=== PATIENT | female | born 1945 | race Caucasian/White ===

== ENCOUNTER 2016-12-08 20:12 | Inpatient (IN) | payer OTHER ==
[~2016-12-08] VITALS: Ht 154.9 cm; Wt 68.2 kg
[~2016-12-08 20:12] MED LIST: ALBUAER19 INH; BIOTCAP PO; CALCTAB7 PO; CLR10 PO; CZR50 PO; FERR1TAB13 PO; FLUT220A INH; GFNSR600 PO; MAGN400T6 PO; PRED20TA2 PO; PRLSR20 PO; TRIA37.5 PO
[2016-12-08] MEDS ORDERED: ALBUT/IPRATROP 3MG/0.5MG NEB 3 ML VIAL INH STA (20:39)
[2016-12-08] MEDS ORDERED: SODIUM CHLORIDE 0.9% 1000ML 1,000 ML IV STA (20:39)
[2016-12-08 20:59] LABS: BASO % 0.1 %; BASO ABS # 0.01 K/uL (0-0.2); COMPLETE YES; EOS % 1.1 %; HEMATOCRIT 47.2 % (37-47); IG% 0.3 %; LYMPH ABS # 1.07 K/uL (1.2-3.4); MEAN CORPUSCULAR HGB CONC 34.7 g/dl (32-36); MEAN PLATELET VOLUME 9.9 fL (7.4-10.4); MONO % 6.1 %; NEUT % 85.4 %; PLATELET COUNT 249 K/uL (130-400); RED BLOOD COUNT 5.13 M/uL (4.2-5.4); WHITE BLOOD COUNT 15.33 K/uL (4.8-10.8)
--- NOTE | 2016-12-08 21:07 | DIAGNOSTIC IMAGING REPORT ---
CHEST ONE VIEW PORTABLE CLINICAL HISTORY: Evaluate Fever/Sepsis fever COMPARISON STUDY: 10/11/2016 FINDINGS: Mild interstitial infiltrate left base superimposed upon mild chronic interstitial change. No evidence for cardiac enlargement. Diaphragms are smooth. Very slight blunting left lateral costophrenic angle. Minimal right basilar atelectatic change. IMPRESSION: Small interstitial infiltrate left base superimposed upon mild chronic baseline interstitial change. Electronically signed by: Darian Crowe M.D. 12/08/2016 9:06 PM Dictated Date/Time: 12/08/2016 9:05 PM
[2016-12-08 21:13] LABS: INR 1.1 (0.9-1.1); PROTHROMBIN TIME (PATIENT) 11.5 SECONDS (9.0-12.0)
[2016-12-08 21:15] LABS: ALT/SGPT 56 U/L (12-78); BLOOD UREA NITROGEN 8 mg/dl (7-18); BUN/CREATININE RATIO 8.8 (10-20); CALCIUM 9.7 mg/dl (8.5-10.1); CARBON DIOXIDE 25 mmol/L (21-32); CHLORIDE 97 mmol/L (98-107); CREATININE 0.93 mg/dl (0.60-1.20); GLUCOSE 123 mg/dl (70-99); SODIUM 135 mmol/L (136-145)
[2016-12-08 21:18] LABS: URINE APPEARANCE CLEAR (CLEAR); URINE BILIRUBIN NEG (NEG); URINE COLOR YELLOW; URINE EPITHELIAL CELL AUTO 0-5 /lpf (0-5); URINE NITRITE NEG (NEG); URINE PH 7.5 (4.5-7.5); URINE SPECIFIC GRAVITY 1.005 (1.000-1.030); UROBILINOGEN NEG (NEG); ZZUR CULT IF INDIC CLEAN CATCH NO
[2016-12-08 21:20] LABS: ALKALINE PHOSPHATASE 56 U/L (45-117); AST/SGOT 30 U/L (15-37)
[2016-12-08 21:22] LABS: MANUAL MICROSCOPIC REQUIRED? NO; REVIEW REQ? NO
[2016-12-08] MEDS ORDERED: CEFTRIAXONE SOD INJ 1 GM ADDVIAL IV STA (21:24)
[2016-12-08] MEDS ORDERED: POTASSIUM CHLORIDE 10 MEQ TABCR PO STA (21:24)
[2016-12-08] MEDS ORDERED: CALC-5 PO (21:27)
[2016-12-08] MEDS ORDERED: GLC/500 PO (21:29)
[2016-12-08] MEDS ORDERED: NITR-5 PO (21:29)
[2016-12-08] MEDS ORDERED: OPTIRAY 320 IV PRN (21:30)
[2016-12-08] MEDS ORDERED: AZITHROMYCIN IV 500 MG in DEXTROSE 5% 250ML 250 ML IV ONE (21:30)
--- NOTE | 2016-12-08 21:48 | DIAGNOSTIC IMAGING REPORT ---
CHEST CTA for PULMONARY ARTERIES CT DOSE: 299.06 mGy.cm HISTORY: Dyspnea chest pain TECHNIQUE: Multiaxial CT images of the chest were performed following the intravenous administration of contrast to evaluate the pulmonary arteries. Maximal intensity projection images were also obtained. COMPARISON STUDY: 10/11/2016 FINDINGS: Mild atherosclerotic change thoracic aorta and pulmonary arterial vasculature enhances appropriately. There are no major filling defects. There are small bilateral pleural effusions. Pulmonary vasculature is moderately prominent. Nodular change of both hemithoraces is slightly increased. This includes a slight increase in number as well as size. Compression deformities of the thoracic spine are similar. IMPRESSION: 1. No evidence for pulmonary embolus. 2. Findings of mild and/or developing congestive heart failure. 3. Small bilateral pleural effusions. 4. Pulmonary nodularity slightly progressive compared to the prior study. Metastatic disease is considered Electronically signed by: Darian Crowe M.D. 12/08/2016 9:47 PM Dictated Date/Time: 12/08/2016 9:42 PM
[2016-12-08] MEDS ORDERED: HYDROCODONE/HOMATROPINE SYRUP 5MG/1.5MG 5ML UDP PO STA (23:02)
--- NOTE | 2016-12-08 23:30 | EMERGENCY ROOM VISIT NOTE ---
History Report prepared by Mikala: Yuni Boles Under the Supervision of: Dr. Bin Thompson D.O. First contact with patient: 20:27 Chief Complaint: RESPIRATORY PROBLEMS Stated Complaint: TROUBLE BREATHING History of Present Illness The patient is a 71 year old female who presents to the Emergency Room with complaints of worsening shortness of breath beginning yesterday. She states that she has been using her nebulizer and rescue inhaler at home which has given her slight relief to her breathing. Talking and movement causes her shortness of breath to worsen. Today she experienced a racing heart, cough, weakness, fatigue and a fever. She has taken Tylenol today to control the fever. For the past 2 weeks that patient has been treated for a UTI by two different antibiotics. This is her third UTI since September. The patient was also recently diagnosed with acid reflux and was doing well controlling the symptoms until she went off her steroids. Source of History: patient Onset: yesterday Position: other (global) Quality: other (shortness of breath) Timing: worsening Modifying Factors (Worsening): movement, other (talking) Modifying Factors (Relieving): tylenol, other (rescue inhaler, nebulizer) Associated Symptoms: + cough, + fatigue, + fevers, + weakness Review of Systems See HPI for pertinent positives & negatives. A total of 10 systems reviewed and were otherwise negative. Past Medical & Surgical Medical Problems: (1) Abdominal pain (2) Benign neoplasm of colon (3) DVT, lower extremity (4) Essential hypertension (5) GENERAL OSTEOARTHROSIS (6) Hyperinsulinism (7) Idiopathic osteoporosis (8) Lumbar stenosis with neurogenic claudication Surgical Problems: (1) Hx of cholecystectomy Family History Cancer Diabetes mellitus Gallbladder disease Heart disease Hypertension Social History Smoking Status: Never Smoker Smokeless Tobacco Use: No Alcohol Use: occasionally Marital Status: Housing Status: lives with family Occupation Status: retired Current/Historical Medications Scheduled Albuterol Inhaler (Ventolin Inhaler), 2 PUFFS INH PRN Biotin (Hard Nails), 2.5 MG PO DALILY Calcium-Magnesium W/ Vitamin D (Calcium 500), 1 TAB PO BID Ferrous Sulfate (Kp Ferrous Sulfate), 1 TAB PO DAILY Fluticasone Propionate Hfa (Flovent Hfa 220MCG Inhaler), 2 PUFF INH BID Loratadine (Claritin), 10 MG PO DAILY Losartan Potassium (Losartan Potassium), 50 MG PO DAILY Magnesium Oxide (Mag-Ox), 400 MG PO DAILY Metformin Hcl (Glucophage), 500 MG PO BID Nitrofurantoin Monohyd Macrocr (Macrobid), 100 MG PO BID Omeprazole (Prilosec), 20 MG PO BID Triamterene/Hctz (Dyazide 37.5MG/25MG), 1 TAB PO DAILY Allergies Coded Allergies: Ciprofloxacin (Verified Allergy, Unknown, rash, 12/08/16) pt Lisinopril (Verified Adverse Reaction, Unknown, COUGH, 12/08/16) Statins (Verified Adverse Reaction, Unknown, joint and muscle pains, ) Physical Exam Vital Signs Date Time Temp Pulse Resp B/P Pulse Ox O2 Delivery O2 Flow Rate FiO2 12/08/16 21:55 120 28 118/89 95 Nasal Cannula 2.0 12/08/16 21:03 123 12/08/16 20:22 36.9 80 18 156/85 94 Room Air Physical Exam CONSTITUTIONAL/VITAL SIGNS: Reviewed / noted above. GENERAL: Non-toxic in appearance. INTEGUMENTARY: Warm, dry, and [place]. HEAD: Normocephalic. EYES: without scleral icterus or trauma. ENT/OROPHARYNX: clear and moist. LYMPHADENOPATHY/NECK: Is supple without lymphadenopathy or meningismus. RESPIRATORY: Lungs clear and equal. CARDIOVASCULAR: Regular rate and rhythm. GI/ABDOMEN: Soft and nontender. No organomegaly or pulsatile mass. No rebound or guarding. Normal bowel sounds. EXTREMITIES: Warm and well perfused. BACK: No CVA tenderness. NEUROLOGICAL: Intact without focal deficits. PSYCHIATRIC: normal affect. MUSCULOSKELETAL: Normally developed with good muscle tone. Medical Decision & Procedures ER Provider Diagnostic Interpretation: X ray results and stated below per my interpretation and radiologist interpretation. Other radiology results and stated below per my review and radiologist interpretation: CHEST ONE VIEW PORTABLE CLINICAL HISTORY: Evaluate Fever/Sepsis fever COMPARISON STUDY: 10/11/2016 FINDINGS: Mild interstitial infiltrate left base superimposed upon mild chronic interstitial change. No evidence for cardiac enlargement. Diaphragms are smooth. Very slight blunting left lateral costophrenic angle. Minimal right basilar atelectatic change. IMPRESSION: Small interstitial infiltrate left base superimposed upon mild chronic baseline interstitial change. Electronically signed by: Darian Crowe M.D. 12/08/2016 9:06 PM Dictated Date/Time: 12/08/2016 9:05 PM CHEST CTA for PULMONARY ARTERIES CT DOSE: 299.06 mGy.cm HISTORY: Dyspnea chest pain TECHNIQUE: Multiaxial CT images of the chest were performed following the intravenous administration of contrast to evaluate the pulmonary arteries. Maximal intensity projection images were also obtained. COMPARISON STUDY: 10/11/2016 FINDINGS: Mild atherosclerotic change thoracic aorta and pulmonary arterial vasculature enhances appropriately. There are no major filling defects. There are small bilateral pleural effusions. Pulmonary vasculature is moderately prominent. Nodular change of both hemithoraces is slightly increased. This includes a slight increase in number as well as size. Compression deformities of the thoracic spine are similar. IMPRESSION: 1. No evidence for pulmonary embolus. 2. Findings of mild and/or developing congestive heart failure. 3. Small bilateral pleural effusions. 4. Pulmonary nodularity slightly progressive compared to the prior study. Metastatic disease is considered Electronically signed by: Darian Crowe M.D. 12/08/2016 9:47 PM Dictated Date/Time: 12/08/2016 9:42 PM Laboratory Results 12/08/16 20:37 Red Blood Count 5.13, Mean Corpuscular Volume 92.0, Mean Corpuscular Hemoglobin 32.0, Mean Corpuscular Hemoglobin Concent 34.7, Mean Platelet Volume 9.9, Neutrophils (%) (Auto) 85.4, Lymphocytes (%) (Auto) 7.0, Monocytes (%) (Auto) 6.1, Eosinophils (%) (Auto) 1.1, Basophils (%) (Auto) 0.1, Neutrophils # (Auto) 13.10, Lymphocytes # (Auto) 1.07, Monocytes # (Auto) 0.93, Eosinophils # (Auto) 0.17, Basophils # (Auto) 0.01 12/08/16 20:37 Test 12/08/16 20:37 12/08/16 20:55 12/08/16 21:05 12/08/16 22:58 White Blood Count 15.33 K/uL (4.8-10.8) Red Blood Count 5.13 M/uL (4.2-5.4) Hemoglobin 16.4 g/dL (12.0-16.0) Hematocrit 47.2 % (37-47) Mean Corpuscular Volume 92.0 fL (80-100) Mean Corpuscular Hemoglobin 32.0 pg (25-34) Mean Corpuscular Hemoglobin Concent 34.7 g/dl (32-36) Platelet Count 249 K/uL (130-400) Mean Platelet Volume 9.9 fL (7.4-10.4) Neutrophils (%) (Auto) 85.4 % Lymphocytes (%) (Auto) 7.0 % Monocytes (%) (Auto) 6.1 % Eosinophils (%) (Auto) 1.1 % Basophils (%) (Auto) 0.1 % Neutrophils # (Auto) 13.10 K/uL (1.4-6.5) Lymphocytes # (Auto) 1.07 K/uL (1.2-3.4) Monocytes # (Auto) 0.93 K/uL (0.11-0.59) Eosinophils # (Auto) 0.17 K/uL (0-0.5) Basophils # (Auto) 0.01 K/uL (0-0.2) RDW Standard Deviation 44.9 fL (36.4-46.3) RDW Coefficient of Variation 13.3 % (11.5-14.5) Immature Granulocyte % (Auto) 0.3 % Immature Granulocyte # (Auto) 0.05 K/uL (0.00-0.02) Prothrombin Time 11.5 SECONDS (9.0-12.0) Prothromb Time International Ratio 1.1 (0.9-1.1) Activated Partial Thromboplast Time 25.9 SECONDS (21.0-31.0) Partial Thromboplastin Ratio 1.0 Anion Gap 13.0 mmol/L (3-11) Est Creatinine Clear Calc Drug Dose 48.8 ml/min Estimated GFR () 71.2 Estimated GFR (Non- 61.4 BUN/Creatinine Ratio 8.8 (10-20) Calcium Level 9.7 mg/dl (8.5-10.1) Total Bilirubin 0.6 mg/dl (0.2-1) Direct Bilirubin 0.2 mg/dl (0-0.2) Aspartate Amino Transf (AST/SGOT) 30 U/L (15-37) Alanine Aminotransferase (ALT/SGPT) 56 U/L (12-78) Alkaline Phosphatase 56 U/L (45-117) Total Creatine Kinase 69 U/L (26-192) Creatine Kinase MB < 0.5 ng/ml (0.5-3.6) Creatine Kinase MB Ratio (0-3.0) Troponin I < 0.015 ng/ml (0-0.045) Total Protein 8.5 gm/dl (6.4-8.2) Albumin 3.9 gm/dl (3.4-5.0) Urine Color YELLOW Urine Appearance CLEAR (CLEAR) Urine pH 7.5 (4.5-7.5) Urine Specific [place] 1.005 (1.000-1.030) Urine Protein NEG (NEG) Urine Glucose (UA) NEG (NEG) Urine Ketones NEG (NEG) Urine Occult Blood NEG (NEG) Urine Nitrite NEG (NEG) Urine Bilirubin NEG (NEG) Urine Urobilinogen NEG (NEG) Urine Leukocyte Esterase NEG (NEG) Urine WBC (Auto) 1-5 /hpf (0-5) Urine RBC (Auto) 0-4 /hpf (0-4) Urine Hyaline Casts (Auto) 0 /lpf (0-5) Urine Epithelial Cells (Auto) 0-5 /lpf (0-5) Urine Bacteria (Auto) NEG (NEG) Influenza Type A Antigen Neg for Influ A (NEG) Influenza Type B Antigen Neg for Influ B (NEG) Test 12/08/16 23:03 Laboratory results as stated above per my review. Medications Administered Medications (Trade) Dose Ordered Sig/Guillermo Route Start Time Stop Time Status Last Admin Dose Admin Sodium Chloride (Nss 1000ml) 1,000 ml @ 999 mls/hr Q1H1M STAT IV 12/08/16 20:39 12/08/16 21:39 DC 12/08/16 20:39 999 MLS/HR Albuterol/ Ipratropium (Duoneb) 3 ml NOW STAT INH 12/08/16 20:39 12/08/16 20:44 DC 12/08/16 20:39 3 ML Potassium Chloride (Klor-Con M10) 40 meq NOW STAT PO 12/08/16 21:24 12/08/16 21:28 DC 12/08/16 21:48 40 MEQ Ceftriaxone Sodium 1 gm 1 gm NOW STAT IV 12/08/16 21:24 12/08/16 21:28 DC 12/08/16 21:48 1 GM Azithromycin/ Dextrose (Zithromax IV/D5 250ml) 255 ml @ 125 mls/hr ONE ONCE IV 12/08/16 21:30 12/08/16 23:32 12/08/16 22:16 125 MLS/HR Hydrocodone Bit/ Homatropine Methylb (Hycodan Syrup) 5 ml NOW STAT PO 12/08/16 23:02 12/08/16 23:03 DC 12/08/16 23:07 5 ML ECG Indication: SOB/dyspnea Rate (beats per minute): 118 Rhythm: sinus tachycardia Findings: Q waves (Inferior), no acute ischemic change, no ectopy Change: no significant change (from 10/11/16) ED Course 2035: Previous medical records were reviewed. The patient was evaluated in room B6. A complete history and physical examination was performed. 2038: Douneb 3 ml INH, Sodium Chloride 1,000 ml @ 999 mls/hr IV. 2123: Rocephin Inj 1 gm IV, Klor-Con M10 40 meq PO. 2129: Azithromycin 500mg/ Dextrose 255 ml @ 125 mls/hr IV. 2249: Discussed the patient's case with Dr. Flor Lilly. The patient will be evaluated for further treatment and disposition. 2301: Hycodan Syrup 5 ml PO. Medical Decision The patient is a 71 year old female who presents to the ED with complaints of shortness of breath. According to family and the patient, the patient has a cough and shortness of breath as well as urinary tract infection since September. She has had increasing cough and shortness of breath over the past several weeks. She also is having shortness of breath with exertion. She has been diagnosed with reflux after being seen by ENT. She was placed on medication for this. The patient reportedly had a fever today at home. She has been taking Tylenol. She does not have a fever here. The patient's main symptom today is weakness and persistent coughing. Initial vital signs were unremarkable with a saturation of 94% on room air. She did become tachycardic during her stay. Her white blood cell count was 15.3. Potassium was 3.0. Chest x-ray revealed a left base infiltrate. This was not confirmed on chest CT scan. Urine did not show infection. Flu swab was negative. Troponin was negative. EKG showed a sinus tachycardia without cerumen change from previous EKG. CT scan of the chest reveals some pulmonary nodularity that is increased from October 11. Concern for metastatic disease. Also mild congestive heart failure. The patient was treated with Rocephin and Zithromax IV as well as by mouth potassium. She was also given a DuoNeb treatment and oral Hycodan. Because of the patient's persistent symptoms and her abnormal test results, the patient will be seen by the hospitalist service for further evaluation as an inpatient. the differential was considered includes acute myocardial infarction, acute coronary syndrome, myocarditis, pericarditis, pericardial effusions /tamponad, esophageal perforation, pulmonary embolism, pneumonia, pneumothorax, cardiomyopathy, congestive heart, anemia , COPD/asthma exacerbation. Consults Time Called: 2247 Consulting Physician: Dr. Flor Lilly Returned Call: [phone] Discussed the patient's case. The patient will be evaluated for further treatment and disposition. Impression Primary Impression: Dyspnea Additional Impressions: CHF (congestive heart failure) Pulmonary nodules Weakness Hypokalemia Pneumonia Scribe Attestation The scribe's documentation has been prepared under my direction and personally reviewed by me in its entirety. I confirm that the note above accurately reflects all work, treatment, procedures, and medical decision making performed by me. Departure Information Dispostion Being Evaluated By Hospitalist Referrals Kaz Andersen MD (PCP) Problem Qualifiers
[2016-12-09] VITALS (16 sets, daily range): BP systolic 95–125; BP diastolic 63–83; PULSE 85–122; TEMP 36.4–37.5; O2SAT 91–96; Ht 154.9 cm; Wt 68.2 kg
[2016-12-09] MEDS ORDERED: ACETAMINOPHEN 325 MG TAB PO PRN (00:30)
--- NOTE | 2016-12-09 01:38 | History and Physical ---
History & Physical Date & Time of Service: Dec 09, 2016 at 01:38 . Chief Complaint: shortness of breath . Primary Care Physician: Kaz Andersen MD . History of Present Illness Source: patient, family, clinic records, hospital records 71 [address]O female followed by Dr[address] Andersen. History of hypertension, asthma, GERD, DM type 2, and other problems noted below. Being followed by ENT for problems with GERD and associated hoarseness. Echo performed 10/30/16 for dyspnea on exertion. LVEF was 60-64%. Grade I diastolic dysfunction noted. RV systolic function was normal. Small circumferential pericardial effusion was noted. Follow-up echo was scheduled. E coli UTI diagnosed 11/28/16, treated with a 7-day course of nitrofurantoin. Presented to ED with 24 hour history of fever, chills, cough, SOB, malaise. Cough productive of white mucus. No associated chest pain. She is a nonsmoker. . Past Medical/Surgical History Chronic Medical Problems: (1) Asthma Status: Chronic (2) Munguia's esophagus Status: Chronic (3) Benign neoplasm of colon Status: Chronic (4) Diabetes mellitus, type 2 Status: Chronic (5) Dyslipidemia Status: Chronic (6) Essential hypertension Status: Chronic (7) GERD (gastroesophageal reflux disease) Status: Chronic (8) History of DVT (deep vein thrombosis) Status: Chronic (9) History of pancreatitis Permanent Comment: secondary to gallstone Status: Chronic (10) History of vertebral compression fracture Permanent Comment: T12 Status: Chronic (11) Lumbar stenosis with neurogenic claudication Status: Chronic (12) Osteoporosis Status: Chronic (13) Statin intolerance Status: Chronic Surgical Problems: (1) Status post cholecystectomy Status: Chronic . Family History Cancer Diabetes mellitus Gallbladder disease Heart disease Hypertension Social History Smoking Status: Never Smoker Smokeless Tobacco Use: No Alcohol Use: occasionally Marital Status: Housing status: lives with family Occupational Status: retired Immunizations History of Influenza Vaccine: Yes History of Tetanus Vaccine?: Yes History of Pneumococcal: Yes Pneumococcal Date: Jul 06, 2009 History of Hepatitis B Vaccine: Unknown Multi-Drug Resistant Organisms History of MDRO: No Allergies Coded Allergies: Ciprofloxacin (Verified Allergy, Unknown, rash, 12/08/16) pt Lisinopril (Verified Adverse Reaction, Unknown, COUGH, 12/08/16) Statins (Verified Adverse Reaction, Unknown, joint and muscle pains, ) Home Medications Scheduled Albuterol Inhaler (Ventolin Inhaler), 2 PUFFS INH PRN Biotin (Hard Nails), 2.5 MG PO DALILY Calcium-Magnesium W/ Vitamin D (Calcium 500), 1 TAB PO BID Ferrous Sulfate (Kp Ferrous Sulfate), 1 TAB PO DAILY Fluticasone Propionate Hfa (Flovent Hfa 220MCG Inhaler), 2 PUFF INH BID Loratadine (Claritin), 10 MG PO DAILY Losartan Potassium (Losartan Potassium), 50 MG PO DAILY Magnesium Oxide (Mag-Ox), 400 MG PO DAILY Metformin Hcl (Glucophage), 500 MG PO BID Nitrofurantoin Monohyd Macrocr (Macrobid), 100 MG PO BID Omeprazole (Prilosec), 20 MG PO BID Triamterene/Hctz (Dyazide 37.5MG/25MG), 1 TAB PO DAILY Review of Systems Constitutional: + chills, + fever, + weight loss (about 5 lbs) Eyes: No diplopia, No worsening of vision ENT: + problem reported (hoarseness), No hearing loss, No nasal symptoms, No sore throat Respiratory: + cough, + shortness of breath, No hemoptysis Cardiovascular: No chest pain, No edema Abdomen: + nausea (due to antibiotics), + problem reported (GERD), + vomiting ( due to antibiotics), No GI bleeding, No diarrhea Musculoskeletal: + joint pain Genitourinary - Female: + problem reported (recent dysuria, resolved with antibiotics) Neurologic: + problem reported (occasional headache) Endocrine: + fatigue, No excessive thirst, No excessive urination Hematologic / Lymphatic: No abnormal bleeding/bruising Integumentary: No new/changing skin lesions, No rash Physical Exam Vital Signs Date Time Temp Pulse Resp B/P Pulse Ox O2 Delivery O2 Flow Rate FiO2 12/09/16 01:35 122 111/59 95 12/09/16 01:05 124 12/08/16 23:46 120 18 110/68 93 Nasal Cannula 2.0 12/08/16 21:55 120 28 118/89 95 Nasal Cannula 2.0 12/08/16 21:03 123 12/08/16 20:22 36.9 80 18 156/85 94 Room Air General Appearance: WD/WN, + mild distress Head: normocephalic, atraumatic Eyes: normal inspection, PERRL, EOMI, sclerae normal (conjunctivae pink) ENT: normal ENT inspection, hearing grossly normal, pharynx normal Neck: supple, no adenopathy, thyroid normal, trachea midline, + JVD (slight JVD ) Respiratory/Chest: no respiratory distress, no accessory muscle use, + rales ( few rales at bases), + pertinent finding (wheezing with forced expiration) Cardiovascular: regular rate, rhythm, no edema, no gallop, no murmur, normal peripheral pulses, + tachycardia, + pertinent finding (slight JVD; venous insufficiency lower extremities) Abdomen/GI: normal bowel sounds, non tender, soft, no organomegaly, no pulsatile mass Extremities/Musculoskelatal: no calf tenderness, normal capillary refill, no pedal edema, + pertinent finding (venous insufficiency) Neurologic/Psych: field merchandiser II-XII nml as tested (PERRL, EOMI, no facial palsy), no motor/sensory deficits (grossly intact), alert, normal mood/affect, oriented x 3 Skin: normal color, warm/dry, no rash Lymphatic: no adenopathy Diagnostics Laboratory Results Results Past 24 Hours Test 12/08/16 20:37 12/08/16 20:55 12/08/16 21:05 12/08/16 23:16 Range/Units White Blood Count 15.33 4.8-10.8 K/uL Red Blood Count 5.13 4.2-5.4 M/uL Hemoglobin 16.4 12.0-16.0 g/dL Hematocrit 47.2 37-47 % Mean Corpuscular Volume 92.0 80-100 fL Mean Corpuscular Hemoglobin 32.0 25-34 pg Mean Corpuscular Hemoglobin Concent 34.7 32-36 g/dl Platelet Count 249 130-400 K/uL Mean Platelet Volume 9.9 7.4-10.4 fL Neutrophils (%) (Auto) 85.4 % Lymphocytes (%) (Auto) 7.0 % Monocytes (%) (Auto) 6.1 % Eosinophils (%) (Auto) 1.1 % Basophils (%) (Auto) 0.1 % Neutrophils # (Auto) 13.10 1.4-6.5 K/uL Lymphocytes # (Auto) 1.07 1.2-3.4 K/uL Monocytes # (Auto) 0.93 0.11-0.59 K/uL Eosinophils # (Auto) 0.17 0-0.5 K/uL Basophils # (Auto) 0.01 0-0.2 K/uL RDW Standard Deviation 44.9 36.4-46.3 fL RDW Coefficient of Variation 13.3 11.5-14.5 % Immature Granulocyte % (Auto) 0.3 % Immature Granulocyte # (Auto) 0.05 0.00-0.02 K/uL Prothrombin Time 11.5 9.0-12.0 SECONDS Prothromb Time International Ratio 1.1 0.9-1.1 Activated Partial Thromboplast Time 25.9 21.0-31.0 SECONDS Partial Thromboplastin Ratio 1.0 Sodium Level 135 136-145 mmol/L Potassium Level 3.0 3.5-5.1 mmol/L Chloride Level 97 98-107 mmol/L Carbon Dioxide Level 25 21-32 mmol/L Anion Gap 13.0 3-11 mmol/L Blood Urea Nitrogen 8 7-18 mg/dl Creatinine 0.93 0.60-1.20 mg/dl Est Creatinine Clear Calc Drug Dose 48.8 ml/min Estimated GFR () 71.2 Estimated GFR (Non- 61.4 BUN/Creatinine Ratio 8.8 10-20 Random Glucose 123 70-99 mg/dl Calcium Level 9.7 8.5-10.1 mg/dl Total Bilirubin 0.6 0.2-1 mg/dl Direct Bilirubin 0.2 0-0.2 mg/dl Aspartate Amino Transf (AST/SGOT) 30 15-37 U/L Alanine Aminotransferase (ALT/SGPT) 56 12-78 U/L Alkaline Phosphatase 56 45-117 U/L Total Creatine Kinase 69 26-192 U/L Creatine Kinase MB < 0.5 0.5-3.6 ng/ml Creatine Kinase MB Ratio 0-3.0 Troponin I < 0.015 0-0.045 ng/ml Total Protein 8.5 6.4-8.2 gm/dl Albumin 3.9 3.4-5.0 gm/dl Urine Color YELLOW Urine Appearance CLEAR CLEAR Urine pH 7.5 4.5-7.5 Urine Specific [place] 1.005 1.000-1.030 Urine Protein NEG NEG Urine Glucose (UA) NEG NEG Urine Ketones NEG NEG Urine Occult Blood NEG NEG Urine Nitrite NEG NEG Urine Bilirubin NEG NEG Urine Urobilinogen NEG NEG Urine Leukocyte Esterase NEG NEG Urine WBC (Auto) 1-5 0-5 /hpf Urine RBC (Auto) 0-4 0-4 /hpf Urine Hyaline Casts (Auto) 0 0-5 /lpf Urine Epithelial Cells (Auto) 0-5 0-5 /lpf Urine Bacteria (Auto) NEG NEG Influenza Type A Antigen Neg for Influ A NEG Influenza Type B Antigen Neg for Influ B NEG Lactic Acid Level 2.4 0.4-2.0 mmol/L Pro-B-Type Natriuretic Peptide 191 0-900 pg/ml Procalcitonin 0.13 0-0.5 ng/mL Microbiology Results 12/08/16 Blood Culture, Received Pending 12/08/16 Blood Culture, Received Pending Diagnostic Radiology CHEST ONE VIEW PORTABLE IMPRESSION: Small interstitial infiltrate left base superimposed upon mild chronic baseline interstitial change. Electronically signed by: Darian Crowe M.D. 12/08/2016 9:06 PM CHEST CTA for PULMONARY ARTERIES IMPRESSION: 1. No evidence for pulmonary embolus. 2. Findings of mild and/or developing congestive heart failure. 3. Small bilateral pleural effusions. 4. Pulmonary nodularity slightly progressive compared to the prior study. Metastatic disease is considered Electronically signed by: Darian Crowe M.D. 12/08/2016 9:47 PM . . EKG EKG performed at 20:45 reviewed and demonstrated sinus tachycardia at 118 / minute, possible age-indeterminant inferior infarct, poor R-wave progression, NSSTTWA's. Tracing compared to 10/11/16. Inferior Q-waves and poor R-wave progression were noted at that time. . Impression Assessment and Plan FEVER, COUGH, SOB History consistent with pulmonary infection Chest x-ray shows LLL infiltrate. CTA neg for pulmonary embolism. Consider community acquired pneumonia or aspiration pneumonia. Influenza A/B Ag neg; check GLASS ROBOT OPERATOR PCR. Blood cultures obtained in ED. Check sputum culture as well. Allergic to quinolones. Received azithromycin and ceftriaxone in ED. Continue azithromycin. Add piperacillin / tazobactam for broader coverage, including aspiration. Consider nitrofurantoin pulmonary toxicity. Consult Pulmonary Medicine. EXACERBATION OF ASTHMA Patient thinks that she probably has asthma. PFT's were recently done in clinic. Now has wheezing with forced expiration. Change nebs to levalbuterol / ipratropium due to tachycardia. Short course of steroids- methylprednisolone 40 mg IV BID, then switch to prednisone. ABNORMAL CT CT findings as noted above. Consult Pulmonary Medicine for their input. ABNORMAL EKG / PULMONARY EDEMA / RECENT PERICARDIAL EFFUSION EKG suggests prior inferior and anterior infarcts, but previously noted and no wall motion abnormalities noted on recent echo. CT chest after fluid resuscitation showed some pulmonary edema. Pulmonary edema probable acute left ventricular diastolic heart failure due to fluid resuscitation. Check repeat echo to reassess wall motion, LV function, and pericardial effusion. Diurese PRN. HYPERTENSION Continue losartan with hold parameters. Hold triamterene / HCTZ. Follow and titrate Rx. GERD Continue PPI. DM TYPE 2 Usually well-controlled on metformin. Check HgbA1C. Anticipated fluctuating blood sugars due to acute illness and glucocorticoids. Lantus / NovoLog per protocol. VTE PROPHYLAXIS Moderate-high risk for VTE. SQ enoxaparin. RESUSCITATION STATUS Discussed with patient. She has a living will. She would like resuscitation attempted in the event of a cardiopulmonary arrest if there is a reasonable chance of a meaningful recovery, but does not want prolonged extraordinary measures if prognosis is poor. Therefore, code status = "Level 1" (full resuscitation). DISPOSITION Admit to Telemetry Unit. Expected discharge to home. Internal Medicine follow-up with Dr. Andersen. . VTE Prophylaxis VTE Risk Assessment Done? Y/N: Yes Risk Level: Moderate Given or contraindicated: Enoxaparin (Lovenox)SQ
[2016-12-09] MEDS ORDERED: LEVALBUTEROL 0.63MG/3 ML NEB INH PRN (01:45)
[2016-12-09] MEDS ORDERED: METHYLPREDNISOLONE IV 40 MG in SYRINGE 0 ML IV STA (01:46)
[2016-12-09] MEDS ORDERED: PIPERACILL/TAZOBAC IV 4.5 GM in DEXTROSE 5% 100ML 100 ML IV SCH (02:00)
[2016-12-09] MEDS: LEVALBUTEROL 1.25MG/0.5ML NEB INH SCH ×5 (02:16→19:08)
[2016-12-09] MEDS: IPRATROPIUM BROMIDE NEB SOLN 0.02% 2.5 ML VIAL INH SCH ×5 (02:16→19:08)
[2016-12-09] MEDS ORDERED: PIPERACILL/TAZOBAC IV 3.375 GM in DEXTROSE 5% 100ML IV ONE (02:30)
[2016-12-09] MEDS ORDERED: PIPERACILL/TAZOBAC CONSULT ACTIVE PRN (02:30)
[2016-12-09 05:25] LABS: HEMATOCRIT 41.9 % (37-47); MEAN CELL VOLUME 90.7 fL (80-100); MEAN CORPUSCULAR HEMOGLOBIN 31.6 pg (25-34); MEAN CORPUSCULAR HGB CONC 34.8 g/dl (32-36); MEAN PLATELET VOLUME 9.6 fL (7.4-10.4); PLATELET COUNT 204 K/uL (130-400); RED BLOOD COUNT 4.62 M/uL (4.2-5.4); WHITE BLOOD COUNT 13.98 K/uL (4.8-10.8)
[2016-12-09 06:04] LABS: ALB/GLOB RATIO 0.8 (0.9-2); ALKALINE PHOSPHATASE 44 U/L (45-117); ALT/SGPT 43 U/L (12-78); AST/SGOT 21 U/L (15-37); BLOOD UREA NITROGEN 7 mg/dl (7-18); BUN/CREATININE RATIO 8.7 (10-20); CALCIUM 9.2 mg/dl (8.5-10.1); CARBON DIOXIDE 23 mmol/L (21-32); CHLORIDE 100 mmol/L (98-107); CREATININE 0.84 mg/dl (0.60-1.20); GLUCOSE 168 mg/dl (70-99); MAGNESIUM 1.5 mg/dl (1.8-2.4); POTASSIUM 3.6 mmol/L (3.5-5.1); SODIUM 135 mmol/L (136-145)
[2016-12-09] MEDS ORDERED: [UNRECOGNIZED DRUG - OTHER] IV STA (06:18)
[2016-12-09] MEDS ORDERED: MAGNESIUM SULFATE IV STA (06:18)
[2016-12-09] MEDS ORDERED: PREMIXED IV STA (06:18)
[2016-12-09] MEDS ORDERED: D5W IV STA (06:18)
[2016-12-09] MEDS: PIPERACILL/TAZOBAC IV 3.375 GM in DEXTROSE 5% 100ML IV SCH ×2 (06:20→14:28)
[2016-12-09] MEDS: FLUTICASONE HFA 220 MCG INHALER INH SCH ×2 (08:35→21:15)
[2016-12-09] MEDS: PANTOprazole SOD 40 MG TAB PO SCH ×2 (08:36→21:16)
[2016-12-09] MEDS: LORATADINE 10 MG TAB PO SCH (08:36)
[2016-12-09] MEDS ORDERED: MAGNESIUM OXIDE 400 MG TAB PO SCH (09:00)
[2016-12-09] MEDS ORDERED: LOSARTAN POTASSIUM 50 MG TAB PO SCH (09:00)
[2016-12-09] MEDS: ENOXAPARIN 40 MG/0.4 ML SYR SC SCH (09:00)
[2016-12-09 09:11] LABS: ESTIMATED AVERAGE GLUCOSE 123 mg/dl; HA1C FLAG Normal (Normal)
[2016-12-09] MEDS: MAGNESIUM SULFATE 1GM / D5W 1 GM in PREMIXED IN D5W 100 ML IV SCH ×2 (10:39→12:12)
--- NOTE | 2016-12-09 11:55 | ECHOCARDIOGRAM REPORT ---
*NOTICE TO RECEIVING CONSTITUTION PARTY AGENCY This information is strictly Confidential and protected under [place] law. [place] law prohibits you from making any further disclosure of this information unless further disclosure is expressly permitted by the written consent of the person to whom it pertains or is authorized by law. A general authorization for the release of medical or other information is not sufficient for this purpose. Hospital accepts no responsibility if the information is made available to any other person, INCLUDING THE PATIENT. Interpretation Summary * Name: KAYLYNN WILKINSON Study Date: 12/09/2016 09:43 AM BP: 105/70 mmHg * Patient Location: C.2T\S\S229\S\2 HR: 92 * : 1945 (M/d/yyy) Gender: Female Height: 60 in * Age: 71 yrs Ethnicity: [place] Weight: 153 lb * Ordering Physician: Rj Ray * Referring Physician: Self, Referred * Performed By: Santino Goyal RCS * * Reason For Study: Pericardial Dz * BSA: 1.7 m2 * -- Conclusions -- * The left ventricular cavity is small. * There is mild concentric left ventricular hypertrophy. * The left ventricle is hyperdynamic. * Ejection Fraction = >70 %. * Borderline right ventricular enlargement. * The right ventricular systolic function is borderline reduced. * Grade I diastolic dysfunction, (abnormal relaxation pattern). * There is a small to moderate predominantly apical and lateral pericardial effusion with organized appearence and no hemodynamic significance. Procedure Details * A complete two-dimensional transthoracic echocardiogram was performed (2D, M-mode, Doppler and color flow Doppler). * A contrast injection of Definity was performed to improve assessment of LV function. * Contrast was injected into an intravenous site in the right arm. * One vial of Definity ultrasound contrast was diluted in normal saline to a total volume of 10 ml. A total of '2' ml of solution was administered during imaging. * Lot # [id number] of Definity utilized for procedure. * Normal transthoracic echocardiogram. * Expiration date 1DEC17. * The attending nurse who injected the contrast agent was KAREN Oconnor. Left Ventricle * The left ventricular cavity is small. * There is mild concentric left ventricular hypertrophy. * Ejection Fraction = >70 %. * The left ventricle is hyperdynamic. * The left ventricular wall motion is normal. Right Ventricle * Borderline right ventricular enlargement. * The right ventricular systolic function is borderline reduced. Atria * The left atrial size is normal. * Right atrial size is normal. * No ASD detected; PFO is not assessed. Mitral Valve * The mitral valve anatomy is normal. * There is no mitral valve stenosis. * There is trace mitral regurgitation. Tricuspid Valve * The tricuspid valve anatomy is normal. * There is no tricuspid stenosis. * There is trace tricuspid regurgitation. Aortic Valve * The aortic valve is trileaflet. * No hemodynamically significant valvular aortic stenosis. * No aortic regurgitation is present. Pulmonic Valve * The pulmonic valve is not well visualized. Great Vessels * The aortic root is normal size. Pericardium/Pleural * There is a small to moderate predominantly apical and lateral pericardial effusion with organized appearence and no hemodynamic significance. Great Vessels * Normal inferior vena cava diameter and respiratory variation suggests normal central venous pressure. Left Ventricular Diastolic Function * Grade I diastolic dysfunction, (abnormal relaxation pattern). MMode 2D Measurements and Calculations IVSd 1.0 cm IVSs 1.2 cm LVIDd 3.2 cm LVIDs 1.7 cm LVPWd 10 cm LVPWs 1.2 cm IVS/LVPW 1.0 FS 46.1 % EDV(Teich) 40.3 ml ESV(Teich) 8.5 ml EF(Teich) 78.8 % EDV(cubed) 32.1 ml ESV(cubed) 5.0 ml EF(cubed) 84.4 % % IVS thick 22.6 % % LVPW thick 20.1 % LV mass(C)d 89.9 grams LV mass(C)dI 54.0 grams/m\S\2 LV mass(C)s 55.8 grams LV mass(C)sI 33.5 grams/m\S\2 CO(Teich) 3.0 l/min CI(Teich) 1.8 l/min/m\S\2 SV(Teich) 31.8 ml SI(Teich) 19.1 ml/m\S\2 CO(cubed) 2.5 l/min CI(cubed) 1.5 l/min/m\S\2 SV(cubed) 27.1 ml SI(cubed) 16.3 ml/m\S\2 Ao root diam 3.5 cm Ao root area 9.9 cm\S\2 ACS 1.7 cm LA dimension 3.4 cm LA/Ao 0.95 LVAd ap4 23.3 cm\S\2 LVLd ap4 7.0 cm EDV(MOD-sp4) 64.0 ml LVAs ap4 9.5 cm\S\2 LVLs ap4 5.3 cm ESV(MOD-sp4) 14.0 ml EF(MOD-sp4) 78.1 % LVAd ap2 20.6 cm\S\2 LVLd ap2 6.7 cm EDV(MOD-sp2) 52.0 ml LVAs ap2 9.1 cm\S\2 LVLs ap2 5.4 cm ESV(MOD-sp2) 13.0 ml EF(MOD-sp2) 75.0 % CO(MOD-sp4) 4.7 l/min CI(MOD-sp4) 2.8 l/min/m\S\2 SV(MOD-sp4) 50.0 ml SI(MOD-sp4) 30.0 ml/m\S\2 CO(MOD-sp2) 3.7 l/min CI(MOD-sp2) 2.2 l/min/m\S\2 SV(MOD-sp2) 39.0 ml SI(MOD-sp2) 23.4 ml/m\S\2 Doppler Measurements and Calculations MV E max isaiah 70.6 cm/sec MV A max isaiah 117.0 cm/sec MV E/A 0.60 MV P1/2t max isaiah 93.4 cm/sec MV P1/2t 54.6 msec MVA(P1/2t) 4.0 cm\S\2 MV dec slope 501.2 cm/sec\S\2 MV dec time 0.23 sec Ao V2 max 118.8 cm/sec Ao max PG 5.6 mmHg Ao max PG (full) 1.6 mmHg LV V1 max PG 4.0 mmHg LV V1 max 100.2 cm/sec
[2016-12-09] MEDS ORDERED: POLYETHYLENE (MIRALAX) 17 GM PACK PO PRN (12:45)
[2016-12-09] MEDS ORDERED: FUROSEMIDE INJ 20 MG in SYRINGE 0 ML IV ONE ×2 (13:00→19:00)
[2016-12-09] MEDS ORDERED: INSULIN GLARGINE SOLOSTAR 100 UNITS/ML 3 ML PEN SC ONE (13:00)
[2016-12-09] MEDS ORDERED: POTASSIUM CHLORIDE 20 MEQ TABCR PO ONE (13:00)
[2016-12-09] MEDS ORDERED: POLYETHYLENE (MIRALAX) 17 GM PACK PO ONE (13:00)
[2016-12-09 13:08] LABS: INFLUENZA A PCR Neg for Influ A (NEG); INFLUENZA B PCR Neg for Influ B (NEG)
[2016-12-09] MEDS: INSULIN ASPART 100 UNITS/ML 3 ML PEN SC SCH ×3 (13:14→21:00)
--- NOTE | 2016-12-09 16:02 | Pulmonary Consultation ---
History General Date of Service: Dec 09, 2016. Stated Complaint: Dyspnea HPI The patient is a 71 year old female who presents to [facility] with complaints of Dyspnea. The patient's primary care provider is Kaz Andersen MD. 71y/o female presented to the ER with complaints of increased SOB starting the day prior to admission. She was treated as an outpatient with a nebulizer which gave her minimal relief. Here SOD/dyspnea was made worse with any type of exertion including talking. She is being worked up over the last 3-4 months for the progressive dyspnea on exertion as well as coughing. She has had a echocardiogram as well as pulmonary function tests performed. She is also been treated for 3 episodes a urinary tract infection during the last 2-3 months as well. She was also sent to ENT Dr. Bin Moraes and was diagnosed with gastroesophageal reflux disease adding to her chronic cough. Notes: palpitations, cough, weakness, fatigue, and fever Over the previous 2 weeks the patient was treated for a UTI with two different anti-biotic courses. With three UTIs since September Denies: Classic cardiac chest pain, pleurisy, weight loss, productive cough, hemoptysis ED: VS: resp rate 18-28, SaO2: 94-95(RA-2Lnc), Pulse: 80-120 Work-Up: LABS: 1)WBC: 15K14K 2)INR: 1.1 3)Albumin: 3.2 4)A1C: 5.9 5)Influ A+B: Negative 6)Lactic Acid: 2.4 7)Troponin-I: WNL 8)BNP: 190 CHEST ONE VIEW PORTABLE//COMPARISON STUDY: 10/11/2016 1.Mild interstitial infiltrate left base superimposed upon 2.mild chronic interstitial change 3.Very slight blunting left lateral costophrenic angle 4.Minimal right basilar atelectatic change CHEST CTA for PULMONARY ARTERIEs//COMPARISON STUDY: 10/11/2016 and CTA from 1. No evidence for pulmonary embolus. 2. Findings of mild and/or developing congestive heart failure. 3. Small bilateral pleural effusions. 4. Pulmonary nodularity slightly progressive compared to the prior study 5. Bilateral nodules largest in the RML 9.5mm increased in size from 6.mm in 07/11 Mammogram (05/15/2016) WNL EKG: Sinus-tachy 120/old ST changes Cardiac Echo: (notable changes from cardiac echo=06/08/12) LV: EF=>70%, mild concentric LVH, grade 1 diastolic dysfunction RV: borderline enlargement, decreased systolic function Pericardial effusion: small-moderate apical and lateral organized appearance jim hemodynamic significance Treatment: 1)DuoNeb 2)Ceftriaxone 3)Azithromycin 500mg 4)Prednisone 40mg QD 5)Methylprednisolone 20mg x one 6)Lovenox 40sc QD 7)Flovent 220mcg BID 8)Claritin 10mg QD 9)Atrovent/Xopenex Neb 10)Hycodan 11)Zosyn Pulmicort function tests 11/27/2016 FEV1/FVC: 79 FEV1: 2.03/101% FVC: 2.56/96% FEF 25/75%: 115% Spirometry when passed 6 seconds Historian: patient, family, EMS Review of Systems Constitutional: reports: malaise, weakness Cardiovascular: reports: chest pressure, orthopnea, palpitations Respiratory: reports: PRATER, cough, wheezing Gastrointestinal: reports: no symptoms Genitourinary - Female: reports: no symptoms Musculoskeletal: reports: no symptoms Integumentary: reports: no symptoms Neurologic: reports: no symptoms Psychiatric: reports: no symptoms Endocrine: no symptoms Hematologic / Lymphatic: no symptoms Allergic / Immunologic: no symptoms Past Medical History Past Medical History: (1) Asthma (2) Munguia's esophagus (3) Benign neoplasm of colon (4) Diabetes mellitus, type 2 (5) Dyslipidemia (6) Essential hypertension (7) GERD (8) LLE-DVT (Left iliac-left common femoral-greater saphenous) Thought to be secondary to immobilization from back surgery (9) History of pancreatitis/secondary to gallstone (10) History of vertebral compression fracture T12 (11) Lumbar stenosis with neurogenic claudication (12) Osteoporosis (13) Statin intolerance (14) UTI: E-Coli Past Surgical History: (1)Cholecystectomy (2)Dilation and Curettage (3)Lumbar surgery Family History Cancer Diabetes mellitus Gallbladder disease Heart disease Hypertension Social History Hx Tobacco Use In Past Year?: No Smoking Status: Never Smoker Marital status: Housing status: lives with family Occupational Status: retired Immunizations History of Influenza Vaccine: Yes History of Tetanus Vaccine?: Yes History of Pneumococcal: Yes Pneumococcal Date: Jul 06, 2009 History of Hepatitis B Vaccine: Unknown Date Of Other Immunizations: Feb 11, 2011 History of MDRO History of MDRO: No Allergies Coded Allergies: Ciprofloxacin (Verified Allergy, Unknown, rash, 12/08/16) pt Lisinopril (Verified Adverse Reaction, Unknown, COUGH, 12/08/16) Statins (Verified Adverse Reaction, Unknown, joint and muscle pains, ) Current Medications Reported Home Medications Medications Dose Route/Sig Max Daily Dose Days Date Category Macrobid (Nitrofurantoin Macrocrystals) 100 Mg Cap 100 Mg PO BID 12/08/16 Reported Glucophage (Metformin Hcl) 500 Mg Tab 500 Mg PO BID 12/08/16 Reported Calcium 500 (Calcium-Magnesium W/ Vitamin D) 1 Tab Tab 1 Tab PO BID 12/08/16 Reported Kp Ferrous Sulfate (Ferrous Sulfate) 325 Mg Tab 1 Tab PO DAILY 30 10/11/16 Reported Mag-Ox (Magnesium Oxide) 400 Mg Tab 400 Mg PO DAILY 10/11/16 Reported Dyazide 37.5MG/25MG (Triamterene/HCTZ) Cap 1 Tab PO DAILY 08/21/14 Reported Hard Nails (Biotin) 2.5 Mg Cap 2.5 Mg PO DALILY 07/12/14 Reported Losartan Potassium 50 Mg Tab 50 Mg PO DAILY 07/12/14 Reported Ventolin Inhaler (Albuterol) Aers 2 Puffs INH PRN 07/12/14 Reported Flovent Hfa 220MCG Inhaler (Fluticasone Propionate Hfa) 220 Mcg/ Aer 2 Puff INH BID 07/12/14 Reported Claritin (Loratadine) 10 Mg Tab 10 Mg PO DAILY 07/03/09 Reported Prilosec (Omeprazole) 20 Mg Capcr 20 Mg PO BID 07/04/09 Reported Physical Physical Exam Vital Signs: Date Time Temp Pulse Resp B/P Pulse Ox O2 Delivery O2 Flow Rate FiO2 12/09/16 12:00 91 Room Air 12/09/16 11:30 36.6 92 16 104/73 91 Room Air 12/09/16 11:23 92 20 91 Nasal Cannula 1.0 12/09/16 08:00 92 Room Air 12/09/16 07:28 86 20 95 Nasal Cannula 1.0 12/09/16 07:20 36.6 85 16 108/73 95 2.0 12/09/16 04:00 Nasal Cannula 12/09/16 03:58 37.3 100 18 105/70 93 Nasal Cannula 2.0 12/09/16 02:17 122 20 95 Nasal Cannula 2.0 12/09/16 02:03 37.5 115 22 100/70 95 Nasal Cannula 2.0 12/09/16 01:35 122 111/59 95 12/09/16 01:05 124 12/08/16 23:46 120 18 110/68 93 Nasal Cannula 2.0 12/08/16 21:55 120 28 118/89 95 Nasal Cannula 2.0 12/08/16 21:03 123 12/08/16 20:22 36.9 80 18 156/85 94 Room Air General Appearance: WELL-APPEARING, NO APPARENT DISTRESS Head: NORMOCEPHALIC, ATRAUMATIC Eyes: PERRLA, NO DISCHARGE, EOMI, SCLERAE NORMAL ENT: NORMAL EAR EXAM, NORMAL NASAL EXAM, NORMAL MOUTH EXAM, NORMAL THROAT EXAM , NORMAL DENTAL EXAM Neck: NORMAL RANGE OF MOTION, NO TENDERNESS, TRACHEA MIDLINE Respiratory: other (decreased breath sounds at the posterior basis minimal crackles appreciated) Cardiovasular: REGULAR RATE/RHYTHM, NORMAL S1S2, NO M/G/R, NO MURMUR, NO GALLOP Abdomen: NON TENDER, NORMAL BOWEL SOUNDS, NO REBOUND, NO MASSES, NO GUARDING, NO ORGANOMEGALY, NORMAL RECTAL EXAM Genitourinary - Female: EXTERNAL GENITALIA NORMAL Upper Extremities: NO EDEMA Lower Extremities: abnormal exam (right lower extremity diffuse varicose veins mild increase in diameter as compared to left) Pulses: carotid (R) (2+), carotid (L) (2+), dorsalis pedis (R) (1+), dorsalis pedis (L) (1+) Neuro: ALERT, ORIENTED x 3, NORMAL MOTOR EXAM, NORMAL SENSATION, NORMAL CEREBELLAR EXAM Reflexes: biceps (R) (2+), bicpes (L) (2+) Babinski Testing: right (downgoing), left (downgoing) Psychiatric: NORMAL AFFECT, NO SUICIDAL IDEATION, CONTRACTS FOR SAFETY, anxious Diagnostics Labs Results Past 24 Hours Test 12/08/16 20:37 12/08/16 20:55 12/08/16 21:05 12/08/16 23:16 Range/Units White Blood Count 15.33 4.8-10.8 K/uL Red Blood Count 5.13 4.2-5.4 M/uL Hemoglobin 16.4 12.0-16.0 g/dL Hematocrit 47.2 37-47 % Mean Corpuscular Volume 92.0 80-100 fL Mean Corpuscular Hemoglobin 32.0 25-34 pg Mean Corpuscular Hemoglobin Concent 34.7 32-36 g/dl Platelet Count 249 130-400 K/uL Mean Platelet Volume 9.9 7.4-10.4 fL Neutrophils (%) (Auto) 85.4 % Lymphocytes (%) (Auto) 7.0 % Monocytes (%) (Auto) 6.1 % Eosinophils (%) (Auto) 1.1 % Basophils (%) (Auto) 0.1 % Neutrophils # (Auto) 13.10 1.4-6.5 K/uL Lymphocytes # (Auto) 1.07 1.2-3.4 K/uL Monocytes # (Auto) 0.93 0.11-0.59 K/uL Eosinophils # (Auto) 0.17 0-0.5 K/uL Basophils # (Auto) 0.01 0-0.2 K/uL RDW Standard Deviation 44.9 36.4-46.3 fL RDW Coefficient of Variation 13.3 11.5-14.5 % Immature Granulocyte % (Auto) 0.3 % Immature Granulocyte # (Auto) 0.05 0.00-0.02 K/uL Prothrombin Time 11.5 9.0-12.0 SECONDS Prothromb Time International Ratio 1.1 0.9-1.1 Activated Partial Thromboplast Time 25.9 21.0-31.0 SECONDS Partial Thromboplastin Ratio 1.0 Sodium Level 135 136-145 mmol/L Potassium Level 3.0 3.5-5.1 mmol/L Chloride Level 97 98-107 mmol/L Carbon Dioxide Level 25 21-32 mmol/L Anion Gap 13.0 3-11 mmol/L Blood Urea Nitrogen 8 7-18 mg/dl Creatinine 0.93 0.60-1.20 mg/dl Est Creatinine Clear Calc Drug Dose 48.8 ml/min Estimated GFR () 71.2 Estimated GFR (Non- 61.4 BUN/Creatinine Ratio 8.8 10-20 Random Glucose 123 70-99 mg/dl Calcium Level 9.7 8.5-10.1 mg/dl Total Bilirubin 0.6 0.2-1 mg/dl Direct Bilirubin 0.2 0-0.2 mg/dl Aspartate Amino Transf (AST/SGOT) 30 15-37 U/L Alanine Aminotransferase (ALT/SGPT) 56 12-78 U/L Alkaline Phosphatase 56 45-117 U/L Total Creatine Kinase 69 26-192 U/L Creatine Kinase MB < 0.5 0.5-3.6 ng/ml Creatine Kinase MB Ratio 0-3.0 Troponin I < 0.015 0-0.045 ng/ml Total Protein 8.5 6.4-8.2 gm/dl Albumin 3.9 3.4-5.0 gm/dl Urine Color YELLOW Urine Appearance CLEAR CLEAR Urine pH 7.5 4.5-7.5 Urine Specific [place] 1.005 1.000-1.030 Urine Protein NEG NEG Urine Glucose (UA) NEG NEG Urine Ketones NEG NEG Urine Occult Blood NEG NEG Urine Nitrite NEG NEG Urine Bilirubin NEG NEG Urine Urobilinogen NEG NEG Urine Leukocyte Esterase NEG NEG Urine WBC (Auto) 1-5 0-5 /hpf Urine RBC (Auto) 0-4 0-4 /hpf Urine Hyaline Casts (Auto) 0 0-5 /lpf Urine Epithelial Cells (Auto) 0-5 0-5 /lpf Urine Bacteria (Auto) NEG NEG Influenza Type A Antigen Neg for Influ A NEG Influenza Type B Antigen Neg for Influ B NEG Lactic Acid Level 2.4 0.4-2.0 mmol/L Pro-B-Type Natriuretic Peptide 191 0-900 pg/ml Procalcitonin 0.13 0-0.5 ng/mL Test 12/09/16 05:15 12/09/16 06:55 12/09/16 10:59 12/09/16 11:20 Range/Units White Blood Count 13.98 4.8-10.8 K/uL Red Blood Count 4.62 4.2-5.4 M/uL Hemoglobin 14.6 12.0-16.0 g/dL Hematocrit 41.9 37-47 % Mean Corpuscular Volume 90.7 80-100 fL Mean Corpuscular Hemoglobin 31.6 25-34 pg Mean Corpuscular Hemoglobin Concent 34.8 32-36 g/dl RDW Standard Deviation 44.6 36.4-46.3 fL RDW Coefficient of Variation 13.5 11.5-14.5 % Platelet Count 204 130-400 K/uL Mean Platelet Volume 9.6 7.4-10.4 fL Sodium Level 135 136-145 mmol/L Potassium Level 3.6 3.5-5.1 mmol/L Chloride Level 100 98-107 mmol/L Carbon Dioxide Level 23 21-32 mmol/L Anion Gap 12.0 3-11 mmol/L Blood Urea Nitrogen 7 7-18 mg/dl Creatinine 0.84 0.60-1.20 mg/dl Est Creatinine Clear Calc Drug Dose 54.0 ml/min Estimated GFR () 80.5 Estimated GFR (Non- 69.4 BUN/Creatinine Ratio 8.7 10-20 Random Glucose 168 70-99 mg/dl Estimated Average Glucose 123 mg/dl Hemoglobin A1c 5.9 4.5-5.6 % Lactic Acid Level 1.2 0.4-2.0 mmol/L Calcium Level 9.2 8.5-10.1 mg/dl Magnesium Level 1.5 1.8-2.4 mg/dl Total Bilirubin 0.6 0.2-1 mg/dl Aspartate Amino Transf (AST/SGOT) 21 15-37 U/L Alanine Aminotransferase (ALT/SGPT) 43 12-78 U/L Alkaline Phosphatase 44 45-117 U/L Troponin I < 0.015 0-0.045 ng/ml Total Protein 7.2 6.4-8.2 gm/dl Albumin 3.2 3.4-5.0 gm/dl Globulin 4.0 2.5-4.0 gm/dl Albumin/Globulin Ratio 0.8 0.9-2 Bedside Glucose 195 290 70-90 mg/dl Influenza Type A (RT-PCR) Neg for Influ A NEG Influenza Type B (RT-PCR) Neg for Influ B NEG Test 12/09/16 14:35 Range/Units Microbiology Results 12/08/16 Blood Culture, Received Pending 12/08/16 Blood Culture, Received Pending Diagnostic Radiology CHEST ONE VIEW PORTABLE//COMPARISON STUDY: 10/11/2016 1. Mild interstitial infiltrate left base superimposed upon 2. mild chronic interstitial change 3. Very slight blunting left lateral costophrenic angle 4. Minimal right basilar atelectatic change CHEST CTA for PULMONARY ARTERIEs//COMPARISON STUDY: 10/11/2016 and CTA from 1. No evidence for pulmonary embolus. 2. Findings of mild and/or developing congestive heart failure. 3. Small bilateral pleural effusions. 4. Pulmonary nodularity slightly progressive compared to the prior study 5. Bilateral nodules largest in the RML 9.5mm increased in size from 6.mm in 07/11 EKG EKG: Sinus-tachy 120/old ST changes Impression Assessment and Plan 71-year-old female admitted with chronic cough and productive dyspnea on exertion: #1 cough: Patient has had a cough for the last 3-4 months which be noted/ defined is chronic in nature. Patient has no history of asthma as child or in her early admitted all years. Her pulmonary function tests on 11/27/2016 showed no signs of asthma. 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 Also believe she is at risk for pertussis as her grandchild did have whooping cough. At this time her cough is more likely multifactorial with diastolic heart failure, GERD, laryngeal pharyngeal reflux and possible whooping cough. I will send off for pertussis titers at this time and have spoken to the patient and about modifying her diet. We should also continue her current PPI. #2 DVT: Patient has superficial veins on her right lower extremity she notes since giving to her 5 kids. It does seem to be mildly enlarged as compared to the left. At this time we'll repeat DVT studies for evaluation. #3 pulmonary nodules: Patient is been worked up for multiple years/followed for pulmonary nodules. We will require the patient's previous CT scans be moved over to our system for comparison.
[2016-12-09 16:49] LABS: MAGNESIUM 2.4 mg/dl (1.8-2.4); POTASSIUM 3.7 mmol/L (3.5-5.1)
--- NOTE | 2016-12-09 16:59 | DIAGNOSTIC IMAGING REPORT ---
ULTRASOUND VENOUS DOPPLER LWR EXT BILA CLINICAL HISTORY: Chest pain, dyspnea. Possible pulmonary embolism. History of prior DVT. COMPARISON STUDY: 06/08/2012 FINDINGS: Real-time and color flow Doppler imaging were performed. Flow was seen within the femoral, popliteal and calf veins with no acute there is minor stranding within the left common femoral or femoral veins. This is felt to be chronic. Intraluminal thrombus demonstrated. The saphenous vein is patent. IMPRESSION: 1. No evidence of acute lower extremity DVT 2. Minor chronic fibrin stranding within the left common femoral and femoral veins. Electronically signed by: Keven Duke M.D. 12/09/2016 4:58 PM Dictated Date/Time: 12/09/2016 4:56 PM
[2016-12-09] MEDS: CEFDINIR 125 MG/5 ML 60 ML BTL PO SCH (19:51)
[2016-12-09] MEDS ORDERED: METHYLPREDNISOLONE IV 20 MG in SYRINGE 0 ML IV ONE (20:00)
[2016-12-09] MEDS ORDERED: INSULIN GLARGINE SOLOSTAR 100 UNITS/ML 3 ML PEN SC SCH (21:00)
[2016-12-09] MEDS ORDERED: AZITHROMYCIN 250 MG TAB PO SCH (21:00)
[2016-12-09] MEDS: DOCUSATE SODIUM 100 MG CAP PO SCH (21:15)
[2016-12-09] MEDS: MAGNESIUM OXIDE 400 MG TAB PO SCH (21:16)
[2016-12-09] MEDS: BENZONATATE 100MG CAP PO SCH (21:16)
--- NOTE | 2016-12-09 21:16 | Progress Note ---
Medicine Progress Note Date & Time of Visit: Dec 09, 2016 at 14:44. Subjective 71y/o female presented to the ER with complaints of increased SOB starting the day prior to admission. She was treated as an outpatient with a nebulizer which gave her minimal relief. Here SOD/dyspnea was made worse with any type of exertion including talking. She is being worked up over the last 3-4 months for the progressive dyspnea on exertion as well as coughing. She has had a echocardiogram as well as pulmonary function tests performed. She is also been treated for 3 episodes a urinary tract infection during the last 2-3 months as well. She was also sent to ENT Dr. Bin Moraes and was diagnosed with gastroesophageal reflux disease adding to her chronic cough. Lasix 20mg IV today with good response--patient voided 4 missed voids per nurse Redosed again tonight Cards consult requested by the patient RV dysfunction on TTE today Pulm saw her and agrees w diuresis Objective Last 8 Hrs Date Time Temp Pulse Resp B/P Pulse Ox O2 Delivery O2 Flow Rate FiO2 12/09/16 12:00 91 Room Air 12/09/16 11:30 36.6 92 16 104/73 91 Room Air 12/09/16 11:23 92 20 91 Nasal Cannula 1.0 12/09/16 08:00 92 Room Air 12/09/16 07:28 86 20 95 Nasal Cannula 1.0 12/09/16 07:20 36.6 85 16 108/73 95 2.0 Physical Exam: GEN: WNWD, in no acute distress, alert and appropriate, notably off oxygen at this time HEENT: NC/AT, normal sclerae CARDIO: reg rate, S1/2 heard without m/g/r, no JVD, no abdominal or LE swelling LUNGS: CTA bilaterally, crackles in LLL, rales or wheezes, good diaphragmatic excursion ABD: soft, non-tender, non-distended, no rebound or guarding EXTREMITY: RP and DP palpable 2+ bilat, no LE swelling or edema, extremities are warm and well-perfused NEURO: CN 2-12 intact, sensation intact throughout MUSC: moves around with min assist, no gross focal deficits SKIN: warm and dry Laboratory Results: Last 24 Hours Test 12/08/16 20:37 12/08/16 20:55 12/08/16 21:05 12/08/16 23:16 White Blood Count 15.33 K/uL Red Blood Count 5.13 M/uL Hemoglobin 16.4 g/dL Hematocrit 47.2 % Mean Corpuscular Volume 92.0 fL Mean Corpuscular Hemoglobin 32.0 pg Mean Corpuscular Hemoglobin Concent 34.7 g/dl Platelet Count 249 K/uL Mean Platelet Volume 9.9 fL Neutrophils (%) (Auto) 85.4 % Lymphocytes (%) (Auto) 7.0 % Monocytes (%) (Auto) 6.1 % Eosinophils (%) (Auto) 1.1 % Basophils (%) (Auto) 0.1 % Neutrophils # (Auto) 13.10 K/uL Lymphocytes # (Auto) 1.07 K/uL Monocytes # (Auto) 0.93 K/uL Eosinophils # (Auto) 0.17 K/uL Basophils # (Auto) 0.01 K/uL RDW Standard Deviation 44.9 fL RDW Coefficient of Variation 13.3 % Immature Granulocyte % (Auto) 0.3 % Immature Granulocyte # (Auto) 0.05 K/uL Prothrombin Time 11.5 SECONDS Prothromb Time International Ratio 1.1 Activated Partial Thromboplast Time 25.9 SECONDS Partial Thromboplastin Ratio 1.0 Sodium Level 135 mmol/L Potassium Level 3.0 mmol/L Chloride Level 97 mmol/L Carbon Dioxide Level 25 mmol/L Anion Gap 13.0 mmol/L Blood Urea Nitrogen 8 mg/dl Creatinine 0.93 mg/dl Est Creatinine Clear Calc Drug Dose 48.8 ml/min Estimated GFR () 71.2 Estimated GFR (Non- 61.4 BUN/Creatinine Ratio 8.8 Random Glucose 123 mg/dl Calcium Level 9.7 mg/dl Total Bilirubin 0.6 mg/dl Direct Bilirubin 0.2 mg/dl Aspartate Amino Transf (AST/SGOT) 30 U/L Alanine Aminotransferase (ALT/SGPT) 56 U/L Alkaline Phosphatase 56 U/L Total Creatine Kinase 69 U/L Creatine Kinase MB < 0.5 ng/ml Creatine Kinase MB Ratio Troponin I < 0.015 ng/ml Total Protein 8.5 gm/dl Albumin 3.9 gm/dl Urine Color YELLOW Urine Appearance CLEAR Urine pH 7.5 Urine Specific [place] 1.005 Urine Protein NEG Urine Glucose (UA) NEG Urine Ketones NEG Urine Occult Blood NEG Urine Nitrite NEG Urine Bilirubin NEG Urine Urobilinogen NEG Urine Leukocyte Esterase NEG Urine WBC (Auto) 1-5 /hpf Urine RBC (Auto) 0-4 /hpf Urine Hyaline Casts (Auto) 0 /lpf Urine Epithelial Cells (Auto) 0-5 /lpf Urine Bacteria (Auto) NEG Influenza Type A Antigen Neg for Influ A Influenza Type B Antigen Neg for Influ B Lactic Acid Level 2.4 mmol/L Pro-B-Type Natriuretic Peptide 191 pg/ml Procalcitonin 0.13 ng/mL Test 12/09/16 05:15 12/09/16 06:55 12/09/16 10:59 12/09/16 11:20 White Blood Count 13.98 K/uL Red Blood Count 4.62 M/uL Hemoglobin 14.6 g/dL Hematocrit 41.9 % Mean Corpuscular Volume 90.7 fL Mean Corpuscular Hemoglobin 31.6 pg Mean Corpuscular Hemoglobin Concent 34.8 g/dl RDW Standard Deviation 44.6 fL RDW Coefficient of Variation 13.5 % Platelet Count 204 K/uL Mean Platelet Volume 9.6 fL Sodium Level 135 mmol/L Potassium Level 3.6 mmol/L Chloride Level 100 mmol/L Carbon Dioxide Level 23 mmol/L Anion Gap 12.0 mmol/L Blood Urea Nitrogen 7 mg/dl Creatinine 0.84 mg/dl Est Creatinine Clear Calc Drug Dose 54.0 ml/min Estimated GFR () 80.5 Estimated GFR (Non- 69.4 BUN/Creatinine Ratio 8.7 Random Glucose 168 mg/dl Estimated Average Glucose 123 mg/dl Hemoglobin A1c 5.9 % Lactic Acid Level 1.2 mmol/L Calcium Level 9.2 mg/dl Magnesium Level 1.5 mg/dl Total Bilirubin 0.6 mg/dl Aspartate Amino Transf (AST/SGOT) 21 U/L Alanine Aminotransferase (ALT/SGPT) 43 U/L Alkaline Phosphatase 44 U/L Troponin I < 0.015 ng/ml Total Protein 7.2 gm/dl Albumin 3.2 gm/dl Globulin 4.0 gm/dl Albumin/Globulin Ratio 0.8 Bedside Glucose 195 mg/dl 290 mg/dl Influenza Type A (RT-PCR) Neg for Influ A Influenza Type B (RT-PCR) Neg for Influ B Test 12/09/16 14:35 Date/Time Source Procedure Growth Status 12/08/16 20:45 Blood Blood Culture Pending Received 12/08/16 20:37 Blood Blood Culture Pending Received Assessment & Plan 1. Dyspnea and cough 2/2 LLL community-acquired pneumonia, acute diastolic heart failure and LPR : Patient has had a cough for the last 10 years, worse in last 3-4 months. Her pulmonary function tests on 11/27/2016 showed no signs of asthma. Infiltrate seen on xray. Per pulm cough is multifactorial 2/2 diastolic heart failure (pulm edema on CT), GERD, laryngeal reflux and possibly pertussis all worsened in the setting of infection. Pertussis titers sent off. Patient was continued on abx (IV Zosyn changed to cefdinir/azithro on 12/09-- avoiding FQ bc of allergy) for 7 days total. Cont diuresis efforts with RV dysfunction. Cards to see patient in am--requested by patient. Cont PPI. CTA negative for PE, Flu neg, blood and sputum cx pend. Consider Macrobid pulmonary toxicity, cont prednisone 40 PO for short course. Pulm following 2. Pericardial effusion-noted again on TTE today, not hemodynamically significant 3. Pulmonary nodules-pulm requesting old CTs for comparison 4. Superficial Veins-pulm requested repeat Doppler u/s of legs-study pending 5. Hypertension-cont losartan, hold triamterene/HCTZ 6. GERD-cont PPI 7. DMII-hold metformin, A1C 5.9, ISS coverage, stopped Lantus. May need to be re-added if sugar increases from the steroids VTE PROPHYLAXIS Moderate-high risk for VTE. SQ enoxaparin. RESUSCITATION STATUS Discussed with patient on admission She has a living will. She would like resuscitation attempted in the event of a cardiopulmonary arrest if there is a reasonable chance of a meaningful recovery, but does not want prolonged extraordinary measures if prognosis is poor. Therefore, code status = "Level 1" (full resuscitation). Rita Méndez DO [facility] Hospitalist Current Inpatient Medications: Current Inpatient Medications Medications (Trade) Dose Ordered Sig/Guillermo Route Start Time Stop Time Status Last Admin Dose Admin Ioversol (Optiray 320) 100 ml UD PRN IV 12/08/16 21:30 12/12/16 21:29 Enoxaparin Sodium (Lovenox Inj) 40 mg DAILY SC 12/09/16 09:00 01/08/17 08:59 12/09/16 09:00 40 MG Acetaminophen (Tylenol Tab) 650 mg Q4H PRN PO 12/09/16 00:30 01/08/17 00:29 12/09/16 01:57 650 MG Ipratropium [place] (Atrovent 0.02% 0.5MG/2.5ML Neb) 0.5 mg QIDR INH 12/09/16 08:00 01/08/17 07:59 12/09/16 11:23 0.5 MG Levalbuterol (Xopenex 1.25MG/ 0.5ML Neb) 1.25 mg QIDR INH 12/09/16 08:00 01/08/17 07:59 12/09/16 11:23 1.25 MG Levalbuterol (Xopenex 0.63 Mg/ 3 Ml Neb) 0.63 mg Q2H PRN INH 12/09/16 01:45 01/08/17 01:44 Azithromycin 500 mg 500 mg HS PO 12/09/16 21:00 12/16/16 20:59 Piperacillin Sod/ Tazobactam Sod/ Dextrose (Zosyn Iv/D5 100ml) 115 ml @ 28.75 mls/ hr Q8H IV 12/09/16 06:30 12/16/16 06:29 12/09/16 14:28 28.75 MLS/HR Piperacillin Sod/ Tazobactam Sod (Consult) 1 ea UD PRN N/A 12/09/16 02:30 01/08/17 02:29 Fluticasone Propionate (Flovent Hfa 220MCG Inhaler) 2 puffs BID INH 12/09/16 09:00 01/08/17 08:59 12/09/16 08:35 2 PUFFS Loratadine (Claritin Tab) 10 mg DAILY PO 12/09/16 09:00 01/08/17 08:59 12/09/16 08:36 10 MG Losartan Potassium (coZAAR TAB) 50 mg DAILY PO 12/09/16 09:00 12/09/16 08:35 50 MG Magnesium Oxide (Mag-Ox Tab) 400 mg DAILY PO 12/09/16 09:00 01/08/17 08:59 12/09/16 08:36 400 MG Pantoprazole Sodium 40 mg 40 mg BID PO 12/09/16 09:00 01/08/17 08:59 12/09/16 08:36 40 MG Magnesium Sulfate 1 gm/Prmx 100 ml @ 100 mls/hr Q1H IV 12/09/16 10:30 12/09/16 12:29 12/09/16 12:12 100 MLS/HR Furosemide/Syringe (Lasix Inj/ Syringe) 2 ml @ 4 mls/min NOW ONCE IV 12/09/16 13:00 12/09/16 13:01 12/09/16 13:05 4 MLS/MIN Potassium Chloride 20 meq 20 meq NOW ONCE PO 12/09/16 13:00 12/09/16 13:01 12/09/16 13:07 20 MEQ Methylprednisolone Sodium Succinate/ Syringe (Solu-Medrol IV/ Syringe) 0.32 ml @ 1.5 mls/min TODAY@1999 ONCE IV 12/09/16 20:00 12/09/16 20:01 Prednisone (PredniSONE TAB) 40 mg DAILY PO 12/10/16 09:00 01/09/17 08:59 Insulin Aspart (novoLOG ASPART) SLIDING SCALE G... ACHS SC 12/09/16 11:00 01/08/17 10:59 12/09/16 13:14 4 UNITS Insulin Glargine (Lantus Solostar Pen) 6 unit BID SC 12/09/16 21:00 01/08/17 20:59 Insulin Glargine (Lantus Solostar Pen) 6 unit 1300 ONCE SC 12/09/16 13:00 12/09/16 13:01 12/09/16 13:20 6 UNIT Magnesium Oxide (Mag-Ox Tab) 400 mg BID PO 12/09/16 21:00 01/08/17 20:59 Docusate Sodium (coLACE CAP) 100 mg BID PO 12/09/16 21:00 01/08/17 20:59 Polyethylene (Miralax Powder Packet) 17 gm DAILY PRN PO 12/09/16 12:45 01/08/17 12:44 Polyethylene (Miralax Powder Packet) 17 gm 1300 ONCE PO 12/09/16 13:00 12/09/16 13:01 12/09/16 13:09 17 GM
[2016-12-10] VITALS (12 sets, daily range): BP systolic 115–129; BP diastolic 68–87; PULSE 76–107; TEMP 36.6–36.9; O2SAT 91–99
[2016-12-10] MEDS: INSULIN ASPART 100 UNITS/ML 3 ML PEN SC SCH ×2 (07:00→11:00)
--- NOTE | 2016-12-10 07:00 | DIAGNOSTIC IMAGING REPORT ---
CHEST ONE VIEW PORTABLE CLINICAL HISTORY: cough, SOB dyspnea COMPARISON STUDY: 12/08/2016 FINDINGS: Unchanging poorly defined parenchymal infiltrate left base. This again is superimposed upon chronic interstitial as well as pulmonary vasculature prominence. IMPRESSION: Unchanging poorly defined parenchymal infiltrate left base. Unchanging pulmonary vascular congestion Electronically signed by: Darian Crowe M.D. 12/10/2016 6:59 AM Dictated Date/Time: 12/10/2016 6:58 AM
[2016-12-10] MEDS: IPRATROPIUM BROMIDE NEB SOLN 0.02% 2.5 ML VIAL INH SCH ×3 (07:30→15:12)
[2016-12-10] MEDS: LEVALBUTEROL 1.25MG/0.5ML NEB INH SCH ×3 (07:30→15:12)
[2016-12-10] MEDS: PANTOprazole SOD 40 MG TAB PO SCH (08:44)
[2016-12-10] MEDS: MAGNESIUM OXIDE 400 MG TAB PO SCH (08:44)
[2016-12-10] MEDS: DOCUSATE SODIUM 100 MG CAP PO SCH (08:45)
[2016-12-10] MEDS: BENZONATATE 100MG CAP PO SCH ×2 (08:45→15:14)
[2016-12-10] MEDS: LORATADINE 10 MG TAB PO SCH (08:46)
[2016-12-10] MEDS: FLUTICASONE HFA 220 MCG INHALER INH SCH (08:46)
[2016-12-10] MEDS: CEFDINIR 125 MG/5 ML 60 ML BTL PO SCH (08:46)
[2016-12-10] MEDS: ENOXAPARIN 40 MG/0.4 ML SYR SC SCH (08:47)
[2016-12-10 08:59] LABS: MEAN CELL VOLUME 89.5 fL (80-100); MEAN CORPUSCULAR HEMOGLOBIN 31.2 pg (25-34); MEAN CORPUSCULAR HGB CONC 34.9 g/dl (32-36); MEAN PLATELET VOLUME 9.6 fL (7.4-10.4); PLATELET COUNT 234 K/uL (130-400); RED BLOOD COUNT 4.58 M/uL (4.2-5.4); WHITE BLOOD COUNT 16.71 K/uL (4.8-10.8)
[2016-12-10] MEDS ORDERED: FUROSEMIDE 40 MG TAB PO SCH (09:00)
[2016-12-10 09:34] LABS: CREATININE 0.84 mg/dl (0.60-1.20); MAGNESIUM 2.1 mg/dl (1.8-2.4)
[2016-12-10 09:36] LABS: ALB/GLOB RATIO 0.7 (0.9-2)
--- NOTE | 2016-12-10 09:45 | Pulmonology Progress Note ---
Pulmonary Progress Note Date of Service Dec 10, 2016. Attending David Brian Subjective Patient notes much improvement of her respiratory status over the last 24 hours Objective Patient doing well today showing no signs of increased work of breathing: Vital signs: Reviewed notably stable on room air Respiratory: Continued bilateral lower lobe posterior subsegment crackles minimal expiratory wheezing Cardiac: S1-S2 regular rate rhythm no murmurs rubs or gallops Extremities: No dependent edema noted Radiology: #1 chest x-ray: Continued hilar fullness, parabronchial cuffing, cephalization bilateral #2 DVT study: No signs of acute or chronic DVT but notable chronic fibrin stranding Assessment & Plan 71-year-old female admitted with chronic cough, progressive dyspnea on exertion and history of DVT: #1 chronic cough: Patient is a high likelihood of chronic cough secondary to GERD and laryngeal pharyngeal reflux and possible asthma: GERD: Continue antireflux medication Laryngeal pharyngeal reflux: I spoken to the patient and about nutritional habits Asthma: Low likelihood of asthma as she was diagnosed in her 60s higher probability of GERD/laryngeal pharyngeal reflux. Will continue current outpatient medical regimen: Flovent, Claritin and nebulizers Also suggest we taper her steroids over the next 10 days Follow-up: Patient will require follow-up at the [place] in the 2 weeks following discharge #2 pulmonary nodules: It would be most helpful if patient's previous CAT scans removed from the [employer] mobile system into the [employer] system so they can be reviewed. Does appear via the patient and that her pulmonary nodules of been followed for multiple years. 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 At this time no medical/drug interaction is warranted. This is mostly dealt with by physical activity and at times external compression devices. Data Medications: Current Inpatient Medications Medications (Trade) Dose Ordered Sig/Guillermo Route Start Time Stop Time Status Last Admin Dose Admin Ioversol (Optiray 320) 100 ml UD PRN IV 12/08/16 21:30 12/12/16 21:29 Enoxaparin Sodium (Lovenox Inj) 40 mg DAILY SC 12/09/16 09:00 01/08/17 08:59 12/10/16 08:47 40 MG Acetaminophen (Tylenol Tab) 650 mg Q4H PRN PO 12/09/16 00:30 01/08/17 00:29 12/09/16 01:57 650 MG Ipratropium [place] (Atrovent 0.02% 0.5MG/2.5ML Neb) 0.5 mg QIDR INH 12/09/16 08:00 01/08/17 07:59 12/10/16 07:30 0.5 MG Levalbuterol (Xopenex 1.25MG/ 0.5ML Neb) 1.25 mg QIDR INH 12/09/16 08:00 01/08/17 07:59 12/10/16 07:30 1.25 MG Levalbuterol (Xopenex 0.63 Mg/ 3 Ml Neb) 0.63 mg Q2H PRN INH 12/09/16 01:45 01/08/17 01:44 Azithromycin (Zithromax Tab) 500 mg HS PO 12/09/16 21:00 12/16/16 20:59 12/09/16 21:17 500 MG Fluticasone Propionate (Flovent Hfa 220MCG Inhaler) 2 puffs BID INH 12/09/16 09:00 01/08/17 08:59 12/10/16 08:46 2 PUFFS Loratadine (Claritin Tab) 10 mg DAILY PO 12/09/16 09:00 01/08/17 08:59 12/10/16 08:46 10 MG Losartan Potassium (coZAAR TAB) 50 mg DAILY PO 12/09/16 09:00 Future Hold 12/09/16 08:35 50 MG Pantoprazole Sodium (Protonix Tab) 40 mg BID PO 12/09/16 09:00 01/08/17 08:59 12/10/16 08:44 40 MG Prednisone (PredniSONE TAB) 40 mg DAILY PO 12/10/16 09:00 01/09/17 08:59 12/10/16 08:45 40 MG Insulin Aspart (novoLOG ASPART) SLIDING SCALE G... ACHS SC 12/09/16 11:00 01/08/17 10:59 12/09/16 13:14 4 UNITS Magnesium Oxide (Mag-Ox Tab) 400 mg BID PO 12/09/16 21:00 01/08/17 20:59 12/10/16 08:44 400 MG Docusate Sodium (coLACE CAP) 100 mg BID PO 12/09/16 21:00 01/08/17 20:59 12/10/16 08:45 100 MG Polyethylene (Miralax Powder Packet) 17 gm DAILY PRN PO 12/09/16 12:45 01/08/17 12:44 Benzonatate (Tessalon Perles Cap) 100 mg TID PO 12/09/16 21:00 01/08/17 20:59 12/10/16 08:45 100 MG Cefdinir (Omnicef Susp) 300 mg Q12 PO 12/09/16 19:45 12/16/16 19:44 12/10/16 08:46 300 MG Furosemide (Lasix Tab) 40 mg BID17 PO 12/10/16 09:00 01/09/17 08:59 12/10/16 08:44 40 MG I & O: 24-Hour Column 12/10/16 08:00 Intake Total 1432 ml Output Total 1250 ml Balance 182 ml Vital Signs: Date Time Temp Pulse Resp B/P Pulse Ox O2 Delivery O2 Flow Rate FiO2 12/10/16 08:00 Room Air 12/10/16 07:30 90 16 92 Room Air 12/10/16 07:14 36.9 76 18 129/87 99 12/10/16 04:00 94 Room Air 12/10/16 02:55 36.6 90 16 117/77 94 Room Air 12/10/16 00:00 91 Room Air 12/09/16 23:22 36.6 98 17 125/83 91 Room Air 12/09/16 20:00 92 Room Air 12/09/16 19:46 36.4 101 16 98/63 92 Room Air 12/09/16 19:08 90 16 93 Room Air 12/09/16 16:15 96 Room Air 12/09/16 16:04 36.4 108 16 95/64 96 12/09/16 16:02 98 16 96 Room Air 12/09/16 12:00 91 Room Air 12/09/16 11:30 36.6 92 16 104/73 91 Room Air 12/09/16 11:23 92 20 91 Nasal Cannula 1.0 Laboratory Results: Last 24 Hours Test 12/09/16 10:59 12/09/16 11:20 12/09/16 14:35 12/09/16 16:20 Bedside Glucose 290 mg/dl Influenza Type A (RT-PCR) Neg for Influ A Influenza Type B (RT-PCR) Neg for Influ B Potassium Level 3.7 mmol/L Magnesium Level 2.4 mg/dl Test 12/09/16 16:24 12/09/16 17:55 12/09/16 20:35 12/10/16 06:45 Bedside Glucose 185 mg/dl 158 mg/dl 122 mg/dl Test 12/10/16 08:50 White Blood Count 16.71 K/uL Red Blood Count 4.58 M/uL Hemoglobin 14.3 g/dL Hematocrit 41.0 % Mean Corpuscular Volume 89.5 fL Mean Corpuscular Hemoglobin 31.2 pg Mean Corpuscular Hemoglobin Concent 34.9 g/dl RDW Standard Deviation 44.1 fL RDW Coefficient of Variation 13.5 % Platelet Count 234 K/uL Mean Platelet Volume 9.6 fL
--- NOTE | 2016-12-10 10:47 | Hospitalist Progress Note ---
Hospitalist Progress Note Date of Service Dec 10, 2016. Subjective Patient seen and examined. Reports she is feeling better each day. Cough and dyspnea on exertion persist however are improving. Continues to diuresis well. No chest pain, lightheadedness, or dizziness. Denies abdominal pain, nausea, diarrhea. No fever or chills. Objective Vital Signs Date Time Temp Pulse Resp B/P Pulse Ox O2 Delivery O2 Flow Rate FiO2 12/10/16 08:00 Room Air 12/10/16 07:30 90 16 92 Room Air 12/10/16 07:14 36.9 76 18 129/87 99 12/10/16 04:00 94 Room Air 12/10/16 02:55 36.6 90 16 117/77 94 Room Air 12/10/16 00:00 91 Room Air 12/09/16 23:22 36.6 98 17 125/83 91 Room Air 12/09/16 20:00 92 Room Air 12/09/16 19:46 36.4 101 16 98/63 92 Room Air 12/09/16 19:08 90 16 93 Room Air 12/09/16 16:15 96 Room Air 12/09/16 16:04 36.4 108 16 95/64 96 12/09/16 16:02 98 16 96 Room Air 12/09/16 12:00 91 Room Air 12/09/16 11:30 36.6 92 16 104/73 91 Room Air 12/09/16 11:23 92 20 91 Nasal Cannula 1.0 Physical Exam General Appearance: no apparent distress Eyes: normal inspection ENT: hearing grossly normal Neck: supple, no JVD Respiratory/Chest: + crackles (faint, left base) Cardiovascular: regular rate, rhythm, no edema Abdomen: normal bowel sounds, non tender, soft Neurologic/Psychiatric: no motor/sensory deficits, alert, normal mood/affect, oriented x 3 Skin: normal color, warm/dry Laboratory Results Last 24 Hours Test 12/09/16 10:59 12/09/16 11:20 12/09/16 14:35 12/09/16 16:20 Bedside Glucose 290 mg/dl Influenza Type A (RT-PCR) Neg for Influ A Influenza Type B (RT-PCR) Neg for Influ B Potassium Level 3.7 mmol/L Magnesium Level 2.4 mg/dl Test 12/09/16 16:24 12/09/16 17:55 12/09/16 20:35 12/10/16 06:45 Bedside Glucose 185 mg/dl 158 mg/dl 122 mg/dl Test 12/10/16 08:50 White Blood Count 16.71 K/uL Red Blood Count 4.58 M/uL Hemoglobin 14.3 g/dL Hematocrit 41.0 % Mean Corpuscular Volume 89.5 fL Mean Corpuscular Hemoglobin 31.2 pg Mean Corpuscular Hemoglobin Concent 34.9 g/dl RDW Standard Deviation 44.1 fL RDW Coefficient of Variation 13.5 % Platelet Count 234 K/uL Mean Platelet Volume 9.6 fL Sodium Level 135 mmol/L Potassium Level 4.0 mmol/L Chloride Level 101 mmol/L Carbon Dioxide Level 22 mmol/L Anion Gap 12.0 mmol/L Creatinine 0.84 mg/dl Est Creatinine Clear Calc Drug Dose 53.5 ml/min Estimated GFR () 80.5 Estimated GFR (Non- 69.4 BUN/Creatinine Ratio 16.0 Random Glucose 171 mg/dl Calcium Level 9.0 mg/dl Magnesium Level 2.1 mg/dl Total Bilirubin 0.3 mg/dl Aspartate Amino Transf (AST/SGOT) 15 U/L Alanine Aminotransferase (ALT/SGPT) 39 U/L Alkaline Phosphatase 43 U/L Total Protein 7.7 gm/dl Albumin 3.3 gm/dl Globulin 4.4 gm/dl Albumin/Globulin Ratio 0.7 Procalcitonin 0.10 ng/mL Assessment and Plan DYSPNEA/COUGH - LIKELY MULTIFACTORIAL DUE TO: LLL CAP, ACUTE DIASTOLIC CHF, LARYNGEAL PHARYNGEAL REFLUX - patient presenting with worsening of chronic cough and dyspnea over the past 3 -4 months - CTA negative for PE, negative influenza, blood cultures negative, sputum culture pending - had PFTs 11/27/16 that did not show any signs of asthma - CXR on admission show LLL infiltrate; initially place on azithromycin/zosyn - changed to cefdinir/azithromycin 12/09 to complete 7 day course - 12/10 - will change azithromycin to Doxycycline due to prolonged QTC - leukocytosis likely steroid induced, has remained afebrile - CT showed mild CHF - echo - EF > 70%, grade I diastolic dysfunction - received Lasix 20mg IV x 2 on 12/09, transitioned to Lasix 40mg PO BID today - cardio consult placed, appreciate input - pulmonary on board, input appreciated - continue current outpatient medical regimen: Flovent, Claritin and nebulizers - patient will require follow-up at the [facility] in the 2 weeks following discharge - continue PPI - also being treated with PO prednisone - pulmonary recommending 10 day taper - consider Macrobid pulmonary toxicity PERICARDIAL EFFUSION - noted on TTE - not hemodynamically significant PULMONARY NODULES - outpatient follow up with pulmonary SUPERFICIAL VEINS - repeat DVT study consistent with post-thrombotic syndrome - no medical/drug therapy indicated HTN - BP controlled - continue losartan, holding triamtrene/HCTZ while diuresing GERD - PPI DM TYPE II - holding metformin, utilizing SSI while hospitalized - sugars controlled DVT PROPHYLAXIS - SQ Lovenox CODE STATUS - Full Code as per discussion on admission
[2016-12-10] MEDS ORDERED: DOXYCYCLINE HYCLATE 100 MG CAP PO SCH (14:00)
--- NOTE | 2016-12-10 14:36 | CARDIOLOGY CONSULTATION ---
DATE OF CONSULTATION: 12/10/2016 REFERRING: Dr. Méndez. PRIMARY CARE PHYSICIAN: Dr. Andersen. INDICATIONS: Cough, shortness of breath and possible diastolic heart failure. HISTORY OF PRESENT ILLNESS: The patient is a complex 71-year-old female who per her own description carries a history of longstanding cough and intermittent shortness of breath of 10 years duration. Her past medical history is notable for prior DVT but no history of cardiac disease or cardiac structural abnormalities. 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 The patient noted worsening symptoms of cough and shortness of breath over the last several weeks to months though with intermittent chronic cough. Symptoms were felt to be exacerbated by acute pulmonary or sinus infection but evaluations have included ENT evaluation and pulmonary function testing as well as normal LV systolic function on echocardiogram with a small pericardial effusion. She was referred for hospitalization with worsening symptoms. During her hospital stay, she was treated with IV and oral diuretics with furosemide in addition to multiple other therapies. She did manifest diuresis. Per patient, pulmonary status has improved. Chest x-ray and CAT scan did suggest increased pulmonary vasculature. Echocardiogram done during admission demonstrates a very hyperdynamic LV function, EF greater than 70% with small LV cavity size, borderline enlarged right ventricle. She is referred now for further evaluation. She denies history of TIA or stroke. Notes no history of rheumatic fever, scarlet fever, renal or hepatic disease. Denies melena, hematochezia, dysuria or hematuria. Appetite and weight are generally stable. Notes she has orthopnea complaints due to cough when trying to lie flat. Symptoms still persist despite diuresis. Notes cough at times has been extremely vigorous and severe in nature and has resulted in lightheadedness when coughing very vigorously. She has been treated recently for pulmonary and urinary tract infections per her description. ALLERGIES: CIPRO, LISINOPRIL AND STATINS WITH STATINS RESULTING IN SEVERE MYALGIAS. MEDICATIONS: Prior to hospitalization were Ventolin inhaler, biotin 2.5 mg q. day, calcium, magnesium with vitamin D 1 tablet b.i.d., ferrous sulfate 325 mg p.o. q. day, Flovent, loratadine 10 mg p.o. q. day, losartan 50 mg p.o. q. day, Mag-Ox 400 mg p.o. q. day, metformin 500 mg b.i.d., Macrobid 100 mg b.i.d., omeprazole 20 mg b.i.d., Dyazide, triamterene/hydrochlorothiazide 37.5/25 one tablet q. day. PAST SURGICAL HISTORY: Notable for prior cholecystectomy, lumbar surgery, and past remote D\T\C. FAMILY HISTORY: Not specifically notable for cardiac disease. SOCIAL HISTORY: The patient resides outside of [place]. She is a lifelong nonsmoker, uses no significant alcoholic beverages. She is modestly active about her home. PHYSICAL EXAMINATION: VITAL SIGNS: Heart rate is 80, blood pressure is 128/82. HEENT: Normocephalic and atraumatic. Nares without discharge. Throat was clear. NECK: Supple without thyromegaly, lymphadenopathy, JVD. There is no jugular venous distention or hepatojugular reflux at 30 degrees. LUNGS: Reveal mildly diminished breath sounds but predominantly clear. Cough results in upper airway sounds only. CARDIOVASCULAR: Regular with normal S1, S2. There is no murmur, gallop or rub. ABDOMEN: Soft, nontender. There is no palpable hepatosplenomegaly. There is no hepatojugular reflux. EXTREMITIES: Without cyanosis or clubbing. There is no peripheral edema. There are mild superficial varicosities. There are intact distal pulses at 2+/4. NEUROLOGIC: The patient is answering questions appropriately. LABORATORY DATA: Reviewed. Laboratory studies on presentation revealed hypokalemia with potassium of 3.0, mild elevation of glucose, normal CK-MB and troponins and BNP of 191. Chest x-ray reveals increased interstitial markings. CT scan per report revealed no pulmonary emboli, possible small bilateral pleural effusions. Venous Doppler study revealed no deep venous thromboses with minor chronic changes. Echocardiogram reveals a small mildly hypertrophied left ventricle, EF greater than 70%, grade 1 diastolic dysfunction. Serologies are negative for flu. Today, sodium is 135, potassium is 4.0, chloride is 101, bicarb is 22, BUN is 13, creatinine 0.84, albumin level is 3.3. EKGs reveal old isolated Q-waves in lead 3, poor R-wave progression across the anterior precordial leads without evolution throughout hospitalization. Similar findings are found on EKGs dating back to 2010. IMPRESSION: A 71-year-old female who presented with worsening shortness of breath and cough with cough of multiple years duration with acute exacerbation in the last month's time. Etiology appears to be multifactorial though concerns have been raised regarding gastroesophageal reflux and laryngeal spasm as possible source. She does carry a history of past Munguia esophagus though last endoscopy in 2012 revealed no presence. Echocardiogram demonstrates small left ventricle with hyperdynamic left ventricular function. There is no evidence to suggest acute coronary syndrome or left ventricular dysfunction to account for heart failure. A component of diastolic heart failure may have been present on presentation though certainly is not present on current examination and appears unlikely to account for patient's cough. Discussed findings in detail with the patient. As noted, given very rapid heart rate during acute illness when she initially presented, she may benefit from heart rate control with low dose beta huber, not noting if asthmatic issues are predominant with this complaint. This may be exacerbating issues. We would send patient home on low dose diuretic. Prior to hospitalization, she was on triamterene and hydrochlorothiazide. We would discharge on furosemide at 20 mg 5 days per week as well as spironolactone 25 mg per day. All studies were reviewed. Pericardial effusion is of nonhemodynamic significance on echocardiogram. Left ventricular systolic function is noted hyperdynamic and no overt ischemic changes or etiologies are concerning right now. Lipid studies will need to be addressed per primary care physician as an outpatient.
[2016-12-10] MEDS ORDERED: TPRSR25 PO (16:08)
[2016-12-10] MEDS ORDERED: CZR25 PO (16:08)
[2016-12-10] MEDS ORDERED: PRD10 PO ×2 (16:08→16:26)
[2016-12-10] MEDS ORDERED: FURO20TA PO (16:08)
[2016-12-10] MEDS ORDERED: SPIR25TA PO (16:08)
[2016-12-10] MEDS ORDERED: DXY100 PO (16:08)
[2016-12-10] MEDS ORDERED: CEFD300C2 PO (16:08)
--- NOTE | 2016-12-10 16:24 | Discharge Instructions ---
Discharge Instructions Admission Reason for Admission: Shortness of Breath Discharge Discharge Diagnosis / Problem: Pneumonia, Heart Failure, Gastric Reflux Discharge Goals Goal(s): Decrease discomfort, Improve function Activity Recommendations Activity Limitations: resume your previous activity . Instructions / Follow-Up Instructions / Follow-Up Follow up with Dr. Andersen FridayDecember 13 at 11:30AM Make an appointment to see Dr. Brian in the [place] office in 2 weeks - [phone] You came into the hospital for worsening shortness of breath and cough which was felt to be due to 3 things: pneumonia, heart failure, and gastric reflux Your chest xray showed you had pneumonia - you will need antibiotics for a total of 7 days; you received antibiotics while you were in the hospital and will need to finish at home You will need to take two antibiotics at home - Doxycycline and Cefdinir ( Omnicef) - you will need to take a dose of both of these tonight 12/10 You were also started on steroids for your breathing and will need to take a tapering dose at discharge - follow instructions from the pharmacy regarding the taper - your first home dose will be tomorrow 12/11 You were also found to have mild heart failure - you were treated with diuretics (water pills) and will need to take these at discharge: Furosemide (Lasix) 20mg 5 days a week and Spironolactone (Aldactone) 25mg daily - you will start these medicines tomorrow 2 You were found to have a high heart rate and are being started on a medicine to help lower your heart rate called metoprolol (Toprol) 12.5mg daily - you will start this medicine tomorrow 2 The metoprolol also lowers blood pressure so you will need a lower dose of Losartan - this dose was reduced to 25mg daily - you will start this dosing tomorrow 2 Stop taking triamterene/hydrochlorothiazide For the gastric reflux, you were already taking omeprazole prior to coming into the hospital - continue this medicine as prescribed Call your Primary Care doctor if any of the following symptoms or problems start or get worse: * Shortness of breath or difficulty breathing * Wake up at night short of breath * Chest pain * Cough * Swelling of your hands, feet, or legs * More fatigued or tired with your normal activity * Palpitations - sudden fast heart beats WEIGHT * Weigh yourself every morning after using the bathroom. * Use the same scale. * Wear the same amount of clothing. * Write your weight down on a chart. * Call your Primary Care doctor if you gain more than 2-3 pounds in 1-2 days. MEDICATIONS * Use this discharge instruction sheet for medication instructions. * Take your medications at the time your doctor ordered. * Do not skip a dose of your medicines. * If you miss a dose of medicine, take it as soon as possible, but DO NOT DOUBLE A DOSE. * Read your medicine information when you get home. * Know all of the side effects of your medicine. If in doubt, ask your pharmacist * Call your Primary Care doctor's office if you have any side effects. * Be sure all of your doctors know what medicine and herbs you take (including cold, flu, and herbal medicine). Take the following with you to your follow-up doctor appointments: * Weight Chart * Medication List * List of questions Do not drink excessive alcohol, beer or wine. Current Hospital Diet Patient's current hospital diet: AHA Diet (Heart Healthy), Diabetes Type 2 Diet Discharge Diet Recommended Diet: AHA Diet (Heart Healthy), Low Sodium Diet (2gm Na), Diabetes Type 2 Diet Pending Studies Studies pending at discharge: no Laboratory Results Hemoglobin A1c Test 12/09/16 05:15 Range/Units Estimated Average Glucose 123 mg/dl Hemoglobin A1c 5.9 H 4.5-5.6 % Medical Emergencies . Who to Call and When: Call 911 or go to the Emergency Room if: * If at any time you feel your situation is an emergency * You have tightness or pain in your chest that does not go away with rest or Nitroglycerin * You are very short of breath even with rest . Non-Emergent Contact Non-Emergency issues call your: Primary Care Provider Call Non-Emergent contact if: you have a fever, you have any medication questions . . "Provider Documentation" section prepared by Debbie Zhang. VTE Core Measure Inpt VTE Proph given/why not?: Enoxaparin (Lovenox)SQ
[2016-12-10] MEDS ORDERED: BENZ100C7 PO (16:38)
--- NOTE | 2016-12-10 17:53 | Discharge Summary ---
Discharge Summary Admission Date: Dec 09, 2016 at 00:30 Discharge Date: Dec 10, 2016 Discharge Disposition: Home Principal Diagnosis: DYSPNEA/COUGH - LIKELY MULTIFACTORIAL DUE TO: LLL CAP, ACUTE DIASTOLIC CHF, LARYNGEAL PHARYNGEAL REFLUX Secondary Diagnoses/Problems: PERICARDIAL EFFUSION PULMONARY NODULES SUPERFICIAL VEINS HTN GERD DM TYPE II Procedures: CXR IMPRESSION: Small interstitial infiltrate left base superimposed upon mild chronic baseline interstitial change. CTA CHEST IMPRESSION: 1. No evidence for pulmonary embolus. 2. Findings of mild and/or developing congestive heart failure. 3. Small bilateral pleural effusions. 4. Pulmonary nodularity slightly progressive compared to the prior study. Metastatic disease is considered BLLE DOPPLER IMPRESSION: 1. No evidence of acute lower extremity DVT 2. Minor chronic fibrin stranding within the left common femoral and femoral veins. ECHO: The left ventricular cavity is small. There is mild concentric left ventricular hypertrophy. The left ventricle is hyperdynamic. Ejection Fraction = >70 %. Borderline right ventricular enlargement. The right ventricular systolic function is borderline reduced. Grade I diastolic dysfunction, (abnormal relaxation pattern). There is a small to moderate predominantly apical and lateral pericardial effusion with organized appearence and no hemodynamic significance. Consultations: Dr. Brian, pulmonary Dr. Chavez [place], cardiology Pending Studies/Follow-Up: pertussis titers, urine for legionella pending please check BMP at follow up appointment - patient started on diuretics Medication Reconciliation New Medications: Cefdinir (Omnicef) 300 Mg Cap 1 CAP PO BID for 6 Days, #13 CAP Furosemide (Lasix) 20 Mg Tab 20 MG PO 5XWK for 30 Days, #30 TAB Spironolactone (Aldactone) 25 Mg Tab 25 MG PO DAILY for 30 Days, #30 TAB Benzonatate (Benzonatate) 100 Mg Cap 100 MG PO TID PRN for Cough for 20 Days, #20 CAP Doxycycline Hyclate (Doxycycline Hyclate) 100 Mg Cap 100 MG PO BID for 6 Days, #13 CAP Losartan Potassium (Losartan Potassium) 25 Mg Tab 25 MG PO DAILY for 30 Days, #30 TAB first dose on 12/11 Metoprolol Succinate (Metoprolol Succinate ER) 25 Mg Tabcr 12.5 MG PO QAM for 30 Days, #15 TAB first dose on 12/11 Prednisone (Prednisone) 10 Mg Tab 40 MG PO DAILY for 11 Days, #26 TAB starting on 12/11 - 40mg x 2 days, 30mg x 3 days, 20mg x 3 days, 10mg x 3 days Continued Medications: Albuterol Inhaler (Ventolin Inhaler) Aers 2 PUFFS INH PRN, #5 INHALER Biotin (Hard Nails) 2.5 Mg Cap 2.5 MG PO DALILY Calcium-Magnesium W/ Vitamin D (Calcium 500) 1 Tab Tab 1 TAB PO BID Ferrous Sulfate (Kp Ferrous Sulfate) 325 Mg Tab 1 TAB PO DAILY for 30 Days, #30 TAB 3 Refills Fluticasone Propionate Hfa (Flovent Hfa 220MCG Inhaler) 220 Mcg/ Aer 2 PUFF INH BID, INH Loratadine (Claritin) 10 Mg Tab 10 MG PO DAILY Magnesium Oxide (Mag-Ox) 400 Mg Tab 400 MG PO DAILY, TAB Metformin Hcl (Glucophage) 500 Mg Tab 500 MG PO BID, TAB Omeprazole (Prilosec) 20 Mg Capcr 20 MG PO BID Discontinued Medications: Losartan Potassium (Losartan Potassium) 50 Mg Tab 50 MG PO DAILY Nitrofurantoin Monohyd Macrocr (Macrobid) 100 Mg Cap 100 MG PO BID, #6 CAP Triamterene/Hctz (Dyazide 37.5MG/25MG) Cap 1 TAB PO DAILY, CAP Referrals At Discharge Follow up Referrals: [employer] Referral - Within 2 Weeks with David Brian MD Admission Information HPI (per Admitting provider): 71 YO female followed by Dr. Andersen. History of hypertension, asthma, GERD, DM type 2, and other problems noted below. Being followed by ENT for problems with GERD and associated hoarseness. Echo performed 10/30/16 for dyspnea on exertion. LVEF was 60-64%. Grade I diastolic dysfunction noted. RV systolic function was normal. Small circumferential pericardial effusion was noted. Follow-up echo was scheduled. E coli UTI diagnosed 11/28/16, treated with a 7-day course of nitrofurantoin. Presented to ED with 24 hour history of fever, chills, cough, SOB, malaise. Cough productive of white mucus. No associated chest pain. She is a nonsmoker. . Physical Exam (per Admitting): General Appearance: WD/WN, + mild distress Head: normocephalic, atraumatic Eyes: normal inspection, PERRL, EOMI, sclerae normal (conjunctivae pink) ENT: normal ENT inspection, hearing grossly normal, pharynx normal Neck: supple, no adenopathy, thyroid normal, trachea midline, + JVD (slight JVD) Respiratory/Chest: no respiratory distress, no accessory muscle use, + rales (few rales at bases), + pertinent finding (wheezing with forced expiration) Cardiovascular: regular rate, rhythm, no edema, no gallop, no murmur, normal peripheral pulses, + tachycardia, + pertinent finding (slight JVD; venous insufficiency lower extremities) Abdomen/GI: normal bowel sounds, non tender, soft, no organomegaly, no pulsatile mass Extremities/Musculoskelatal: no calf tenderness, normal capillary refill, no pedal edema, + pertinent finding (venous insufficiency) Neurologic/Psych: photograph retoucher II-XII nml as tested (PERRL, EOMI, no facial palsy), no motor/sensory deficits (grossly intact), alert, normal mood/affect, oriented x 3 Skin: normal color, warm/dry, no rash Lymphatic: no adenopathy Hospital Course DYSPNEA/COUGH - LIKELY MULTIFACTORIAL DUE TO: LLL CAP, ACUTE DIASTOLIC CHF, LARYNGEAL PHARYNGEAL REFLUX - patient presenting with worsening of chronic cough and dyspnea over the past 3 -4 months - CTA negative for PE, negative influenza, blood cultures negative, sputum culture pending - had PFTs 11/27/16 that did not show any signs of asthma - CXR on admission show LLL infiltrate; initially place on azithromycin/zosyn - changed to cefdinir/azithromycin on 12/09 and on 12/10 azithromycin changed to Doxycycline due to prolonged QTC - will need to complete 7 day antibiotic course - pertussis titers and urine legionella pending - leukocytosis likely steroid induced, has remained afebrile - CT showed mild CHF - echo - EF > 70%, grade I diastolic dysfunction - received Lasix 20mg IV x 2 on 12/09, transitioned to Lasix 40mg PO BID 12/10; cardiology recommending Lasix 20mg 5 days/week and spironolactone 25mg daily at discharge - continue current outpatient medical regimen: Flovent, Claritin and nebulizers - patient will require follow-up at the [place] [facility] in the 2 weeks following discharge - continue PPI - also being treated with PO prednisone - pulmonary recommending 10 day taper - consider Macrobid pulmonary toxicity PERICARDIAL EFFUSION - noted on TTE - not hemodynamically significant PULMONARY NODULES - outpatient follow up with pulmonary SUPERFICIAL VEINS - 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 Discharge Instructions Discharge Instructions Admission Reason for Admission: Shortness of Breath Discharge Discharge Diagnosis / Problem: Pneumonia, Heart Failure, Gastric Reflux Discharge Goals Goal(s): Decrease discomfort, Improve function Activity Recommendations Activity Limitations: resume your previous activity . Instructions / Follow-Up Instructions / Follow-Up Follow up with Dr. Andersen FridayDecember 13 at 11:30AM Make an appointment to see Dr. Brian in the [place] office in 2 weeks - [phone] You came into the hospital for worsening shortness of breath and cough which was felt to be due to 3 things: pneumonia, heart failure, and gastric reflux Your chest xray showed you had pneumonia - you will need antibiotics for a total of 7 days; you received antibiotics while you were in the hospital and will need to finish at home You will need to take two antibiotics at home - Doxycycline and Cefdinir ( Omnicef) - you will need to take a dose of both of these tonight 12/10 You were also started on steroids for your breathing and will need to take a tapering dose at discharge - follow instructions from the pharmacy regarding the taper - your first home dose will be tomorrow 12/11 You were also found to have mild heart failure - you were treated with diuretics (water pills) and will need to take these at discharge: Furosemide (Lasix) 20mg 5 days a week and Spironolactone (Aldactone) 25mg daily - you will start these medicines tomorrow 2 You were found to have a high heart rate and are being started on a medicine to help lower your heart rate called metoprolol (Toprol) 12.5mg daily - you will start this medicine tomorrow 2 The metoprolol also lowers blood pressure so you will need a lower dose of Losartan - this dose was reduced to 25mg daily - you will start this dosing tomorrow 12/11 Stop taking triamterene/hydrochlorothiazide For the gastric reflux, you were already taking omeprazole prior to coming into the hospital - continue this medicine as prescribed Call your Primary Care doctor if any of the following symptoms or problems start or get worse: * Shortness of breath or difficulty breathing * Wake up at night short of breath * Chest pain * Cough * Swelling of your hands, feet, or legs * More fatigued or tired with your normal activity * Palpitations - sudden fast heart beats WEIGHT * Weigh yourself every morning after using the bathroom. * Use the same scale. * Wear the same amount of clothing. * Write your weight down on a chart. * Call your Primary Care doctor if you gain more than 2-3 pounds in 1-2 days. MEDICATIONS * Use this discharge instruction sheet for medication instructions. * Take your medications at the time your doctor ordered. * Do not skip a dose of your medicines. * If you miss a dose of medicine, take it as soon as possible, but DO NOT DOUBLE A DOSE. * Read your medicine information when you get home. * Know all of the side effects of your medicine. If in doubt, ask your pharmacist * Call your Primary Care doctor's office if you have any side effects. * Be sure all of your doctors know what medicine and herbs you take (including cold, flu, and herbal medicine). Take the following with you to your follow-up doctor appointments: * Weight Chart * Medication List * List of questions Do not drink excessive alcohol, beer or wine. Current Hospital Diet Patient's current hospital diet: AHA Diet (Heart Healthy), Diabetes Type 2 Diet Discharge Diet Recommended Diet: AHA Diet (Heart Healthy), Low Sodium Diet (2gm Na), Diabetes Type 2 Diet Pending Studies Studies pending at discharge: no Laboratory Results Hemoglobin A1c Test 12/09/16 05:15 Range/Units Estimated Average Glucose 123 mg/dl Hemoglobin A1c 5.9 H 4.5-5.6 % Medical Emergencies . Who to Call and When: Call 911 or go to the Emergency Room if: * If at any time you feel your situation is an emergency * You have tightness or pain in your chest that does not go away with rest or Nitroglycerin * You are very short of breath even with rest . Non-Emergent Contact Non-Emergency issues call your: Primary Care Provider Call Non-Emergent contact if: you have a fever, you have any medication questions . . "Provider Documentation" section prepared by Debbie Zhang. VTE Core Measure Inpt VTE Proph given/why not?: Enoxaparin (Lovenox)SQ Additional Copies To Kaz Andersen MD
[2016-12-11] MEDS ORDERED: METOPROLOL SUCC 25MG EXT REL TAB PO SCH (09:00)
[2016-12-11] MEDS ORDERED: LOSARTAN POTASSIUM 25 MG TAB PO SCH (09:00)
[2016-12-12 14:06] LABS: LEGIONELLA ANTIGEN NOT DETECTED
== END 2016-12-10 17:35 | disposition home or self-care (01) | DRG 291 ==
LOC: ENRESERVTM → ENRESERVDT → C.EDB 20:13 → C.2T 12-09 00:30
PROVIDERS: ADMIT Hospitalist; ATTEND Internal Medicine
DX: I50.31 Acute diastolic (congestive) heart failure (principal); J18.9 Pneumonia, unspecified organism; I31.3 Pericardial effusion (noninflammatory); R91.8 Other nonspecific abnormal finding of lung field; I87.009 Postthrombotic syndrome without complications of unspecified extremity; D72.829 Elevated white blood cell count, unspecified; I10 Essential (primary) hypertension; K21.9 Gastro-esophageal reflux disease without esophagitis; E11.9 Type 2 diabetes mellitus without complications; Z79.84 Long term (current) use of oral hypoglycemic drugs; Z79.899 Other long term (current) drug therapy; Z88.1 Allergy status to other antibiotic agents; Z88.8 Allergy status to other drugs, medicaments and biological substances; Z87.440 Personal history of urinary (tract) infections; Z86.718 Personal history of other venous thrombosis and embolism; Z82.49 Family history of ischemic heart disease and other diseases of the circulatory system; Z83.3 Family history of diabetes mellitus; Z83.79 Family history of other diseases of the digestive system

== ENCOUNTER 2017-03-12 15:27 | Inpatient (IN) | payer OTHER ==
[~2017-03-12] VITALS: Ht 154.9 cm; Wt 68.2 kg
[~2017-03-12 15:27] MED LIST changes: +BENZ100C7 PO; +CALC-5 PO; -CALCTAB7 PO; +CZR25 PO; -CZR50 PO; +DXY100 PO; +FURO20TA PO; -GFNSR600 PO; +GLC/500 PO; +PRD10 PO; -PRED20TA2 PO; +TPRSR25 PO; -TRIA37.5 PO
[2017-03-12] MEDS ORDERED: MoRPHine SULFATE 4 MG/ML 1 ML CARP\\VIAL IV STA ×3 (15:38→19:00)
[2017-03-12] MEDS ORDERED: ONDANSETRON INJ 2 MG/ML 2 ML VIAL IV STA (15:38)
[2017-03-12 16:06] LABS: BASO ABS # 0.12 K/uL (0-0.2); COMPLETE YES; EOS % 2.6 %; HEMATOCRIT 42.5 % (37-47); IG% 0.3 %; LYMPH % 37.8 %; LYMPH ABS # 4.46 K/uL (1.2-3.4); MEAN CELL VOLUME 93.2 fL (80-100); MEAN CORPUSCULAR HEMOGLOBIN 30.9 pg (25-34); MEAN CORPUSCULAR HGB CONC 33.2 g/dl (32-36); MEAN PLATELET VOLUME 9.7 fL (7.4-10.4); MONO % 6.5 %; NEUT % 51.8 %; PLATELET COUNT 247 K/uL (130-400); RED BLOOD COUNT 4.56 M/uL (4.2-5.4)
[2017-03-12] MEDS ORDERED: FLVHFA220 INH (16:15)
[2017-03-12] MEDS ORDERED: PRVHFAIN INH (16:15)
[2017-03-12] MEDS ORDERED: ALBINS/ NEB (16:15)
[2017-03-12] MEDS ORDERED: SPR25 PO (16:15)
[2017-03-12] MEDS ORDERED: CALC-388 PO (16:16)
[2017-03-12] MEDS ORDERED: TPRSR/25 PO (16:16)
--- NOTE | 2017-03-12 16:27 | DIAGNOSTIC IMAGING REPORT ---
ADDENDUM Addendum: The initial impression incorrectly referred to the femur. The fracture is a right humeral fracture. Electronically signed by: Lc Rodrigez M.D. 03/12/2017 4:40 PM Dictated Date/Time: 03/12/2017 4:39 PM ORIGINAL REPORT RIGHT HUMERUS MIN 2 VIEWS ROUTINE CLINICAL HISTORY: Right upper arm pain status post fall. COMPARISON: None. FINDINGS: There is an oblique moderately displaced fracture of the proximal to mid shaft of the right humerus. Fracture is displaced 1 cm. Fracture extends into the right humeral head with involvement of the greater tuberosity. IMPRESSION: Comminuted right humeral fracture which extends from the level of the femoral head to the mid shaft. Fracture is mildly displaced within the right humeral head and neck and moderately displaced within the mid shaft. Electronically signed by: Lc Rodrigez M.D. 03/12/2017 4:25 PM Dictated Date/Time: 03/12/2017 4:22 PM
[2017-03-12 16:37] LABS: ALB/GLOB RATIO 0.8 (0.9-2); BUN/CREATININE RATIO 14.9 (10-20); CALCIUM 9.5 mg/dl (8.5-10.1); CREATININE 0.94 mg/dl (0.60-1.20); POTASSIUM 4.2 mmol/L (3.5-5.1)
--- NOTE | 2017-03-12 18:35 | EMERGENCY ROOM VISIT NOTE ---
History First contact with patient: 15:34 Chief Complaint: ARM PAIN Stated Complaint: RIGHT ARM PAIN History of Present Illness The patient is a 71 year old female who presents to the Emergency Room via private vehicle with complaints of "right arm pain". The patient states that earlier today she was walking, and stepped up onto the concrete porch and was walking at a brisk pace when she fell forward striking the right arm off of a brick casing. She notes immediate pain in the right arm. She denies any loss of consciousness or syncope. She denies any dizziness, lightheadedness or allergies. She states that the right hand feels "numb", but does note that she still is able to move the hand and does have sensation. Review of Systems A complete 10-point Review of Systems was discussed with the patient, with pertinent positives and negatives listed in the History of Present Illness. All remaining Review of Systems questions can be considered negative unless otherwise specified. Past Medical/Surgical History Medical Problems: (1) Asthma (2) Munguia's esophagus (3) Benign neoplasm of colon (4) Diabetes mellitus, type 2 (5) Dyslipidemia (6) Essential hypertension (7) GERD (gastroesophageal reflux disease) (8) History of DVT (deep vein thrombosis) (9) History of pancreatitis (10) History of vertebral compression fracture (11) Lumbar stenosis with neurogenic claudication (12) Osteoporosis (13) Statin intolerance Surgical Problems: (1) Status post cholecystectomy Family History Cancer Diabetes mellitus Gallbladder disease Heart disease Hypertension Social History Smoking Status: Never Smoker Alcohol Use: occasionally Marital Status: Housing Status: lives with family Occupation Status: retired Current/Historical Medications Scheduled Biotin (Hard Nails), 2.5 MG PO DAILY Calcium Carbonate-Vitamin D (Calcium + D3 600-200 mg-Unit), 1 TAB PO QAM Ferrous Sulfate (Kp Ferrous Sulfate), 1 TAB PO DAILY Fluticasone Propionate (Flovent Hfa), 2 PUFFS INH BID Furosemide (Lasix), 20 MG PO 5XWK Loratadine (Claritin), 10 MG PO DAILY Losartan Potassium (Losartan Potassium), 25 MG PO DAILY Magnesium Oxide (Mag-Ox), 400 MG PO DAILY Metformin Hcl (Glucophage), 500 MG PO BID Metoprolol Succinate (Metoprolol Succinate ER), 25 MG PO DAILY Omeprazole (Prilosec), 20 MG PO BID Spironolactone (Spironolactone), 25 MG PO QAM Scheduled PRN Albuterol (Ventolin Hfa), 2 PUFFS INH Q4 PRN for SOB/Wheezing Albuterol Sulf (Proventil 0.083% 2.5MG/3ML), 1 VIAL NEB Q4 PRN for Wheezing Benzonatate (Benzonatate), 100 MG PO TID PRN for Cough Allergies Coded Allergies: Ciprofloxacin (Verified Allergy, Unknown, rash, 03/12/17) pt Lisinopril (Verified Adverse Reaction, Unknown, COUGH, 03/12/17) Statins (Verified Adverse Reaction, Unknown, joint and muscle pains, ) Physical Exam Vital Signs Date Time Temp Pulse Resp B/P Pulse Ox O2 Delivery O2 Flow Rate FiO2 03/12/17 20:53 69 16 115/59 90 Room Air 03/12/17 18:58 62 18 126/68 94 Room Air 03/12/17 17:37 95 Room Air 03/12/17 17:25 72 18 115/61 96 Room Air 03/12/17 15:31 36.6 69 18 121/72 95 Room Air Physical Exam VITAL SIGNS - Vital signs and nursing notes were reviewed. Afebrile, normotensive, non-tachycardic and is saturating well on room air at 95%. GENERAL -71-year-old female appearing her stated age who is in no acute distress. Communicates well with provider and answers questions appropriately. SKIN - Without rashes. No petechial rash. HEAD - NC/AT. No ch signs or raccoons eyes. EYES - PERRL with EOMI bilaterally. Sclera anicteric. Palpebral conjunctiva pink and moist with no injection noted. EARS - No deformities of external structures noted on gross examination bilaterally. No pain elicited with palpation of the tragus bilaterally. External auditory canals without discharge or otorrhea. Tympanic membranes pearly shepherd without retraction or bulging. No fluid or purulent material visualized behind the TM. Handle of malleus, umbo, cone of light, pars tensa/ flaccid all easily visualized. No hemotympanum. NOSE - Midline and without cyanosis. No epistaxis or purulent drainage noted. Septum midline without deviation or septal hematoma noted. MOUTH/OROPHARYNX - Without perioral cyanosis. Buccal mucosa pink and moist and without leukoplakia. Tongue midline with equal elevation of palate bilaterally. No tonsillar hypertrophy, erythema, or exudates noted. Fair dentition noted. NECK - Neck with FROM. Supple to palpation. No lymphadenopathy noted. No nuchal rigidity. No C-spine tenderness. LUNGS - Chest wall symmetric without accessory muscle use, intercostals retractions, or central cyanosis. Normal vesicular breath sounds CTA B/L. No wheezes, rales, or rhonchi appreciated. CARDIAC - RRR with S1/S2. No murmur, rubs, or gallops appreciated. EXTREMITIES - No clubbing or peripheral cyanosis. No pretibial edema present. There is edema of the mid humeral region of the right upper extremity. There is exquisite tenderness to palpation overlying the right humerus. There are no breaks in the integument. The patient does have decreased range of motion of the right shoulder secondary to pain. She is able to flex and extend at the level of the right elbow. She has full range of motion of the right hand. There is symmetric clinical sciences professor strength of the hands bilaterally. No identifiable neurovascular deficit in the right upper extremity. Patient does have sensation to light touch overlying all aspects of the right upper extremity. The skin color is symmetric in the upper extremities. Temperature assessed via palpation is also symmetric in the bilateral upper extremities. Capillary refill is less than 2 seconds in the right upper shoulder. No evidence of compartment syndrome or emergent neurovascular deficit upon examination. Pulses are intact in the upper extremity. NEUROLOGIC - Cranial nerves II through XII grossly intact. PSYCH - Pt is very pleasant and interacts well with examiner. Medical Decision & Procedures ER Provider Diagnostic Interpretation: ADDENDUM Addendum: The initial impression incorrectly referred to the femur. The fracture is a right humeral fracture. Electronically signed by: Lc Rodrigez M.D. 03/12/2017 4:40 PM Dictated Date/Time: 03/12/2017 4:39 PM ORIGINAL REPORT RIGHT HUMERUS MIN 2 VIEWS ROUTINE CLINICAL HISTORY: Right upper arm pain status post fall. COMPARISON: None. FINDINGS: There is an oblique moderately displaced fracture of the proximal to mid shaft of the right humerus. Fracture is displaced 1 cm. Fracture extends into the right humeral head with involvement of the greater tuberosity. IMPRESSION: Comminuted right humeral fracture which extends from the level of the femoral head to the mid shaft. Fracture is mildly displaced within the right humeral head and neck and moderately displaced within the mid shaft. Electronically signed by: Lc Rodrigez M.D. 03/12/2017 4:25 PM Dictated Date/Time: 03/12/2017 4:[address] SCAN OF THE RIGHT HUMERUS WITHOUT IV CONTRAST CLINICAL HISTORY: Humeral fracture. COMPARISON STUDY: Radiographs of the right humerus dated 03/12/2017. Chest CT dated 12/08/2016. TECHNIQUE: CT scan of the right humerus is performed from the shoulder to the elbow. Images were reviewed in the axial, sagittal, and coronal planes. IV contrast was not administered for this examination. 3-D reformats are created and assessed. CT DOSE: 929.55 mGy.cm FINDINGS: The skeletal structures are osteopenic. There is an impacted and comminuted fracture of the humeral head and neck. There our minimally distracted fragments from the greater tuberosity of the humeral head. There is also a comminuted fracture involving the [id number] humeral diaphysis. There is minimal overriding of the diaphyseal fragments by approximately 1 cm. There is mild posterolateral distraction of the largest fragments by 1 cm. The distal humeral diaphysis appears intact. The elbow joint is grossly preserved. The humeral head remains within the glenoid fossa. Mild productive change is seen at the acromioclavicular joint. No scapular fracture is identified. The visualized right ribs appear intact. Fusion hardware is partially imaged in the upper lumbar spine. There is mild hemorrhage seen around the diaphyseal fracture fragments. No large hematoma is identified. No intramuscular hematoma is visualized. There is no shoulder joint effusion. A small calcified joint body is noted. No axillary adenopathy is identified. There is a 5 mm pulmonary nodule identified in the right middle lobe. Additional smaller nodules are seen in the right upper lobe. The visualized right lung parenchyma is otherwise grossly clear. Cholecystectomy clips are noted. IMPRESSION: 1. Comminuted fractures involving the right humeral head, neck, and shaft as detailed above. 2. No additional fracture is seen. 3. There is mild hemorrhage surrounding the diaphyseal fracture fragments. No large hematoma is identified. 4. Pulmonary nodules are again noted. These were better characterized on the 12/08/[address] Dictated: 03/12/2017 6:50 PM Transcribed: 03/12/2017 7:47 PM David Electronically signed by: Clement Elizabeth M.D. 03/12/2017 7:50 PM Dictated Date/Time: 03/12/2017 6:50 PM Laboratory Results 03/12/17 15:51 Red Blood Count 4.56, Mean Corpuscular Volume 93.2, Mean Corpuscular Hemoglobin 30.9, Mean Corpuscular Hemoglobin Concent 33.2, Mean Platelet Volume 9.7, Neutrophils (%) (Auto) 51.8, Lymphocytes (%) (Auto) 37.8, Monocytes (%) (Auto) 6.5, Eosinophils (%) (Auto) 2.6, Basophils (%) (Auto) 1.0, Neutrophils # (Auto) 6.11, Lymphocytes # (Auto) 4.46, Monocytes # (Auto) 0.77, Eosinophils # (Auto) 0.31, Basophils # (Auto) 0.12 03/12/17 15:51 Test 03/12/17 15:51 White Blood Count 11.80 K/uL (4.8-10.8) Red Blood Count 4.56 M/uL (4.2-5.4) Hemoglobin 14.1 g/dL (12.0-16.0) Hematocrit 42.5 % (37-47) Mean Corpuscular Volume 93.2 fL (80-100) Mean Corpuscular Hemoglobin 30.9 pg (25-34) Mean Corpuscular Hemoglobin Concent 33.2 g/dl (32-36) Platelet Count 247 K/uL (130-400) Mean Platelet Volume 9.7 fL (7.4-10.4) Neutrophils (%) (Auto) 51.8 % Lymphocytes (%) (Auto) 37.8 % Monocytes (%) (Auto) 6.5 % Eosinophils (%) (Auto) 2.6 % Basophils (%) (Auto) 1.0 % Neutrophils # (Auto) 6.11 K/uL (1.4-6.5) Lymphocytes # (Auto) 4.46 K/uL (1.2-3.4) Monocytes # (Auto) 0.77 K/uL (0.11-0.59) Eosinophils # (Auto) 0.31 K/uL (0-0.5) Basophils # (Auto) 0.12 K/uL (0-0.2) RDW Standard Deviation 46.0 fL (36.4-46.3) RDW Coefficient of Variation 13.5 % (11.5-14.5) Immature Granulocyte % (Auto) 0.3 % Immature Granulocyte # (Auto) 0.03 K/uL (0.00-0.02) Prothrombin Time 11.1 SECONDS (9.0-12.0) Prothromb Time International Ratio 1.0 (0.9-1.1) Activated Partial Thromboplast Time 24.5 SECONDS (21.0-31.0) Partial Thromboplastin Ratio 0.9 Anion Gap 6.0 mmol/L (3-11) Est Creatinine Clear Calc Drug Dose 47.7 ml/min Estimated GFR () 70.2 Estimated GFR (Non- 60.6 BUN/Creatinine Ratio 14.9 (10-20) Calcium Level 9.5 mg/dl (8.5-10.1) Total Bilirubin 0.4 mg/dl (0.2-1) Aspartate Amino Transf (AST/SGOT) 29 U/L (15-37) Alanine Aminotransferase (ALT/SGPT) 41 U/L (12-78) Alkaline Phosphatase 51 U/L (45-117) Total Protein 8.1 gm/dl (6.4-8.2) Albumin 3.7 gm/dl (3.4-5.0) Globulin 4.4 gm/dl (2.5-4.0) Albumin/Globulin Ratio 0.8 (0.9-2) Chemistry Specimen Hemolysis Medications Administered Medications (Trade) Dose Ordered Sig/Guillermo Route Start Time Stop Time Status Last Admin Dose Admin Morphine Sulfate (MoRPHine SULFATE INJ) 4 mg NOW STAT IV 03/12/17 15:38 03/12/17 15:40 DC 03/12/17 15:55 4 MG Ondansetron HCl (Zofran Inj) 4 mg NOW STAT IV 03/12/17 15:38 03/12/17 15:40 DC 03/12/17 15:55 4 MG Morphine Sulfate (MoRPHine SULFATE INJ) 4 mg NOW STAT IV 03/12/17 17:35 03/12/17 17:36 DC 03/12/17 17:54 4 MG Morphine Sulfate (MoRPHine SULFATE INJ) 2 mg NOW STAT IV 03/12/17 19:00 03/12/17 19:02 DC 03/12/17 19:34 2 MG Medical Decision Patient was seen and evaluated as above. After obtaining a thorough history and physical examination IV access was initiated and the above workup was performed. Patient presents status post mechanical fall with suspected fracture of the right proximal humerus. Radiograph supports this, with results as above. Patient was medicated with 4 mg of morphine and 4 mg of Zofran for pain. Although she subjectively notes numbness in the right hand, from a physical exam standpoint she does have full range of motion of the right hand with symmetric clinical sciences professor strength. She is able to appreciate light touch across the entire hand. At this point I do not suspect any compartment syndrome or evidence of true neurovascular emergency. The patient continued to experience pain, and was given 4 mg of morphine and was placed upon the continuous pulse ox monitor. I did discuss the case with my attending, and subsequently spoke with the orthopedist, Jerome Oquendo at 4:49 PM. He indicated that he'll be speaking with Dr. Owen, the on-call orthopedic surgeon and subsequent spoke with Dr. Murillo at 5:45 PM. We discussed the patient's subjective complaint of numbness, and clarified that from a physical examination standpoint these are not a true numbness of the hand. He recommended the patient be placed in a posterior long-arm, with stirrup similar to a coaptation splint. There is to be splinting with stirrup from the medial to lateral humerus. He also recommended obtaining a CT scan to better aide in identifying the fracture. The hand is to be in a neutral position. This was ordered, and an additional 2 more milligrams of morphine prior to manipulation. This was splinted with good fit after slight manipulation. A arm sling was applied. Patient's pain was improving. The patient was in the emergency department for quite some time, and indicated that she did not feel safe going home secondary to her pain level and her fracture. I then spoke with Dr. Murillo again, expressing my concern that the patient may need to be admitted for pain management and further evaluation and management. He agreed to admit the patient, and then spoke with the charge nurse to provide verbal orders. The patient will then be admitted for potential surgical fixation in the near future. Please refer to further documentation regarding her stay. There is note of pulmonary nodule on the CT scan, I did review her previous scans, and her most previous visit of which she was seen here for. During that time she had a CT of the chest, revealed pulmonary nodules and during her stay she was evaluated by Dr. Brian, a commodity analyst. It does appear that they' re aware of the nodules as well as have followed them chronologically. The patient was reassessed multiple times throughout her stay, and her neurovascular status of the right upper extremity remained intact, particularly post splinting. Patient's CBC does reveal what blood cell count 11.8 no anemia. Electrolytes within normal limits. Liver enzymes within normal limits. In the evaluation treatment this patient following differential diagnoses were entertained: Humeral fracture, forearm fracture, elbow fracture, contusion, among others. Impression Primary Impression: Right humeral fracture Additional Impression: Pulmonary nodules Departure Information Dispostion Admitted as an inpatient Condition POOR Referrals Kaz Andresen MD (PCP) Patient Instructions [facility] Problem Qualifiers
--- NOTE | 2017-03-12 19:48 | DIAGNOSTIC IMAGING REPORT ---
CT SCAN OF THE RIGHT HUMERUS WITHOUT IV CONTRAST CLINICAL HISTORY: Humeral fracture. COMPARISON STUDY: Radiographs of the right humerus dated 03/12/2017. Chest CT dated 12/08/2016. TECHNIQUE: CT scan of the right humerus is performed from the shoulder to the elbow. Images were reviewed in the axial, sagittal, and coronal planes. IV contrast was not administered for this examination. 3-D reformats are created and assessed. CT DOSE: 929.55 mGy.cm FINDINGS: The skeletal structures are osteopenic. There is an impacted and comminuted fracture of the humeral head and neck. There our minimally distracted fragments from the greater tuberosity of the humeral head. There is also a comminuted fracture involving the [id number] humeral diaphysis. There is minimal overriding of the diaphyseal fragments by approximately 1 cm. There is mild posterolateral distraction of the largest fragments by 1 cm. The distal humeral diaphysis appears intact. The elbow joint is grossly preserved. The humeral head remains within the glenoid fossa. Mild productive change is seen at the acromioclavicular joint. No scapular fracture is identified. The visualized right ribs appear intact. Fusion hardware is partially imaged in the upper lumbar spine. There is mild hemorrhage seen around the diaphyseal fracture fragments. No large hematoma is identified. No intramuscular hematoma is visualized. There is no shoulder joint effusion. A small calcified joint body is noted. No axillary adenopathy is identified. There is a 5 mm pulmonary nodule identified in the right middle lobe. Additional smaller nodules are seen in the right upper lobe. The visualized right lung parenchyma is otherwise grossly clear. Cholecystectomy clips are noted. IMPRESSION: 1. Comminuted fractures involving the right humeral head, neck, and shaft as detailed above. 2. No additional fracture is seen. 3. There is mild hemorrhage surrounding the diaphyseal fracture fragments. No large hematoma is identified. 4. Pulmonary nodules are again noted. These were better characterized on the 12/08/[address] Dictated: 03/12/2017 6:50 PM Transcribed: 03/12/2017 7:47 PM David Electronically signed by: Clement Elizabeth M.D. 03/12/2017 7:50 PM Dictated Date/Time: 03/12/2017 6:50 PM
[2017-03-12 21:38] VITALS: O2SAT 90; Ht 154.9 cm; Wt 68.2 kg
[2017-03-12 21:45] LABS: PARTIAL THROMBOPLASTIN RATIO 0.9; PROTHROMBIN TIME (PATIENT) 11.1 SECONDS (9.0-12.0)
[2017-03-12] MEDS ORDERED: NURSING VERBAL MED ORDER ONE (21:45)
[2017-03-12 22:18] VITALS: O2SAT 94
--- NOTE | 2017-03-12 22:22 | DIAGNOSTIC IMAGING REPORT ---
SINGLE VIEW CHEST CLINICAL HISTORY: Preoperative examination. FINDINGS: An AP, portable, upright chest radiograph is compared to study dated 12/10/2016. Correlation is made with chest CT dated 12/08/2016. The examination is degraded by portable technique, apical lordotic positioning, and patient rotation. The cardiomediastinal silhouette is unremarkable. There are low lung volumes and bibasilar atelectasis. No airspace consolidation or large pleural effusion is identified. No pneumothorax is seen. The skeletal structures are osteopenic. A right humeral fracture is partially imaged. Cholecystectomy clips are seen in the right upper quadrant. IMPRESSION: Low lung volumes with no acute cardiopulmonary abnormality. Electronically signed by: Clement Elizabeth M.D. 03/12/2017 10:21 PM Dictated Date/Time: 03/12/2017 10:19 PM
[2017-03-12] MEDS ORDERED: ALBUTEROL 0.083% NEBU SOLN 3 ML VIAL INH PRN (22:45)
[2017-03-12] MEDS ORDERED: ONDANSETRON INJ 2 MG/ML 2 ML VIAL IV PRN (22:45)
[2017-03-12] MEDS ORDERED: MoRPHine SULFATE 4 MG/ML 1 ML CARP\\VIAL IV PRN (22:45)
[2017-03-12] MEDS ORDERED: ACETAMINOPHEN 325 MG TAB PO PRN (22:45)
[2017-03-12] MEDS ORDERED: ALBUTEROL HFA 8 GM INHALER INH PRN (22:45)
[2017-03-12 22:59] LABS: URINE APPEARANCE CLEAR (CLEAR); URINE BILIRUBIN NEG (NEG); URINE COLOR YELLOW; URINE EPITHELIAL CELL AUTO >30 /lpf (0-5); URINE NITRITE NEG (NEG); URINE SPECIFIC GRAVITY 1.017 (1.000-1.030); UROBILINOGEN NEG (NEG); ZZUR CULT IF INDIC CLEAN CATCH NO
[2017-03-12 23:04] LABS: MANUAL MICROSCOPIC REQUIRED? NO; REVIEW REQ? NO
[2017-03-12 23:07] VITALS: BP 117/73; PULSE 92; TEMP 36.7; O2SAT 88
[2017-03-12 23:16] VITALS: O2SAT 93
[2017-03-12] MEDS: OXYCODONE HCL IR 5 MG TAB (IMMEDIATE RELEASE) PO PRN (23:25)
[2017-03-12] MEDS ORDERED: ALBUT/IPRATROP 3MG/0.5MG NEB 3 ML VIAL INH PRN (23:30)
[2017-03-12] MEDS ORDERED: GLUCAGON FOR INJ 1 MG VIAL SQ PRN (23:30)
[2017-03-12] MEDS ORDERED: GLUCOSE 10 TABS/TUBE PO PRN (23:30)
[2017-03-12] MEDS ORDERED: GLUCOSE 40% GEL 15 GM TUBE PO PRN (23:30)
[2017-03-12] MEDS ORDERED: DEXTROSE 50% 50 ML SYR IV PRN (23:30)
--- NOTE | 2017-03-13 00:33 | EMERGENCY ROOM VISIT NOTE ---
ED Visit Note First contact with patient: 15:34 I have personally evaluated this patient examined her and reviewed the pertinent labs and data. I have discussed the case with Jaspal Hernandez, the physician web assistant and agree with the plan. Please refer to the PA note This patient comes in after suffering a mechanical fall when she tripped and injured her proximal right arm. She has severe pain with any movement. X-rays show a spiral comminuted fracture of the midshaft humerus extending all the way up to the shoulder. She has good distal pulses and capillary refill. She complains of feeling tingly circumferentially in the hand. She has intact sensation to light touch. She is able move her fingers and has no motor deficits. At this point, I do not think she has compartment syndrome. She did receive multiple dosages of IV pain medication and I do think she needs to be admitted for pain management and monitoring of her hand from a neurovascular standpoint. She will also need to be evaluated by orthopedics and likely have surgery.
[2017-03-13] MEDS ORDERED: NURSING DECISION MEDICATION ORDER SCH (01:30)
--- NOTE | 2017-03-13 01:48 | INTERNAL MEDICINE CONSULTATION ---
DATE OF CONSULTATION: 03/13/2017 PCP : Dr. Andersen Hx obtained from px and records. Patient seen at the request of Dr. Murillo for preop evaluation and medical management. Patient currently admitted under Orthopedic service for right humeral fracture secondary to fall. Patient tripped in her home today, landed on her R side. Px noted excruciating right upper extremity pain and deformity. No chest pain, no shortness of breath, no syncope. Medical history significant for chronic diastolic heart failure, EF of 70%, hypertension, hyperlipidemia, GERD, DM2, on oral meds, history of postop DVT sp anticoagulation (2013). History of osteoporosis. Recent confinement November 2016 for multifactorial shortness of breath secondary to pneumonia, decompensated diastolic heart failure, laryngopharyngeal reflux. Marked improvement of symptoms following discharge. Stable disease ff [place] [facility] [place]. MED Hx as above SURGERY: She has had back surgery, dilatation and curettage, cholecystectomy HOME MEDICATIONS: Include Flovent, Claritin, Glucophage, mag oxide, metoprolol, Prilosec, Proventil, Ventolin, calcium plus D, ferrous sulfate, furosemide 20 mg 5 days a week, spironolactone 25 mg daily. ALLERGIES: RENEE INHIBITORS, CIPRO. FAMILY HISTORY: Hypertension, stroke, heart disease, diabetes, hyperthyroidism, esophageal cancer. PERSONAL AND SOCIAL HISTORY: Nonsmoker, no chronic intake of alcoholic beverages, homemaker. REVIEW OF SYSTEMS: As per HPI, all other ROS negative. FUNCTIONALITY : able to do housework, shopping w/o unusual cp, sob sx PHYSICAL EXAMINATION: VITAL SIGNS: Blood pressure was noted to be 110/70, pulse rate 90, RR 16, temperature 36.7, sats 93 on room air. GENERAL: Noted to be slightly anxious, no respiratory distress. SKIN: Normal color. HEENT: [place] palpebral conjunctivae, dry mucosa. NECK: Short neck. LUNGS: Decreased breath sounds. HEART: Regular rate and rhythm. ABDOMEN: Soft. EXTREMITIES: Sling on the right extremity. NEUROLOGIC: No gross focality. LABS: Hemoglobin was noted to be 14.1, hematocrit 42, white cells 11.8, platelets 247. Sodium 140, potassium 4.2, chloride 105, CO2 28, BUN 40, creatinine 0.9, glucose 100. Chest x-ray, atelectasis. Upper extremity CT, comminuted fracture, right humeral head, neck and shaft. EKG normal sinus rhythm, some T-wave flattening in inferior and lateral leads. HgA1c 5.9 (12/2016) ASSESSMENT: 1. Traumatic R humeral fracture underlying osteoporosis. 2. Hypertension, stable. 3. Chronic diastolic heart failure euvolemic. 4. GERD, stable on regimen. 5. DM2, on oral medications. well controlled as of recent outpx HgA1c 6. History of postop deep venous thrombosis sp anticoagulation (2013). RECOMMENDATIONS: No medical contraindication to contemplated procedure. Resume home diuretics (Lasix, spironolactone) once px eating postop. Monitor renal function with the resumption of diuretics. ISS BG goal 140-180 DVT prophylaxis. SCDs as per Ortho orders on admission Consider pharmacologic anticoagulation with Lovenox 40 mg SQ daily once bleeding risk is deemed to be minimal and negligible. Thank you very much for the consultation. Dr. Méndez will follow patient's progress. [facility]
[2017-03-13] MEDS ORDERED: CEFAZOLIN 2000 MG/60 ML D5W IV SCH (06:00)
[2017-03-13] MEDS ORDERED: INSULIN ASPART 100 UNITS/ML 3 ML PEN SC SCH ×2 (06:00→08:00)
[2017-03-13 07:12] VITALS: BP 105/74; PULSE 68; TEMP 36.9; O2SAT 94
[2017-03-13] MEDS: FLUTICASONE HFA 220 MCG INHALER INH SCH ×2 (07:30→20:50)
[2017-03-13] MEDS: METOPROLOL SUCC 25MG EXT REL TAB PO SCH (07:41)
[2017-03-13] MEDS ORDERED: LORATADINE 10 MG TAB PO SCH (09:00)
[2017-03-13] MEDS ORDERED: SPIRONOLACTONE 25 MG TAB PO SCH (09:00)
[2017-03-13] MEDS: LORATADINE 10 MG TAB PO SCH (09:00)
[2017-03-13] MEDS ORDERED: PANTOprazole SOD 40 MG TAB PO SCH (09:00)
[2017-03-13] MEDS ORDERED: METOPROLOL SUCC 25MG EXT REL TAB PO SCH (09:00)
[2017-03-13] MEDS: DOCUSATE SODIUM 100 MG CAP PO SCH ×2 (09:30→20:50)
[2017-03-13] MEDS: FERROUS SULFATE 325 MG TAB PO SCH (09:31)
[2017-03-13] MEDS: MAGNESIUM OXIDE 400 MG TAB PO SCH (09:31)
[2017-03-13] MEDS: PANTOprazole SOD 40 MG TAB PO SCH ×2 (09:31→20:50)
[2017-03-13] MEDS: LOSARTAN POTASSIUM 25 MG TAB PO SCH (09:32)
--- NOTE | 2017-03-13 09:48 | HISTORY & PHYSICAL EXAMINATION ---
DATE OF ADMISSION: 03/13/2017 HISTORY OF PRESENT ILLNESS: This 71-year-old female admitted to the Emergency Department after she sustained a trip and fall at home. She tripped on a low step and struck a brick door frame at home. She had no loss of consciousness. No shortness of breath or chest pain, no other constitutional symptoms. A simple mechanical fall. The patient is unable to use her right arm, has some tingling feelings in her fingers and presented to [facility]. She was seen in triaged and radiographed noting a closed mid shaft spiral oblique fracture of the humerus with spiraling proximally. She had a subsequent CT scan which noted [id number] displacement at the midshaft with spiraling into the proximal neck and head without displacement of the head. There was also a fracture of the greater tuberosity of the humerus with minimal displacement. 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 The Emergency Department then consulted orthopedics. The patient was then admitted to the hospital for pain control and management. The patient had no shortness of breath or chest pain, no syncope. The sensation in her hand steadily improved with increasing time from the time of the injury. Pain control was improved after she was placed in a long arm coaptation splint and with the use of pain medication. PAST MEDICAL HISTORY: Hyperlipidemia, gastroesophageal reflux, diabetes type 2, diet and medication controlled, chronic diastolic heart failure with ejection fraction of 70%, history of osteoporosis, and history of left lower extremity DVT postop. This occurred in 2013. PAST SURGICAL HISTORY: Cholecystectomy and lumbar spinal fusion in 2013. ALLERGIES: RENEE INHIBITORS AND CIPRO. MEDICATIONS: Flovent, Claritin, Glucophage, mag oxide, metoprolol, Prilosec, Proventil, Ventolin, calcium plus D, ferrous sulfate, furosemide 20 mg 5 days per week, and spironolactone 25 mg daily. SOCIAL HISTORY: The patient denies tobacco, alcohol or drug use. She is and lives with her spouse at home and she and her spouse are retired. PHYSICAL EXAMINATION: GENERAL: This is a 71-year-old female who is alert and oriented x3. Speech clear and fluent. Affect is appropriate. She is lying supine in her hospital room bed with a coaptation splint, right upper extremity. NEUROLOGIC: A\\T\\O x3. Speech is fluent. Affect is appropriate. Cranial nerves II-XII are grossly intact. HEENT: Normocephalic, atraumatic. EOMI, PERRLA. Oral mucosa is slightly dry. Trachea is midline. No JVD. HEART: Regular rate and rhythm. LUNGS: Clear to auscultation bilaterally. ABDOMEN: Soft, nontender, nondistended. No guarding or rigidity. GENITAL AND RECTAL: Deferred. BREASTS: Deferred. EXTREMITIES: Right upper extremity is in a well-padded long arm coaptation splint at approximately 90 degrees of flexion at the elbow with neutral hand position. Cap refill is brisk, less than 2 seconds. Radial pulse is 2/4. Radial, ulnar, median and axillary nerve sensory and motor functions are intact. She does have some minor "dysesthesias and tingling" at the tips of her fingers. Fingers, as I stated previously, are pink and warm with brisk cap refill. RADIOGRAPHS: CT scans reviewed and it is closed spiral oblique fracture midshaft humerus with proximal migration of the fracture line into the humeral neck and head with no displacement proximally. Moderate displacement in the central portion of the humerus with also fracture of the greater tuberosity. Also noted degenerative arthritis of the glenohumeral joint with near complete loss of the articular cartilage with loss of joint space. LABORATORY DATA: Reviewed and medical consult appreciated. IMPRESSION: 1. Mechanical fall with a right closed midshaft spiral oblique humeral fracture with proximal extension. No evidence of head splitting. Minor displacement of the greater tuberosity fracture. 2. Osteoporosis. 3. Diet controlled diabetes type 2, on oral medications; reflux; chronic diastolic heart disease; euvolemic; hypertension; hypercholesterolemia; and history of postoperative deep venous thrombosis, right lower extremity treated with anticoagulation. Anticoagulation has stopped several years prior. RECOMMENDATIONS: At this time, the patient will be treated nonoperatively as this fracture pattern is a high rate of healing with close treatment. She should be maintained in a coaptation splint, right upper extremity with a sling. Ice to the affected areas needed. Elevation 2-3 pillows as needed to help control finger and arms swelling. Continue SCDs and BOYD hose while in bed and will recommend Lovenox treatment while in the hospital and we will confer with medical service for recommendations on discharge anticoagulation if necessary. Continue home medications and resume home diuretic.
[2017-03-13] MEDS: OXYCODONE HCL IR 5 MG TAB (IMMEDIATE RELEASE) PO PRN ×4 (10:25→22:35)
[2017-03-13] MEDS: ENOXAPARIN 40 MG/0.4 ML SYR SQ SCH (10:25)
[2017-03-13] MEDS ORDERED: NURSING VERBAL MED ORDER ONE (10:30)
--- NOTE | 2017-03-13 10:53 | Clinical Documentation Query ---
HEMALATHA Morrissey : CLINICAL DOCUMENTATION QUERY Documentation includes the following: "1. Mechanical fall with a right closed midshaft spiral oblique humeral fracture with proximal extension. No evidence of head splitting. Minor displacement of the greater tuberosity fracture. 2. Osteoporosis." If, in your clinical opinion, the degree of injury (comminuted fractures involving the right humeral head, neck, and shaft) was out of proportion to the mechanism of injury (ground level fall), consider documentation as suggested below as this impacts DRG assignment. In your clinical opinion is this patient being managed for: ( X ) Osteoporotic right closed midshaft spiral oblique humeral fracture in the setting of a ground level fall. ( ) Other explanation of clinical findings (Please Explain) ( ) Unable to determine (Please Define) ( ) Need to Discuss ( ) Not Agree The medical record reflects the following clinical findings, treatment, and risk factors. Clinical Indicators: As above Treatment: Orthopedic consultation, splinting, ice, elevation Risk Factors: Osteoporosis Pathological Fracture * Some fractures may occur d/t minor trauma or without any trauma at all_ * This type of fracture is generally predisposed by underlying conditions like metastatic disease, osteoporosis, osteopenia, etc. * Only the physician can determine whether the fracture is out of proportion to the degree of trauma. Please clarify and document your clinical opinion in the progress notes and discharge summary. Terms such as "probable", "suspected", "likely", "questionable", "possible", or "still to be ruled out" are acceptable. IF IN AGREEMENT, YOU MUST DOCUMENT ABOVE DIAGNOSTIC STATEMENT IN DAILY PROGRESS NOTES AND DISCHARGE SUMMARY. This document is not part of the patient's record. Thank You, Jesse Gayle, KAREN [phone]
[2017-03-13] MEDS: INSULIN ASPART 100 UNITS/ML 3 ML PEN SC SCH ×3 (12:00→20:51)
[2017-03-13 14:51] VITALS: BP 122/80; PULSE 87; TEMP 37.1; O2SAT 92
[2017-03-13] MEDS ORDERED: POLYETHYLENE (MIRALAX) 17 GM PACK PO PRN (18:00)
[2017-03-13] MEDS ORDERED: flovent INH (18:00)
[2017-03-13] MEDS ORDERED: ZOLE5INJ INJ (18:02)
--- NOTE | 2017-03-13 18:15 | Progress Note ---
Medicine Progress Note Date & Time of Visit: March 13, 2017 at 17:54. Subjective 71 yo F with osteoporosis and diabetes suffered R humeral fracture s/p mechanical fall -pain not well-controlled, but feels the Tylenol is working now -Denies other symptoms of chest pain, shortness of breath, swelling or weight gain recently -was feeling good ("frisky") yesterday and walked too fast Objective Last 8 Hrs Date Time Temp Pulse Resp B/P Pulse Ox O2 Delivery O2 Flow Rate FiO2 03/13/17 16:00 Room Air 03/13/17 14:51 37.1 87 16 122/80 92 Room Air Physical Exam: GEN: WNWD, in no acute distress, alert and appropriate HEENT: NC/AT, normal sclerae CARDIO: reg rate, S1/2 heard without m/g/r LUNGS: CTA bilaterally, no crackles, rales or wheezes, good diaphragmatic excursion ABD: soft, non-tender, non-distended, no rebound or guarding EXTREMITY: RUE in splint, fingers are warm, mobile and sensation is intact. LUE machine adjuster leader case trim strength intact-WWP. No edema or swelling in lower extremities-WWP NEURO: CN 2-12 grossly intact SKIN: warm and dry Laboratory Results: 03/12/17 15:51 Red Blood Count 4.56, Mean Corpuscular Volume 93.2, Mean Corpuscular Hemoglobin 30.9, Mean Corpuscular Hemoglobin Concent 33.2, Mean Platelet Volume 9.7, Neutrophils (%) (Auto) 51.8, Lymphocytes (%) (Auto) 37.8, Monocytes (%) (Auto) 6.5, Eosinophils (%) (Auto) 2.6, Basophils (%) (Auto) 1.0, Neutrophils # (Auto) 6.11, Lymphocytes # (Auto) 4.46, Monocytes # (Auto) 0.77, Eosinophils # (Auto) 0.31, Basophils # (Auto) 0.12 03/12/17 15:51 Test 03/12/17 15:51 03/12/17 22:30 03/13/17 17:11 White Blood Count 11.80 K/uL (4.8-10.8) Red Blood Count 4.56 M/uL (4.2-5.4) Hemoglobin 14.1 g/dL (12.0-16.0) Hematocrit 42.5 % (37-47) Mean Corpuscular Volume 93.2 fL (80-100) Mean Corpuscular Hemoglobin 30.9 pg (25-34) Mean Corpuscular Hemoglobin Concent 33.2 g/dl (32-36) Platelet Count 247 K/uL (130-400) Mean Platelet Volume 9.7 fL (7.4-10.4) Neutrophils (%) (Auto) 51.8 % Lymphocytes (%) (Auto) 37.8 % Monocytes (%) (Auto) 6.5 % Eosinophils (%) (Auto) 2.6 % Basophils (%) (Auto) 1.0 % Neutrophils # (Auto) 6.11 K/uL (1.4-6.5) Lymphocytes # (Auto) 4.46 K/uL (1.2-3.4) Monocytes # (Auto) 0.77 K/uL (0.11-0.59) Eosinophils # (Auto) 0.31 K/uL (0-0.5) Basophils # (Auto) 0.12 K/uL (0-0.2) RDW Standard Deviation 46.0 fL (36.4-46.3) RDW Coefficient of Variation 13.5 % (11.5-14.5) Immature Granulocyte % (Auto) 0.3 % Immature Granulocyte # (Auto) 0.03 K/uL (0.00-0.02) Prothrombin Time 11.1 SECONDS (9.0-12.0) Prothromb Time International Ratio 1.0 (0.9-1.1) Activated Partial Thromboplast Time 24.5 SECONDS (21.0-31.0) Partial Thromboplastin Ratio 0.9 Anion Gap 6.0 mmol/L (3-11) Est Creatinine Clear Calc Drug Dose 47.7 ml/min Estimated GFR () 70.2 Estimated GFR (Non- 60.6 BUN/Creatinine Ratio 14.9 (10-20) Calcium Level 9.5 mg/dl (8.5-10.1) Total Bilirubin 0.4 mg/dl (0.2-1) Aspartate Amino Transf (AST/SGOT) 29 U/L (15-37) Alanine Aminotransferase (ALT/SGPT) 41 U/L (12-78) Alkaline Phosphatase 51 U/L (45-117) Total Protein 8.1 gm/dl (6.4-8.2) Albumin 3.7 gm/dl (3.4-5.0) Globulin 4.4 gm/dl (2.5-4.0) Albumin/Globulin Ratio 0.8 (0.9-2) Chemistry Specimen Hemolysis Urine Color YELLOW Urine Appearance CLEAR (CLEAR) Urine pH 7.0 (4.5-7.5) Urine Specific [place] 1.017 (1.000-1.030) Urine Protein NEG (NEG) Urine Glucose (UA) NEG (NEG) Urine Ketones NEG (NEG) Urine Occult Blood NEG (NEG) Urine Nitrite NEG (NEG) Urine Bilirubin NEG (NEG) Urine Urobilinogen NEG (NEG) Urine Leukocyte Esterase TRACE (NEG) Urine WBC (Auto) 1-5 /hpf (0-5) Urine RBC (Auto) 0-4 /hpf (0-4) Urine Hyaline Casts (Auto) 0 /lpf (0-5) Urine Epithelial Cells (Auto) >30 /lpf (0-5) Urine Bacteria (Auto) NEG (NEG) Bedside Glucose 152 mg/dl (70-90) Last 24 Hours Test 03/12/17 22:30 03/13/17 06:03 03/13/17 09:17 03/13/17 11:57 Urine Color YELLOW Urine Appearance CLEAR Urine pH 7.0 Urine Specific [place] 1.017 Urine Protein NEG Urine Glucose (UA) NEG Urine Ketones NEG Urine Occult Blood NEG Urine Nitrite NEG Urine Bilirubin NEG Urine Urobilinogen NEG Urine Leukocyte Esterase TRACE Urine WBC (Auto) 1-5 /hpf Urine RBC (Auto) 0-4 /hpf Urine Hyaline Casts (Auto) 0 /lpf Urine Epithelial Cells (Auto) >30 /lpf Urine Bacteria (Auto) NEG Bedside Glucose 151 mg/dl 114 mg/dl 131 mg/dl Test 03/13/17 17:11 Bedside Glucose 152 mg/dl Assessment & Plan 71 yoF with mechanical fall and a R humeral fracture ASSESSMENT: 1. Pain 2/2 Traumatic R humeral fracture-not an operative candidate 2. Osteoporosis on Reclast infusions yearly 3. Pulmonary nodules 4. Hypertension, stable. 5. Chronic diastolic heart failure 6. GERD, stable on regimen. 7. DM2, on metformin, well controlled. 8. History of postop deep venous thrombosis s/p anticoagulation (2014). RECOMMENDATIONS: For better pain control would schedule Tylenol and use Oxycodone IR for breakthrough as ordered Added Miralax PRN to bowel regimen Nonemergent CT scan as outpatient to monitor pulmonary nodules Reclast infusion due in two weeks--defer to Ortho to decide how long to delay Patient has questions regarding repeat assessments to ensure things are healing correctly...? PT/OT per Ortho Cont home medications and monitor PRP ISS BG goal 140-180 DVT prophylaxis-Lovenox Thank you very much for the consultation. Rita Méndez DO [facility] Hospitalist Current Inpatient Medications: Current Inpatient Medications Medications (Trade) Dose Ordered Sig/Guillermo Route Start Time Stop Time Status Last Admin Dose Admin Morphine Sulfate (MoRPHine SULFATE INJ) 3 mg Q3H PRN IV 03/12/17 22:45 03/26/17 22:44 03/13/17 07:27 3 MG Docusate Sodium (coLACE CAP) 100 mg BID PO 03/13/17 09:00 04/12/17 08:59 03/13/17 09:30 100 MG Acetaminophen (Tylenol Tab) 650 mg Q6H PRN PO 03/12/17 22:45 04/11/17 22:44 03/13/17 16:18 650 MG Oxycodone HCl (Roxicodone Immediate Rel Tab) `1-2 tabs for pain 1 tab ... Q4H PRN PO 03/12/17 22:45 03/26/17 22:44 03/13/17 14:27 10 MG Ondansetron HCl (Zofran Inj) 4 mg Q6H PRN IV 03/12/17 22:45 04/11/17 22:44 03/13/17 07:28 4 MG Metoprolol Succinate (Toprol Xl Tab) 25 mg QAM PO 03/13/17 09:00 04/12/17 08:59 03/13/17 07:41 25 MG Magnesium Oxide (Mag-Ox Tab) 400 mg DAILY PO 03/13/17 09:00 04/12/17 08:59 03/13/17 09:31 400 MG Loratadine 10 mg 10 mg DAILY PO 03/13/17 09:00 04/12/17 08:59 Cefazolin Sodium (Ancef 2000mg/60 ml D5W) 60 ml @ 100 mls/hr PREOP IV 03/13/17 06:00 03/13/17 18:00 Glucose (Glucose 40% Gel) 15-30 GRAMS 15 GRAMS... UD PRN PO 03/12/17 23:30 04/11/17 23:29 Glucose (Glucose Chew Tab) 4-8 Tablets 4 Tabl... UD PRN PO 03/12/17 23:30 04/11/17 23:29 Dextrose (Dextrose 50% 50ML Syringe) 25-50ML OF 50% DW IV FOR... UD PRN IV 03/12/17 23:30 04/11/17 23:29 Glucagon (Glucagon Inj) 1 mg UD PRN SQ 03/12/17 23:30 04/11/17 23:29 Fluticasone Propionate (Flovent Hfa 220MCG Inhaler) 2 puffs BID INH 03/13/17 09:00 04/12/17 08:59 Losartan Potassium (coZAAR TAB) 25 mg DAILY PO 03/13/17 09:00 04/12/17 08:59 03/13/17 09:32 25 MG Ferrous Sulfate (Feosol Tab) 325 mg DAILY PO 03/13/17 09:00 04/12/17 08:59 03/13/17 09:31 325 MG Pantoprazole Sodium (Protonix Tab) 40 mg BID PO 03/13/17 09:00 04/12/17 08:59 03/13/17 09:31 40 MG Albuterol/ Ipratropium (Duoneb) 3 ml Q2H PRN INH 03/12/17 23:30 04/11/17 23:29 Enoxaparin Sodium (Lovenox Inj) 40 mg QAM SQ 03/13/17 09:00 04/12/17 08:59 03/13/17 10:25 40 MG Spironolactone (Aldactone Tab) 25 mg QAM PO 03/14/17 09:00 04/13/17 08:59 Furosemide (Lasix Tab) 20 mg MoTuWeThFr@0900 PO 03/14/17 09:00 04/13/17 08:59 Insulin Aspart (novoLOG ASPART) SLIDING SCALE If C... ACHS SC 03/13/17 12:00 04/12/17 05:59
[2017-03-13] MEDS: ACETAMINOPHEN 325 MG TAB PO SCH (20:51)
[2017-03-13 23:55] VITALS: BP 109/71; TEMP 37.2; O2SAT 92
[2017-03-14] MEDS: ACETAMINOPHEN 325 MG TAB PO SCH ×3 (02:28→13:55)
[2017-03-14] MEDS: OXYCODONE HCL IR 5 MG TAB (IMMEDIATE RELEASE) PO PRN ×4 (02:29→16:24)
[2017-03-14 06:56] VITALS: BP 102/67; PULSE 78; TEMP 36.6; O2SAT 90
[2017-03-14 07:48] LABS: BUN/CREATININE RATIO 16.4 (10-20); CALCIUM 8.9 mg/dl (8.5-10.1); CREATININE 0.78 mg/dl (0.60-1.20); POTASSIUM 4.2 mmol/L (3.5-5.1)
[2017-03-14] MEDS: INSULIN ASPART 100 UNITS/ML 3 ML PEN SC SCH ×2 (08:00→12:00)
[2017-03-14] MEDS: FLUTICASONE HFA 220 MCG INHALER INH SCH (08:49)
[2017-03-14] MEDS: FERROUS SULFATE 325 MG TAB PO SCH (08:50)
[2017-03-14] MEDS: LORATADINE 10 MG TAB PO SCH (08:50)
[2017-03-14] MEDS: LOSARTAN POTASSIUM 25 MG TAB PO SCH (08:50)
[2017-03-14] MEDS: DOCUSATE SODIUM 100 MG CAP PO SCH (08:50)
[2017-03-14 08:51] VITALS: BP 117/81; PULSE 93
[2017-03-14] MEDS: METOPROLOL SUCC 25MG EXT REL TAB PO SCH (08:51)
[2017-03-14] MEDS: MAGNESIUM OXIDE 400 MG TAB PO SCH (08:51)
[2017-03-14] MEDS: PANTOprazole SOD 40 MG TAB PO SCH (08:51)
[2017-03-14] MEDS ORDERED: SPIRONOLACTONE 25 MG TAB PO SCH (09:00)
[2017-03-14] MEDS ORDERED: FUROSEMIDE 20 MG TAB PO SCH (09:00)
[2017-03-14] MEDS: ENOXAPARIN 40 MG/0.4 ML SYR SQ SCH (09:38)
[2017-03-14 15:41] VITALS: BP 137/91; PULSE 81; TEMP 36.8; O2SAT 90
--- NOTE | 2017-03-14 15:41 | Orthopedic Progress Note ---
Orthopedic Progress Note Date of Service March 14, 2017. Subjective Reports: feeling well, pain controlled w PO medications (States she waited too long before asking for the meds earlier today which increased her pain. Otherwise, she has been doing fine.) Objective N/V intact, splint C/D/I, capillary refill less than 2 sec., A&O x3 Right hand fingers mobile. Splint and sling in place. Date Time Temp Pulse Resp B/P Pulse Ox O2 Delivery O2 Flow Rate FiO2 03/14/17 08:51 93 117/81 03/14/17 07:05 Room Air 03/14/17 06:56 36.6 78 16 102/67 90 Room Air 03/13/17 23:55 37.2 18 109/71 92 Room Air 03/13/17 23:50 Room Air 03/13/17 16:00 Room Air Assessment & Plan Assessment: Right midshaft and proximal humerus fx. Plan: Plan is for closed tx. D/C today with plan to follow up in 1 week at our [facility] office for x-rays and re- evaluation. Inhouse Planning Pain Management: PO Tylenol, Oxy IR DVT Prophylaxis: Lovenox Discharge Planning Discharge Planning: home Pain Management: PO Tylenol, Oxy IR DVT Prophylaxis: Lovenox
[2017-03-14] MEDS ORDERED: RXC5 PO (15:44)
[2017-03-14] MEDS ORDERED: LVNIS40 SQ (15:44)
[2017-03-14] MEDS ORDERED: ACET-1138 PO (15:44)
--- NOTE | 2017-03-14 15:48 | Discharge Instructions ---
Discharge Instructions Date of Service March 14, 2017. Admission Reason for Admission: Right Proximal Humerus Fracture Discharge Discharge Diagnosis / Problem: right humerus fracture Discharge Goals Goal(s): Decrease discomfort, Improve function Activity Recommendations Activity Limitations: per Instructions/Follow-up section Lifting Limitations: none (No use of right arm) . Instructions / Follow-Up Instructions / Follow-Up Keep splint and sling in place at all times. Range of motion as tolerated with the right hand. Lovenox will be used daily for 14 days as prophylaxis for deep vein thrombosis. Call [facility] at [phone] for a follow up with Dr. Murillo's clinic for in 1 week for x-rays and re-evaluation. Current Hospital Diet Patient's current hospital diet: Regular Diet, Diabetes Type 2 Diet Discharge Diet Recommended Diet: Regular Diet Pending Studies Studies pending at discharge: no Medical Emergencies . Who to Call and When: Medical Emergencies: If at any time you feel your situation is an emergency, please call 911 immediately. . Non-Emergent Contact Non-Emergency issues call your: Surgeon Call Non-Emergent contact if: your pain is not controlled, your pain is worsening . "Provider Documentation" section prepared by Noe Rincon. . VTE Core Measure Inpt VTE Proph given/why not?: Enoxaparin (Lovenox)SQ
[2017-03-14 16:36] VITALS: BP 137/91; PULSE 81; TEMP 36.8; O2SAT 90
--- NOTE | 2017-03-14 17:07 | Progress Note ---
Medicine Progress Note Date & Time of Visit: March 14, 2017 at 17:04. Subjective 71 yo F with R humeral fracture -pain improved today on scheduled Tylenol and Oxy IR prn -denies nausea -feeling improved with pain managed -preparing for discharge today per Ortho Objective Last 8 Hrs Date Time Temp Pulse Resp B/P Pulse Ox O2 Delivery O2 Flow Rate FiO2 03/14/17 16:36 36.8 81 16 90 Room Air 03/14/17 15:41 36.8 81 16 137/91 90 Room Air Physical Exam: GEN: WNWD, in no acute distress, alert and appropriate HEENT: NC/AT, normal sclerae CARDIO: reg rate, S1/2 heard without m/g/r LUNGS: CTA bilaterally, no crackles, rales or wheezes, good diaphragmatic excursion ABD: soft, non-tender, non-distended, no rebound or guarding EXTREMITY: RUE in splint, fingers are warm, mobile and sensation is intact. SKIN: warm and dry Laboratory Results: 03/14/17 06:30 Test 03/14/17 06:30 03/14/17 07:59 Anion Gap 6.0 mmol/L (3-11) Est Creatinine Clear Calc Drug Dose 57.6 ml/min Estimated GFR () 88.0 Estimated GFR (Non- 76.0 BUN/Creatinine Ratio 16.4 (10-20) Calcium Level 8.9 mg/dl (8.5-10.1) Bedside Glucose 111 mg/dl (70-90) Last 24 Hours Test 03/13/17 17:11 03/13/17 20:44 03/14/17 06:30 03/14/17 07:59 Bedside Glucose 152 mg/dl 148 mg/dl 111 mg/dl Sodium Level 138 mmol/L Potassium Level 4.2 mmol/L Chloride Level 104 mmol/L Carbon Dioxide Level 28 mmol/L Anion Gap 6.0 mmol/L Blood Urea Nitrogen 13 mg/dl Creatinine 0.78 mg/dl Est Creatinine Clear Calc Drug Dose 57.6 ml/min Estimated GFR () 88.0 Estimated GFR (Non- 76.0 BUN/Creatinine Ratio 16.4 Random Glucose 110 mg/dl Calcium Level 8.9 mg/dl Assessment & Plan 71 yoF with mechanical fall and a R humeral fracture ASSESSMENT: 1. Pain 2/2 Traumatic R humeral fracture-not an operative candidate 2. Osteoporosis on Reclast infusions yearly 3. Pulmonary nodules 4. Hypertension, stable. 5. Chronic diastolic heart failure 6. GERD, stable on regimen. 7. DM2, on metformin, well controlled. 8. History of postop deep venous thrombosis s/p anticoagulation (2014). RECOMMENDATIONS: For better pain control would schedule Tylenol and use Oxycodone IR for breakthrough as ordered Added Miralax PRN to bowel regimen Nonemergent CT scan as outpatient to monitor pulmonary nodules-pt made aware and verbalized understanding Reclast infusion due in two weeks--defer to Immunohematologist to decide how long to delay DVT prophylaxis-Lovenox at home per Ortho x 14 days Thank you very much for the consultation. Rita Méndez DO [facility] Hospitalist Current Inpatient Medications: Current Inpatient Medications Medications (Trade) Dose Ordered Sig/Guillermo Route Start Time Stop Time Status Last Admin Dose Admin Morphine Sulfate (MoRPHine SULFATE INJ) 3 mg Q3H PRN IV 03/12/17 22:45 03/26/17 22:44 03/13/17 07:27 3 MG Docusate Sodium (coLACE CAP) 100 mg BID PO 03/13/17 09:00 04/12/17 08:59 03/14/17 08:50 100 MG Oxycodone HCl (Roxicodone Immediate Rel Tab) `1-2 tabs for pain 1 tab ... Q4H PRN PO 03/12/17 22:45 03/26/17 22:44 03/14/17 16:24 10 MG Ondansetron HCl (Zofran Inj) 4 mg Q6H PRN IV 03/12/17 22:45 04/11/17 22:44 03/13/17 07:28 4 MG Metoprolol Succinate (Toprol Xl Tab) 25 mg QAM PO 03/13/17 09:00 04/12/17 08:59 03/14/17 08:51 25 MG Magnesium Oxide (Mag-Ox Tab) 400 mg DAILY PO 03/13/17 09:00 04/12/17 08:59 03/14/17 08:51 400 MG Loratadine (Claritin Tab) 10 mg DAILY PO 03/13/17 09:00 04/12/17 08:59 03/14/17 08:50 10 MG Glucose (Glucose 40% Gel) 15-30 GRAMS 15 GRAMS... UD PRN PO 03/12/17 23:30 04/11/17 23:29 Glucose (Glucose Chew Tab) 4-8 Tablets 4 Tabl... UD PRN PO 03/12/17 23:30 04/11/17 23:29 Dextrose (Dextrose 50% 50ML Syringe) 25-50ML OF 50% DW IV FOR... UD PRN IV 03/12/17 23:30 04/11/17 23:29 Glucagon (Glucagon Inj) 1 mg UD PRN SQ 03/12/17 23:30 04/11/17 23:29 Fluticasone Propionate (Flovent Hfa 220MCG Inhaler) 2 puffs BID INH 03/13/17 09:00 04/12/17 08:59 03/14/17 08:49 2 PUFFS Losartan Potassium (coZAAR TAB) 25 mg DAILY PO 03/13/17 09:00 04/12/17 08:59 03/14/17 08:50 25 MG Ferrous Sulfate (Feosol Tab) 325 mg DAILY PO 03/13/17 09:00 04/12/17 08:59 03/14/17 08:50 325 MG Pantoprazole Sodium (Protonix Tab) 40 mg BID PO 03/13/17 09:00 04/12/17 08:59 03/14/17 08:51 40 MG Albuterol/ Ipratropium (Duoneb) 3 ml Q2H PRN INH 03/12/17 23:30 04/11/17 23:29 Enoxaparin Sodium (Lovenox Inj) 40 mg QAM SQ 03/13/17 09:00 04/12/17 08:59 03/14/17 09:38 40 MG Spironolactone (Aldactone Tab) 25 mg QAM PO 03/14/17 09:00 04/13/17 08:59 03/14/17 08:50 25 MG Furosemide (Lasix Tab) 20 mg MoTuWeThFr@0900 PO 03/14/17 09:00 04/13/17 08:59 03/14/17 08:50 20 MG Insulin Aspart (novoLOG ASPART) SLIDING SCALE If C... ACHS SC 03/13/17 12:00 04/12/17 05:59 Acetaminophen (Tylenol Tab) 650 mg Q6H PO 03/13/17 20:00 04/12/17 19:59 03/14/17 13:55 650 MG Polyethylene (Miralax Powder Packet) 17 gm DAILY PRN PO 03/13/17 18:00 04/12/17 17:59 03/13/17 21:01 17 GM
--- NOTE | 2017-03-26 08:20 | Discharge Summary ---
Orthopedic Discharge Summary Admission Date/Reason March 12, 2017 at 21:15 Right Proximal Humerus Fracture. Discharge Date/Disposition March 14, 2017 Home with services Diagnosis Principal Diagnosis: Right proximal humerus and midshaft humerus fracture Medication Reconciliation New Medications: Acetaminophen (Tylenol Extra Strength) 500 Mg Tab 1000 MG PO Q8 for 10 Days, 0 Refills Enoxaparin (Enoxaparin Sodium) 40 Mg/0.4 Ml Inj 40 MG SQ QAM for 14 Days Oxycodone HCl (Oxycodone HCl) 5 Mg Tab 5-10 MG PO Q4H PRN for Pain, #60 TAB Continued Medications: Albuterol (Ventolin Hfa) 60 Puffs/5400 Mcg Aers 2 PUFFS INH Q4 PRN for SOB/Wheezing Albuterol Sulf (Proventil 0.083% 2.5MG/3ML) 2.5 Mg/3 Ml Nebu 1 VIAL NEB Q4 PRN for Wheezing, #75 Benzonatate (Benzonatate) 100 Mg Cap 100 MG PO TID PRN for Cough for 20 Days, #20 CAP Biotin (Hard Nails) 2.5 Mg Cap 2.5 MG PO DAILY Calcium Carbonate-Vitamin D (Calcium + D3 600-200 mg-Unit) 1 Tab Tab 1 TAB PO QAM Ferrous Sulfate (Kp Ferrous Sulfate) 325 Mg Tab 1 TAB PO DAILY for 30 Days, #30 TAB 3 Refills Furosemide (Lasix) 20 Mg Tab 20 MG PO 5XWK for 30 Days, #30 TAB Loratadine (Claritin) 10 Mg Tab 10 MG PO DAILY Losartan Potassium (Losartan Potassium) 25 Mg Tab 25 MG PO DAILY for 30 Days, #30 TAB first dose on 12/11 Magnesium Oxide (Mag-Ox) 400 Mg Tab 400 MG PO DAILY, TAB Metformin Hcl (Glucophage) 500 Mg Tab 500 MG PO BID, TAB Metoprolol Succinate (Metoprolol Succinate ER) 25 Mg Tabcr 25 MG PO DAILY, #90 Omeprazole (Prilosec) 20 Mg Capcr 20 MG PO BID Spironolactone (Spironolactone) 25 Mg Tab 25 MG PO QAM, #90 Zoledronic Acid (Reclast) 5 Mg/100 Ml Inj 5 MG INJ YEARLY [flovent] () 220 MCG INH BID Admission Physical Exam As per Admitting History & Physical. Hospital Course The patient was admitted on 5.3.17 for pain control after a right humerus fx. She was monitored over the next 2 days to control her pain while she stayed in her splint and sling. She was then d/c'd home on 03.14.17 with instructions to follow up in 1 week. Discharge Instructions Please refer to the electronic Patient Visit Report (Discharge Instructions) for additional information.
== END 2017-03-14 17:15 | disposition home health service (06) | DRG 563 ==
LOC: ENRESERVTM → ENRESERVDT → C.EDB 15:28 → C.MSN 21:15
PROVIDERS: ADMIT Orthopaedic Surgery Sports Medicine; ATTEND Orthopaedic Surgery Sports Medicine
DX: S42.341A Displaced spiral fracture of shaft of humerus, right arm, initial encounter for closed fracture (principal); I50.32 Chronic diastolic (congestive) heart failure; S42.251A Displaced fracture of greater tuberosity of right humerus, initial encounter for closed fracture; W01.198A Fall on same level from slipping, tripping and stumbling with subsequent striking against other object, initial encounter; Y92.008 Other place in unspecified non-institutional (private) residence as the place of occurrence of the external cause; G89.11 Acute pain due to trauma; R91.8 Other nonspecific abnormal finding of lung field; M19.011 Primary osteoarthritis, right shoulder; I11.0 Hypertensive heart disease with heart failure; K21.9 Gastro-esophageal reflux disease without esophagitis; E11.9 Type 2 diabetes mellitus without complications; M81.0 Age-related osteoporosis without current pathological fracture; Z86.718 Personal history of other venous thrombosis and embolism; Z79.51 Long term (current) use of inhaled steroids; Z79.84 Long term (current) use of oral hypoglycemic drugs; Z79.899 Other long term (current) drug therapy

== ENCOUNTER → 2017-10-10 | Outpatient (CLI) | payer OTHER ==
[~2017-10-10] MED LIST changes: +ACET-1138 PO; +ALBINS/ NEB; -ALBUAER19 INH; +CALC-388 PO; -CALC-5 PO; -DXY100 PO; -FLUT220A INH; +LVNIS40 SQ; -PRD10 PO; +PRVHFAIN INH; +RXC5 PO; +SPR25 PO; +TPRSR/25 PO; -TPRSR25 PO; +ZOLE5INJ INJ; +flovent INH
--- NOTE | 2017-10-10 13:55 | MAMMOGRAPHY REPORT ---
BILATERAL DIGITAL SCREENING MAMMOGRAM WITH CAD: 10/10/2017 CLINICAL HISTORY: Routine screening. Patient has no complaints. TECHNIQUE: Current study was also evaluated with a Computer Aided Detection (CAD) system. Bilateral CC and MLO views were obtained. COMPARISON: Comparison is made to exams dated: 05/15/2016 mammogram, 05/12/2015 mammogram, 05/11/2014 mamm ogram, 05/10/2013 mammogram, 05/08/2012 mammogram, and 05/02/2010 mammogram - [facility] BREAST COMPOSITION: There are scattered areas of fibroglandular density in both breasts. FINDINGS: No suspicious masses, calcifications, or areas of architectural distortion are noted in ei ther breast. There has been no significant interval change compared to prior exams. Scattered bilater al benign-appearing calcifications are not significantly changed. IMPRESSION: ACR BI-RADS CATEGORY 2: BENIGN There is no mammographic evidence of malignancy. A 1 year screening mammogram is recommended. The pa tient will receive written notification of the results. Approximately 10% of breast cancers are not detected with mammography. A negative mammographic report should not delay biopsy if a clinically suggestive mass is present. Mattie Bojorquez M.D. ah/:10/10/2017 12:29:22 [employer]: Krissy NÚÑEZ(Daryl)(Alla)(BD), [facility] letter sent: Normal 1/2 BI-RADS Code: ACR BI-RADS Category 2: Benign
== END | disposition home or self-care (01) ==
LOC: C.MAMM 11:45
PROVIDERS: ATTEND Obstetrics & Gynecology
DX: Z12.31 Encounter for screening mammogram for malignant neoplasm of breast (principal)

== ENCOUNTER 2018-04-01 09:40 | Emergency (ER) | payer OTHER ==
[~2018-04-01] VITALS: Ht 156.2 cm; Wt 74.3 kg
[2018-04-01 09:50] VITALS: TEMP 37; Ht 156.2 cm; Wt 74.3 kg
[2018-04-01] MEDS ORDERED: CHOL4POW3 PO (10:14)
[2018-04-01] MEDS ORDERED: LOSA1TAB PO (10:21)
[2018-04-01] MEDS ORDERED: ASPI81TA28 PO (10:21)
[2018-04-01] MEDS ORDERED: FURO-85 PO (10:21)
--- NOTE | 2018-04-01 10:23 | EMERGENCY ROOM VISIT NOTE ---
History Report prepared by Mikala: Chucho Person Under the Supervision of: Dr. Tony Thomas M.D. First contact with patient: 10:02 Chief Complaint: SHORTNESS OF BREATH Stated Complaint: SOB, COUGHING Nursing Triage Summary: Patient c/o of shortness of breath and cough since Friday. Patient states "I have a hx. of CHF and am concerned." History of Present Illness The patient is a 72 year old white female with a past medical history of a known pericardial effusion, CHF, asthma, DM type 2, dyslipidemia, HTN, GERD, DVT , lumbar stenosis, osteoporosis, pancreatitis who presents to the ED with a cc of worsening shortness of breath beginning three days ago. Pt notes a history of CHF, and her symptoms feel very similar. She states she cannot lay flat. Positive dry cough, drinking more water, chest tightness. Negative eating more salt, missing medication, changing medication, urinary symptoms, swelling in legs, weight gain, chest pain, history of smoking, nausea, vomiting, abdominal pain, trouble defecating, taking blood thinners. Source of History: patient Onset: three days ago Quality: other (SOB) Timing: worsening Modifying Factors (Worsening): other (laying flat) Associated Symptoms: + cough (dry), No chest pain, No nausea, No vomiting, No abdominal pain, No urinary symptoms Note: Associated symptoms: chest tightness, drinking more water Denies: eating more salt, missing medication, changing medication, swelling in legs, weight gain, trouble defecating, taking blood thinners. Review of Systems See HPI for pertinent positives and negatives. A total of ten systems were reviewed and were otherwise negative. Past Medical & Surgical Medical Problems: (1) Asthma (2) Munguia's esophagus (3) Benign neoplasm of colon (4) Diabetes mellitus, type 2 (5) Dyslipidemia (6) Essential hypertension (7) GERD (gastroesophageal reflux disease) (8) History of DVT (deep vein thrombosis) (9) History of pancreatitis (10) History of vertebral compression fracture (11) Lumbar stenosis with neurogenic claudication (12) Osteoporosis (13) Statin intolerance Surgical Problems: (1) Status post cholecystectomy Family History Cancer Diabetes mellitus Gallbladder disease Heart disease Hypertension Social History Smoking Status: Never Smoker Alcohol Use: occasionally Marital Status: Housing Status: lives with family Occupation Status: retired Current/Historical Medications Scheduled Acetaminophen (Tylenol Extra Strength), 1,000 MG PO Q8 Aspirin (Aspirin Ec), 81 MG PO DAILY Benzonatate (Tessalon Perles), 100 MG PO TID Biotin (Hard Nails), 2.5 MG PO DAILY Cholestyramine (Cholestyramine), 2 GM PO BID Furosemide (Lasix), 20 MG PO BID Loratadine (Claritin), 10 MG PO DAILY Losartan Potassium (Cozaar), 12.5 MG PO DAILY Magnesium Oxide (Mag-Ox), 400 MG PO DAILY Metoprolol Succinate (Metoprolol Succinate ER), 50 MG PO DAILY Omeprazole (Prilosec), 20 MG PO DAILY Spironolactone (Spironolactone), 25 MG PO QAM Scheduled PRN Albuterol (Ventolin Hfa), 2 PUFFS INH Q4 PRN for SOB/Wheezing Albuterol Sulf (Proventil 0.083% 2.5MG/3ML), 1 VIAL NEB Q4 PRN for Wheezing Allergies Coded Allergies: Ciprofloxacin (Verified Allergy, Unknown, rash, 04/01/18) pt Lisinopril (Verified Adverse Reaction, Unknown, COUGH, 04/01/18) Statins (Verified Adverse Reaction, Unknown, joint and muscle pains, ) Physical Exam Vital Signs Date Time Temp Pulse Resp B/P (MAP) Pulse Ox O2 Delivery O2 Flow Rate FiO2 04/01/18 15:35 82 18 118/89 94 Room Air 04/01/18 14:25 80 18 142/93 97 Room Air 04/01/18 13:30 84 18 124/76 94 Room Air 04/01/18 11:48 80 18 102/84 97 Room Air 04/01/18 10:57 80 16 124/77 95 Room Air 04/01/18 10:56 95 Nasal Cannula 04/01/18 10:53 80 04/01/18 09:50 37.0 84 18 149/86 97 Room Air Physical Exam GENERAL: Awake, alert, well-appearing, NAD, wearing glasses HENT: Normocephalic, atraumatic. EYES: Normal conjunctiva. Sclera non-icteric. PERRL. No anisocoria. NECK: Supple. No nuchal rigidity. FROM. RESPIRATORY: CTAB, no rhonchi, wheezing, crackles CARDIAC: RRR, no MRG ABDOMEN: Soft, NTND, BS+ MSK: No chest wall TTP, no LE edema. Left leg is shorter compared to right - consistent with previous hip fracture. No calf pain. NEURO: GCS 15, CN 2-12 intact, moves all 4s on command SKIN: No rash or jaundice noted. Medical Decision & Procedures ER Provider Diagnostic Interpretation: X-ray: Per my interpretation, radiologist review. CHEST ONE VIEW PORTABLE HISTORY: 72 years-old Female EVALUATE RESPIRATORY DISTRESS.DYSPNEA acute respiratory distress COMPARISON: Chest radiograph 03/12/2017, CT chest 03/26/2017 TECHNIQUE: Portable AP view of the chest FINDINGS: Cardiac silhouette is mildly enlarged, unchanged. Atherosclerosis of the aorta. No pneumothorax, pleural effusion, focal airspace consolidation or overt pulmonary edema. Minimal left basilar atelectasis/scarring. Previously noted solid nodules of the lung bases seen on chest CT are not visualized. Degenerative changes of the shoulders and spine. Prior cholecystectomy. IMPRESSION: No acute process. The above report was generated using voice recognition software. It may contain grammatical, syntax or spelling errors. Electronically signed by: Rubens Loredo M.D. 04/01/2018 10:51 AM Dictated Date/Time: 04/01/2018 10:49 AM Laboratory Results 04/01/18 10:40 Red Blood Count 4.31, Mean Corpuscular Volume 94.9, Mean Corpuscular Hemoglobin 32.5, Mean Corpuscular Hemoglobin Concent 34.2, Mean Platelet Volume 9.6, Neutrophils (%) (Auto) 54.4, Lymphocytes (%) (Auto) 27.8, Monocytes (%) (Auto) 10.2, Eosinophils (%) (Auto) 6.0, Basophils (%) (Auto) 1.3, Neutrophils # (Auto ) 4.16, Lymphocytes # (Auto) 2.13, Monocytes # (Auto) 0.78, Eosinophils # (Auto ) 0.46, Basophils # (Auto) 0.10 04/01/18 10:40 Test 04/01/18 10:40 White Blood Count 7.65 K/uL (4.8-10.8) Red Blood Count 4.31 M/uL (4.2-5.4) Hemoglobin 14.0 g/dL (12.0-16.0) Hematocrit 40.9 % (37-47) Mean Corpuscular Volume 94.9 fL (80-100) Mean Corpuscular Hemoglobin 32.5 pg (25-34) Mean Corpuscular Hemoglobin Concent 34.2 g/dl (32-36) Platelet Count 220 K/uL (130-400) Mean Platelet Volume 9.6 fL (7.4-10.4) Neutrophils (%) (Auto) 54.4 % Lymphocytes (%) (Auto) 27.8 % Monocytes (%) (Auto) 10.2 % Eosinophils (%) (Auto) 6.0 % Basophils (%) (Auto) 1.3 % Neutrophils # (Auto) 4.16 K/uL (1.4-6.5) Lymphocytes # (Auto) 2.13 K/uL (1.2-3.4) Monocytes # (Auto) 0.78 K/uL (0.11-0.59) Eosinophils # (Auto) 0.46 K/uL (0-0.5) Basophils # (Auto) 0.10 K/uL (0-0.2) RDW Standard Deviation 45.7 fL (36.4-46.3) RDW Coefficient of Variation 13.1 % (11.5-14.5) Immature Granulocyte % (Auto) 0.3 % Immature Granulocyte # (Auto) 0.02 K/uL (0.00-0.02) Prothrombin Time 10.4 SECONDS (9.0-12.0) Prothromb Time International Ratio 1.0 (0.9-1.1) Activated Partial Thromboplast Time 24.3 SECONDS (21.0-31.0) Partial Thromboplastin Ratio 0.9 Anion Gap 7.0 mmol/L (3-11) Est Creatinine Clear Calc Drug Dose 51.9 ml/min Estimated GFR () 73.5 Estimated GFR (Non- 63.4 BUN/Creatinine Ratio 17.9 (10-20) Calcium Level 9.6 mg/dl (8.5-10.1) Phosphorus Level 2.6 mg/dl (2.5-4.9) Magnesium Level 1.8 mg/dl (1.8-2.4) Troponin I < 0.015 ng/ml (0-0.045) Pro-B-Type Natriuretic Peptide 47 pg/ml (0-900) Laboratory results reviewed by me Medications Administered Medications (Trade) Dose Ordered Sig/Guillermo Route Start Time Stop Time Status Last Admin Dose Admin Benzonatate (Tessalon Perles Cap) 100 mg NOW ONCE PO 04/01/18 12:00 04/01/18 12:01 DC 04/01/18 12:16 100 MG Menthol (Nice Zhang) 1 zhang NOW STAT ZHANG 04/01/18 11:55 04/01/18 11:57 DC 04/01/18 12:16 1 ZHANG Albuterol/ Ipratropium (Duoneb) 3 ml ONE STAT INH 04/01/18 11:55 04/01/18 11:57 DC 04/01/18 12:16 3 ML Perflutren Lipid Microsphere (Definity) 2 ml ONE ONCE IV 04/01/18 13:55 04/01/18 13:56 DC 04/01/18 13:55 2 ML ECG Per My Interpretation Indication: SOB/dyspnea Rate (beats per minute): 79 Rhythm: normal sinus Findings: Q waves (lead III and AVF), T-wave inversion (V2), left axis deviation, other (Normal intervals. ) Comparison ECG Date: 03/12/17 Change: TWI in V2 is new Q-waves are old ED Course 1015: The patient was evaluated in room B02. A complete history and physical exam was performed. 1151: I reevaluated the patient. She is still complaining of a cough. 1248: I discussed the patient's case with Dr. Espinal, Cardiology. He is going to perform and echocardiogram on the patient. 1411: I reevaluated the patient. Her echocardiogram was completed. 1458: Paged Dr. Espinal, Cardiology. 1520: I spoke with Dr. Espinal again. He states the findings appear old, and she has not new findings. He reports she is suitable for outpatient. 1524: I reevaluated the patient. Discussed results and discharge instructions: she verbalized understanding and agreement. The patient is ready for discharge. Medical Decision Nursing notes reviewed. Ancillary studies and prior records reviewed. The patient is a 72 year old white female with a past medical history of a known pericardial effusion, CHF, asthma, DM type 2, dyslipidemia, HTN, GERD, DVT , lumbar stenosis, osteoporosis, pancreatitis who presents to the ED with a cc of worsening shortness of breath beginning three days ago. Differential diagnosis: Etiologies such as infections, reactive airway disease, pneumonia, pneumothorax , COPD, CHF, cardiac ischemia, pulmonary embolism, musculoskeletal, gastrointestinal, as well as others were entertained. Patient was seen and evaluated the bedside. Patient was complaining of some exertional dyspnea, orthopnea. Patient denies any chest pain. Patient is not noted any major weight gain. The patient states that she has been sipping some water secondary to her cough. Patient has history of GERD. Patient states that she has taken all her medications and has not had any acute issues. The patient did have a prior questionable DVT versus superficial vein thrombosis. The patient does not appear very volume overloaded on exam. Patient did have blood work completed, EKG, troponin, BNP, chest x-ray. Patient 's chest x-ray is unchanged from prior. The patient's troponin is not elevated. BNP is not elevated. Chest x-ray did not show any evidence of any focal consolidation. White blood cell count is normal. I did inform the patient the findings and the patient is at bedside echo performed given her prior history of a pericardial effusion. I did discuss case with the on-call relationship advisor who recommended obtaining an echo. The echo was obtained and the relationship advisor read it. He believes that this is a very chronic finding. He did also notice that the RV was enlarged but also stated this is likely chronic in nature. Given the patient's history physical fairly unchanged EKG and negative troponin with improvement with duo nebs and other medications likely ACS. Given the improvement of her symptoms also I believe less likely PE. Patient again was feeling symptomatically improved after her DuoNeb and other medications. Patient was told to continue this at home. Patient was told to follow-up with a relationship advisor and PCP. Patient told return if she any worsening symptoms. Patient was given strict follow-up, discharge, and return precautions. All questions were answered. Patient was deemed suitable for outpatient follow-up at this time. Patient agreed with the plan of care and was safely discharged home. Medication Reconcilliation Current Medication List: was personally reviewed by me Blood Pressure Screening Patient's blood pressure: Normal blood pressure Blood pressure disposition: Did not require urgent referral Consults Time Called: 1234 Consulting Physician: Dr. Espinal, Cardiology Returned Call: [phone] I discussed the patient's case with Dr. Espinal, Cardiology. He is going to perform and echocardiogram on the patient. [id number]: Paged Dr. Espinal, Cardiology. 1520: I spoke with Dr. Espinal again. He states the findings appear old, and she has not new findings. He reports she is suitable for outpatient. Impression Primary Impression: Bronchitis Additional Impression: Dyspnea Scribe Attestation The scribe's documentation has been prepared under my direction and personally reviewed by me in its entirety. I confirm that the note above accurately reflects all work, treatment, procedures, and medical decision making performed by me. Departure Information Dispostion Home / Self-Care Prescriptions Albuterol Sulf (PROVENTIL 0.083% 2.5MG/3ML) 2.5 Mg/3 Ml Nebu 2.5 MG INH QID for 5 Days, #60 ML Prov: Tony Thomas M.D. 04/01/18 Benzonatate (TESSALON PERLES) 100 Mg Cap 100 MG PO TID for 7 Days, #21 CAP Prov: Tony Thomas M.D. 04/01/18 Referrals Kaz Andersen MD (PCP) Forms HOME CARE DOCUMENTATION FORM, IMPORTANT VISIT INFORMATION Patient Instructions ED Dyspnea Shortness of Breath, My [facility] Additional Instructions Please return to the emergency department if you have worsening or recurrent symptoms not amenable to at-home treatment. Please call for a follow-up appointment with her primary care physician. Please take your medications as prescribed. If you have other concerns and/or complaints please feel free to also call your primary care physician's office or return the ED for further evaluation, management, and treatment. You may take tylenol 1000 mg every 6 hours as needed for pain/fever unless told by your physician to not take it or have liver problems Take your medications as prescribed. Please use the inhalers 2 puffs every 4 hours the first day, then 2 puffs every 6 hours second day, 1 puff every 4 hours the third day, and then 1 puff every 6 hours the fourth day. You may then use as needed. Make sure to use your inhaler with a spacer when you use it. You have been examined and treated today on an emergency basis only. This is not a substitute for, or an effort to provide, complete comprehensive medical care. It is impossible to recognize and treat all injuries or illnesses in a single emergency department visit. It is therefore important that you follow up closely with [facility], your PCP, and/or your specialist(s). Call as soon as possible for an appointment. Thank you for your time and consideration. I look forward to speaking with you again soon. Please don't hesitate to call us if you have any questions. Problem Qualifiers
[2018-04-01 10:51] LABS: BASO % 1.3 %; EOS ABS # 0.46 K/uL (0-0.5); HEMATOCRIT 40.9 % (37-47); IG# 0.02 K/uL (0.00-0.02); LYMPH % 27.8 %; LYMPH ABS # 2.13 K/uL (1.2-3.4); MEAN CELL VOLUME 94.9 fL (80-100); MEAN CORPUSCULAR HEMOGLOBIN 32.5 pg (25-34); MEAN CORPUSCULAR HGB CONC 34.2 g/dl (32-36); MEAN PLATELET VOLUME 9.6 fL (7.4-10.4); MONO % 10.2 %; MONO ABS # 0.78 K/uL (0.11-0.59); NEUT % 54.4 %; NEUT ABS # 4.16 K/uL (1.4-6.5); PLATELET COUNT 220 K/uL (130-400); RED CELL DISTRIBUTION WIDTH CV 13.1 % (11.5-14.5); RED CELL DISTRIBUTION WIDTH SD 45.7 fL (36.4-46.3); WHITE BLOOD COUNT 7.65 K/uL (4.8-10.8)
--- NOTE | 2018-04-01 10:52 | DIAGNOSTIC IMAGING REPORT ---
CHEST ONE VIEW PORTABLE HISTORY: 72 years-old Female EVALUATE RESPIRATORY DISTRESS.DYSPNEA acute respiratory distress COMPARISON: Chest radiograph 03/12/2017, CT chest 03/26/2017 TECHNIQUE: Portable AP view of the chest FINDINGS: Cardiac silhouette is mildly enlarged, unchanged. Atherosclerosis of the aorta. No pneumothorax, pleural effusion, focal airspace consolidation or overt pulmonary edema. Minimal left basilar atelectasis/scarring. Previously noted solid nodules of the lung bases seen on chest CT are not visualized. Degenerative changes of the shoulders and spine. Prior cholecystectomy. IMPRESSION: No acute process. The above report was generated using voice recognition software. It may contain grammatical, syntax or spelling errors. Electronically signed by: Rubens Loredo M.D. 04/01/2018 10:51 AM Dictated Date/Time: 04/01/2018 10:49 AM
[2018-04-01 10:56] VITALS: O2SAT 95
[2018-04-01 11:01] LABS: PTT PATIENT 24.3 SECONDS (21.0-31.0)
[2018-04-01 11:20] LABS: BLOOD UREA NITROGEN 16 mg/dl (7-18); CALCIUM 9.6 mg/dl (8.5-10.1); CARBON DIOXIDE 24 mmol/L (21-32); GLUCOSE 106 mg/dl (70-99); PHOSPHORUS 2.6 mg/dl (2.5-4.9); POTASSIUM 3.9 mmol/L (3.5-5.1); SODIUM 138 mmol/L (136-145)
[2018-04-01] MEDS ORDERED: COUGH DROP (SUGAR FREE) LOZ 24 LOZ/1 BOX LOZ STA (11:55)
[2018-04-01] MEDS ORDERED: ALBUT/IPRATROP 3MG/0.5MG NEB 3 ML VIAL INH STA (11:55)
[2018-04-01] MEDS ORDERED: BENZONATATE 100MG CAP PO ONE (12:00)
[2018-04-01] MEDS ORDERED: PERFLUTREN LIPID MICROSPHERE (DEFINITY) IV ONE (13:55)
[2018-04-01 15:35] VITALS: BP 118/89; PULSE 82; O2SAT 94
--- NOTE | 2018-04-01 15:36 | ECHOCARDIOGRAM REPORT ---
*NOTICE TO RECEIVING LIBERTARIAN AGENCY This information is strictly Confidential and protected under [place] law. [place] law prohibits you from making any further disclosure of this information unless further disclosure is expressly permitted by the written consent of the person to whom it pertains or is authorized by law. A general authorization for the release of medical or other information is not sufficient for this purpose. Hospital accepts no responsibility if the information is made available to any other person, INCLUDING THE PATIENT. Interpretation Summary * Name: KAYLYNN WILKINSON Study Date: 04/01/2018 01:11 PM BP: 124/76 mmHg * Patient Location: C.EDB HR: 83 * : 1945 (M/d/yyyy) Gender: Female Height: 61 in * Age: 72 yrs Ethnicity: [place] Weight: 163 lb * Ordering Physician: Toño Espinal * Referring Physician: Self, Referred * Performed By: Deann Morrissey RDCS * * Reason For Study: Shortness of Breath, History of Pericardial Effusion * BSA: 1.7 m2 * The study was technically adequate. * -- Conclusions -- * There is mild concentric left ventricular hypertrophy. * The left ventricular wall motion is normal. * No regional wall motion abnormalities noted. * Left ventricular systolic function is normal. * The LV Ejection Fraction = 65-70%. * The right ventricle is mildly dilated. * The right ventricular systolic function is normal. * Doppler findings do not suggest pulmonary hypertension. * There is an echodensity in the pericardial space most prominent adjacent to the apical portion of the right ventricle consistent with pericardial fat or chronic organized pericardial effusion. * Compared to the images obtained on the prior study dated 12/09/2016, 06/08/2012, and 07/04/2009, this finding is unchanged. * There is no echocardiographic evidence of tamponade. * The inferior vena cava is small and collapses appropriately with inspiration, and findings do not suggest constrictive pericarditis. * There is no significant valvular heart disease. Procedure Details * A complete two-dimensional transthoracic echocardiogram was performed (2D, M-mode, Doppler and color flow Doppler). * The study was technically difficult. * The study was technically difficult, but visualization was adequate with the administration of Definity ultrasound contrast. * A contrast injection of Definity was performed to improve assessment of LV function. * Contrast was injected into an intravenous site in the right arm. * One vial of Definity ultrasound contrast was diluted in normal saline to a total volume of 10 ml. A total of '1' ml of solution was administered during imaging. * Lot # [id number] of Definity utilized for procedure. * Expiration date 1Apr19. * The attending nurse who injected the contrast agent was Amanda Anderson RN. Left Ventricle * The left ventricle is normal in size. * There is mild concentric left ventricular hypertrophy. * Ejection Fraction = 65-70%. * Left ventricular systolic function is normal. * The left ventricular wall motion is normal. * No regional wall motion abnormalities noted. Right Ventricle * The right ventricle is mildly dilated. * The right ventricular systolic function is normal. Atria * The left atrial size is normal. * Right atrial size is normal. * There is no evidence of atrial septal defect, but resolution does not allow assessment for a patent foramen ovale. Mitral Valve * The mitral valve is normal. * There is no mitral valve stenosis. * Significant mitral regurgitation is absent. Tricuspid Valve * The tricuspid valve is normal. * There is no tricuspid stenosis. * Significant tricuspid regurgitation is absent. * Doppler findings do not suggest pulmonary hypertension. Aortic Valve * The aortic valve is trileaflet. * Aortic valve sclerosis mild, without significant aortic valvular stenosis. * Aortic stenosis is absent. * There is no significant aortic regurgitation. Pulmonic Valve * The pulmonary valve is not well seen, but the Doppler examination is normal without significant regurgitation or stenosis. Great Vessels * The aortic root and proximal ascending aorta are normal sized. Pericardium/Pleural * There is an echodensity in the pericardial space most prominent adjacent to the apical portion of the right ventricle consistent with organized chronic pericardial effusion or perhaps pericardial fat. Compared to the images obtained on the prior study dated 12/09/2016, 06/08/2012, and 07/04/2009, this finding is unchanged. There is no echocardiographic evidence of tamponade on. The inferior vena cava is small and collapses appropriately with inspiration, and findings do not suggest constrictive pericarditis. Great Vessels * Normal inferior vena cava diameter and respiratory variation suggests normal central venous pressure. Left Ventricular Diastolic Function * Grade I diastolic dysfunction, (abnormal relaxation pattern). MMode 2D Measurements and Calculations IVSd 1.3 cm IVSs 1.4 cm LVIDd 3.7 cm LVIDs 2.5 cm LVPWd 1.1 cm LVPWs 1.5 cm IVS/LVPW 1.2 FS 31.8 % EDV(Teich) 58.8 ml ESV(Teich) 23.1 ml EF(Teich) 60.7 % EDV(cubed) 51.4 ml ESV(cubed) 16.3 ml EF(cubed) 68.3 % % IVS thick 12.2 % % LVPW thick 39.9 % LV mass(C)d 143.4 grams LV mass(C)dI 82.8 grams/m\S\2 LV mass(C)s 123.0 grams LV mass(C)sI 71.0 grams/m\S\2 SV(Teich) 35.7 ml SI(Teich) 20.6 ml/m\S\2 SV(cubed) 35.2 ml SI(cubed) 20.3 ml/m\S\2 Ao root diam 3.4 cm Ao root area 9.0 cm\S\2 ACS 1.6 cm LA dimension 2.9 cm LA/Ao 0.86 LVAd ap4 23.9 cm\S\2 LVLd ap4 7.7 cm EDV(MOD-sp4) 66.5 ml EDV(sp4-el) 63.4 ml LVAs ap4 13.0 cm\S\2 LVLs ap4 6.0 cm ESV(MOD-sp4) 25.1 ml ESV(sp4-el) 23.8 ml EF(MOD-sp4) 62.2 % EF(sp4-el) 62.5 % LVAd ap2 19.1 cm\S\2 LVLd ap2 6.9 cm EDV(MOD-sp2) 46.4 ml EDV(sp2-el) 44.8 ml LVAs ap2 8.6 cm\S\2 LVLs ap2 5.2 cm ESV(MOD-sp2) 12.5 ml ESV(sp2-el) 12.0 ml EF(MOD-sp2) 73.0 % EF(sp2-el) 73.2 % LVLd %diff -11.39 % EDV(MOD-bp) 58.1 ml LVLs %diff -15.72 % ESV(MOD-bp) 19.1 ml EF(MOD-bp) 67.2 % SV(MOD-sp4) 41.3 ml SI(MOD-sp4) 23.9 ml/m\S\2 SV(MOD-sp2) 33.9 ml SI(MOD-sp2) 19.6 ml/m\S\2 SV(MOD-bp) 39.0 ml SI(MOD-bp) 22.5 ml/m\S\2 SV(sp4-el) 39.6 ml SI(sp4-el) 22.9 ml/m\S\2 SV(sp2-el) 32.8 ml SI(sp2-el) 19.0 ml/m\S\2 Doppler Measurements and Calculations MV E max isaiah 58.5 cm/sec MV A max isaiah 88.3 cm/sec MV E/A 0.66 MV dec time 0.19 sec Ao V2 max 110.4 cm/sec Ao max PG 4.9 mmHg Ao max PG (full) 2.6 mmHg LV V1 max PG 2.2 mmHg LV V1 max 74.7 cm/sec PA V2 max 62.0 cm/sec PA max PG 1.5 mmHg
[2018-04-01] MEDS ORDERED: BENZ-54 PO (15:58)
[2018-04-01] MEDS ORDERED: ALBINS/ INH (16:03)
[2018-04-03] MEDS ORDERED: NITR-5 PO (15:36)
== END 2018-04-01 16:00 | disposition home or self-care (01) ==
LOC: C.EDB 09:43
DX: J40 Bronchitis, not specified as acute or chronic (principal); E78.5 Hyperlipidemia, unspecified; I10 Essential (primary) hypertension; K21.9 Gastro-esophageal reflux disease without esophagitis; Z79.82 Long term (current) use of aspirin; Z86.79 Personal history of other diseases of the circulatory system; Z87.09 Personal history of other diseases of the respiratory system; Z86.718 Personal history of other venous thrombosis and embolism; Z87.828 Personal history of other (healed) physical injury and trauma; Z82.49 Family history of ischemic heart disease and other diseases of the circulatory system; Z88.1 Allergy status to other antibiotic agents; Z88.8 Allergy status to other drugs, medicaments and biological substances

== ENCOUNTER 2018-04-04 15:02 | Emergency (ER) | payer OTHER ==
[~2018-04-04] VITALS: Ht 157.5 cm; Wt 73.5 kg
[~2018-04-04 15:02] MED LIST changes: +ALBINS/ INH; +ASPI81TA28 PO; +BENZ-54 PO; -BENZ100C7 PO; -CALC-388 PO; +CHOL4POW3 PO; -CZR25 PO; -FERR1TAB13 PO; +FURO-85 PO; -FURO20TA PO; -GLC/500 PO; +LOSA1TAB PO; -LVNIS40 SQ; +NITR-5 PO; -RXC5 PO; -ZOLE5INJ INJ; -flovent INH
[2018-04-04 15:06] VITALS: TEMP 36.6; Ht 157.5 cm; Wt 73.5 kg
[2018-04-04] MEDS ORDERED: METHYLPREDNISOLONE 125 MG VIAL IV STA (15:35)
[2018-04-04] MEDS ORDERED: ALBUT/IPRATROP 3MG/0.5MG NEB 3 ML VIAL INH STA (15:35)
[2018-04-04] MEDS ORDERED: OPTIRAY 320 IV PRN (16:00)
[2018-04-04 16:02] LABS: BASO % 0.1 %; BASO ABS # 0.02 K/uL (0-0.2); EOS % 2.4 %; EOS ABS # 0.37 K/uL (0-0.5); HEMATOCRIT 41.1 % (37-47); HEMOGLOBIN 14.3 g/dL (12.0-16.0); IG# 0.05 K/uL (0.00-0.02); LYMPH % 3.9 %; LYMPH ABS # 0.61 K/uL (1.2-3.4); MEAN CELL VOLUME 94.5 fL (80-100); MEAN CORPUSCULAR HEMOGLOBIN 32.9 pg (25-34); MEAN CORPUSCULAR HGB CONC 34.8 g/dl (32-36); MEAN PLATELET VOLUME 9.3 fL (7.4-10.4); MONO % 5.1 %; MONO ABS # 0.79 K/uL (0.11-0.59); NEUT % 88.2 %; NEUT ABS # 13.79 K/uL (1.4-6.5); PLATELET COUNT 199 K/uL (130-400); WHITE BLOOD COUNT 15.63 K/uL (4.8-10.8)
[2018-04-04 16:09] VITALS: O2SAT 99
[2018-04-04 16:25] LABS: ALBUMIN 3.8 gm/dl (3.4-5.0); ALKALINE PHOSPHATASE 55 U/L (45-117); ALT/SGPT 47 U/L (12-78); AST/SGOT 36 U/L (15-37); BLOOD UREA NITROGEN 11 mg/dl (7-18); CALCIUM 9.2 mg/dl (8.5-10.1); CARBON DIOXIDE 23 mmol/L (21-32); CREATININE 1.07 mg/dl (0.60-1.20); GLUCOSE 152 mg/dl (70-99); POTASSIUM 3.7 mmol/L (3.5-5.1); SODIUM 133 mmol/L (136-145); TOTAL PROTEIN 8.3 gm/dl (6.4-8.2)
[2018-04-04 16:35] LABS: PTT PATIENT 25.8 SECONDS (21.0-31.0)
--- NOTE | 2018-04-04 16:43 | DIAGNOSTIC IMAGING REPORT ---
CT ANGIOGRAPHY OF THE CHEST, PULMONARY EMBOLUS PROTOCOL CLINICAL HISTORY: Difficulty breathing. Fever. COMPARISON STUDY: Chest CT March 26, 2017 and chest radiograph April 01, 2018. TECHNIQUE: Following IV administration of 93 mL of Optiray-320, helical axial images of the chest were obtained utilizing the pulmonary embolus protocol. Maximal intensity projections and sagittal and coronal reformats were viewed on an independent 3D workstation. IV contrast was administered without complication. A dose lowering technique was utilized adhering to the principles of ALARA. CT DOSE: 425.72 mGy.cm FINDINGS: No pulmonary emboli are identified. There is no evidence of thoracic aortic dissection. The heart is mildly enlarged. There is no pericardial effusion. There is a trace left pleural effusion but there is no pneumothorax. Numerous prominent nodules are unchanged from earlier exams. There is no consolidation. Mild interlobular septal thickening is noted. There are multiple old thoracic spine compression fractures. Upper abdomen is unremarkable. No pathologically enlarged thoracic lymph nodes are present. Prominent AP window lymph nodes are unchanged. IMPRESSION: 1. No pulmonary emboli identified although segmental and subsegmental pulmonary arteries suboptimally assessed due to respiratory motion artifact. 2. Mild interlobular septal thickening which suggests mild interstitial edema. 3. Mild cardiomegaly. 4. No change in numerous pulmonary nodules which are benign given stability. Electronically signed by: Lc Rodrigez M.D. 04/04/2018 4:41 PM Dictated Date/Time: 04/04/2018 4:31 PM
[2018-04-04] MEDS ORDERED: PRED20TA PO (17:04)
--- NOTE | 2018-04-04 17:05 | EMERGENCY ROOM VISIT NOTE ---
History Report prepared by Lindaiblana: Robbie Bhardwaj Under the Supervision of: Dr. Bin Thompson D.O. First contact with patient: 15:12 Chief Complaint: FEVER Stated Complaint: FEVER 103, CHILLS, TEMP, WAS JUST HERE WED History of Present Illness The patient is a 72 year old female who presents to the Emergency Room with complaints of worsening shortness of breath beginning six days ago. She also complains of mildly productive cough, fevers, chills and pain to her arms and legs. The patient was seen in the ED three days ago for similar symptoms and had negative testing. She was diagnosed with bronchitis and discharged home. She called her PCP yesterday due to having urinary symptoms and was given a prescription for Macrobid. The patient has a history of CHF. She denies leg swelling/pain. She has been using a Nebulizer at home as instructed. Source of History: patient Onset: Six days ago Quality: other (shortness of breath) Timing: worsening Associated Symptoms: + fevers, + chills, + cough (mildly productive) Note: Positive: pain to her arms and legs. Negative: leg swelling. Review of Systems See HPI for pertinent positives & negatives. A total of 10 systems reviewed and were otherwise negative. Past Medical & Surgical Medical Problems: (1) Asthma (2) Munguia's esophagus (3) Benign neoplasm of colon (4) Diabetes mellitus, type 2 (5) Dyslipidemia (6) Essential hypertension (7) GERD (gastroesophageal reflux disease) (8) History of DVT (deep vein thrombosis) (9) History of pancreatitis (10) History of vertebral compression fracture (11) Lumbar stenosis with neurogenic claudication (12) Osteoporosis (13) Statin intolerance Surgical Problems: (1) Status post cholecystectomy Family History Cancer Diabetes mellitus Gallbladder disease Heart disease Hypertension Social History Smoking Status: Never Smoker Alcohol Use: occasionally Marital Status: Housing Status: lives with family Occupation Status: retired Current/Historical Medications Scheduled Acetaminophen (Tylenol Extra Strength), 1,000 MG PO Q8 Albuterol Sulf (Proventil 0.083% 2.5MG/3ML), 2.5 MG INH QID Aspirin (Aspirin Ec), 81 MG PO DAILY Benzonatate (Tessalon Perles), 100 MG PO TID Biotin (Hard Nails), 2.5 MG PO DAILY Cholestyramine (Cholestyramine), 2 GM PO BID Furosemide (Lasix), 20 MG PO BID Loratadine (Claritin), 10 MG PO DAILY Losartan Potassium (Cozaar), 12.5 MG PO DAILY Magnesium Oxide (Mag-Ox), 400 MG PO DAILY Metoprolol Succinate (Metoprolol Succinate ER), 50 MG PO DAILY Nitrofurantoin Monohyd Macrocr (Macrobid), 100 MG PO BID Omeprazole (Prilosec), 20 MG PO DAILY Spironolactone (Spironolactone), 25 MG PO QAM Scheduled PRN Albuterol (Ventolin Hfa), 2 PUFFS INH Q4 PRN for SOB/Wheezing Albuterol Sulf (Proventil 0.083% 2.5MG/3ML), 1 VIAL NEB Q4 PRN for Wheezing Allergies Coded Allergies: Ciprofloxacin (Verified Allergy, Unknown, rash, 04/04/18) pt Lisinopril (Verified Adverse Reaction, Unknown, COUGH, 04/04/18) Statins (Verified Adverse Reaction, Unknown, joint and muscle pains, ) Physical Exam Vital Signs Date Time Temp Pulse Resp B/P (MAP) Pulse Ox O2 Delivery O2 Flow Rate FiO2 04/04/18 16:26 106 18 124/78 94 Room Air 04/04/18 16:14 101 04/04/18 16:09 99 Nebulizer 04/04/18 15:06 36.6 113 20 121/67 95 Room Air Physical Exam CONSTITUTIONAL/VITAL SIGNS: Reviewed / noted above. GENERAL: Non-toxic in appearance. INTEGUMENTARY: Warm, dry, and [place]. HEAD: Normocephalic. EYES: without scleral icterus or trauma. ENT/OROPHARYNX: clear and moist. LYMPHADENOPATHY/NECK: Is supple without lymphadenopathy or meningismus. RESPIRATORY: Mild scattered wheezes bilaterally to auscultation. No retractions. No respiratory distress. CARDIOVASCULAR: Regular rate and rhythm. GI/ABDOMEN: Soft and nontender. No organomegaly or pulsatile mass. No rebound or guarding. Normal bowel sounds. EXTREMITIES: Warm and well perfused. BACK: No CVA tenderness. NEUROLOGICAL: Intact without focal deficits. PSYCHIATRIC: normal affect. MUSCULOSKELETAL: Normally developed with good muscle tone. Medical Decision & Procedures ER Provider Diagnostic Interpretation: Radiology results as stated below per my review and radiologist interpretation: CT ANGIOGRAPHY OF THE CHEST, PULMONARY EMBOLUS PROTOCOL FINDINGS: No pulmonary emboli are identified. There is no evidence of thoracic aortic dissection. The heart is mildly enlarged. There is no pericardial effusion. There is a trace left pleural effusion but there is no pneumothorax. Numerous prominent nodules are unchanged from earlier exams. There is no consolidation. Mild interlobular septal thickening is noted. There are multiple old thoracic spine compression fractures. Upper abdomen is unremarkable. No pathologically enlarged thoracic lymph nodes are present. Prominent AP window lymph nodes are unchanged. IMPRESSION: 1. No pulmonary emboli identified although segmental and subsegmental pulmonary arteries suboptimally assessed due to respiratory motion artifact. 2. Mild interlobular septal thickening which suggests mild interstitial edema. 3. Mild cardiomegaly. 4. No change in numerous pulmonary nodules which are benign given stability. Electronically signed by: Lc Rodrigez M.D. 04/04/2018 4:41 PM Laboratory Results 04/04/18 15:50 Red Blood Count 4.35, Mean Corpuscular Volume 94.5, Mean Corpuscular Hemoglobin 32.9, Mean Corpuscular Hemoglobin Concent 34.8, Mean Platelet Volume 9.3, Neutrophils (%) (Auto) 88.2, Lymphocytes (%) (Auto) 3.9, Monocytes (%) (Auto) 5.1, Eosinophils (%) (Auto) 2.4, Basophils (%) (Auto) 0.1, Neutrophils # (Auto) 13.79, Lymphocytes # (Auto) 0.61, Monocytes # (Auto) 0.79, Eosinophils # (Auto) 0.37, Basophils # (Auto) 0.02 04/04/18 15:50 Test 04/04/18 15:50 White Blood Count 15.63 K/uL (4.8-10.8) Red Blood Count 4.35 M/uL (4.2-5.4) Hemoglobin 14.3 g/dL (12.0-16.0) Hematocrit 41.1 % (37-47) Mean Corpuscular Volume 94.5 fL (80-100) Mean Corpuscular Hemoglobin 32.9 pg (25-34) Mean Corpuscular Hemoglobin Concent 34.8 g/dl (32-36) Platelet Count 199 K/uL (130-400) Mean Platelet Volume 9.3 fL (7.4-10.4) Neutrophils (%) (Auto) 88.2 % Lymphocytes (%) (Auto) 3.9 % Monocytes (%) (Auto) 5.1 % Eosinophils (%) (Auto) 2.4 % Basophils (%) (Auto) 0.1 % Neutrophils # (Auto) 13.79 K/uL (1.4-6.5) Lymphocytes # (Auto) 0.61 K/uL (1.2-3.4) Monocytes # (Auto) 0.79 K/uL (0.11-0.59) Eosinophils # (Auto) 0.37 K/uL (0-0.5) Basophils # (Auto) 0.02 K/uL (0-0.2) RDW Standard Deviation 45.0 fL (36.4-46.3) RDW Coefficient of Variation 13.0 % (11.5-14.5) Immature Granulocyte % (Auto) 0.3 % Immature Granulocyte # (Auto) 0.05 K/uL (0.00-0.02) Prothrombin Time 10.9 SECONDS (9.0-12.0) Prothromb Time International Ratio 1.0 (0.9-1.1) Activated Partial Thromboplast Time 25.8 SECONDS (21.0-31.0) Partial Thromboplastin Ratio 1.0 D-Dimer 960 ug/L FEU (0-500) Anion Gap 9.0 mmol/L (3-11) Est Creatinine Clear Calc Drug Dose 44.0 ml/min Estimated GFR () 59.6 Estimated GFR (Non- 51.5 BUN/Creatinine Ratio 9.8 (10-20) Calcium Level 9.2 mg/dl (8.5-10.1) Total Bilirubin 0.7 mg/dl (0.2-1) Aspartate Amino Transf (AST/SGOT) 36 U/L (15-37) Alanine Aminotransferase (ALT/SGPT) 47 U/L (12-78) Alkaline Phosphatase 55 U/L (45-117) Troponin I < 0.015 ng/ml (0-0.045) Total Protein 8.3 gm/dl (6.4-8.2) Albumin 3.8 gm/dl (3.4-5.0) Globulin 4.5 gm/dl (2.5-4.0) Albumin/Globulin Ratio 0.8 (0.9-2) Laboratory results as stated above per my review. Medications Administered Medications (Trade) Dose Ordered Sig/Guillermo Route Start Time Stop Time Status Last Admin Dose Admin Albuterol/ Ipratropium (Duoneb) 3 ml NOW STAT INH 04/04/18 15:35 04/04/18 15:37 DC 04/04/18 16:08 3 ML Methylprednisolone Sodium Succinate (Solu-Medrol IV) 125 mg NOW STAT IV 04/04/18 15:35 04/04/18 15:37 DC 04/04/18 16:08 125 MG ED Course 1524: Previous medical records were reviewed. The patient was evaluated in room C9. A complete history and physical examination was performed. 1535: Ordered Solu-Medrol 125 mg IV, DuoNeb 3 mL INH. 1650: On reevaluation, the patient is resting comfortably. I discussed the results and findings with the patient. She verbalized agreement of the treatment plan. She was discharged home. Medical Decision Differential diagnosis: Etiologies such as infections, reactive airway disease, pneumonia, pneumothorax , COPD, CHF, cardiac ischemia, pulmonary embolism, musculoskeletal, gastrointestinal, as well as others were entertained. This is a 72-year-old female who presents to the ED with a chief complaint of cough and shortness of breath. The patient was seen here a few days ago diagnosed with a bronchitis. At that time she had blood work, chest x-ray and an echocardiogram. Her ejection fraction was normal and there is no findings to suggest congestive heart failure. The patient does have a nebulizer and inhaler at home. She has been using this without significant improvement. The patient returned for further evaluation. Her exam today reveals some scattered expiratory wheezing. She does not appear to be in any significant distress. Her vital signs are stable. Her white blood cell count today was 15.6. This could be stress related. Her complete metabolic panel was unremarkable and a troponin was negative. A CT scan of the chest did not reveal PE or acute infiltrate. The patient was treated with a DuoNeb treatment as well as IV Solu- Medrol. Her symptoms did seem to improve some with this. She will be discharged on prednisone. She will continue her nebulizer and inhaler at home. She was advised to follow-up with her PCP. She does have an appointment on Friday, 6 days from now. She was advised to anticipate improvement over the next 5 days. Her symptoms are consistent with a viral type etiology. Medication Reconcilliation Current Medication List: was personally reviewed by me Blood Pressure Screening Patient's blood pressure: Normal blood pressure Blood pressure disposition: Did not require urgent referral Impression Primary Impression: Acute bronchitis Additional Impression: Wheezing Scribe Attestation The scribe's documentation has been prepared under my direction and personally reviewed by me in its entirety. I confirm that the note above accurately reflects all work, treatment, procedures, and medical decision making performed by me. Departure Information Dispostion Home / Self-Care Prescriptions Prednisone (Prednisone) 20 Mg Tab 2 TAB PO DAILY for 4 Days, #8 TAB Prov: Bin Thompson D.O. 04/04/18 Referrals Kaz Andersen MD (PCP) Patient Instructions My [facility] Additional Instructions Follow-up with your doctor for further care and evaluation in 6 days as scheduled. Return to the emergency department for worsening or new symptoms or any concerns. You have been examined and treated today on an emergency basis only. This is not a substitute for, or an effort to provide, complete comprehensive medical care. It is impossible to recognize and treat all injuries or illnesses in a single emergency department visit. It is therefore important that you follow up closely with your doctor. Call as soon as possible for an appointment. Prednisone as prescribed. Continue using her albuterol inhaler or nebulizer every 4-6 hours as needed for wheezing, cough or shortness of breath. Problem Qualifiers
[2018-04-04 17:08] VITALS: BP 126/70; PULSE 100; O2SAT 91
== END 2018-04-04 17:15 | disposition home or self-care (01) ==
LOC: C.EDB 15:03 → C.EDC 17:15
DX: J20.9 Acute bronchitis, unspecified (principal); R06.2 Wheezing; J45.909 Unspecified asthma, uncomplicated; E11.9 Type 2 diabetes mellitus without complications; E78.5 Hyperlipidemia, unspecified; K21.9 Gastro-esophageal reflux disease without esophagitis; I10 Essential (primary) hypertension; M85.80 Other specified disorders of bone density and structure, unspecified site; Z79.82 Long term (current) use of aspirin; Z88.8 Allergy status to other drugs, medicaments and biological substances

== ENCOUNTER 2025-09-28 05:29 | Observation (INO) ==
--- NOTE | 2025-09-15 09:57 | PAT Medication Instructions ---
Medication Instructions Date of Service September 15, 2025 Home Medications acetaminophen 500 mg tablet (Tylenol Extra Strength) 1,000 mg PO BID aspirin 81 mg tablet,delayed release 81 mg PO HS biotin 5,000 mcg disintegrating tablet 5,000 mcg PO QAM cholecalciferol (vitamin D3) 25 mcg (1,000 unit) capsule 25 mcg PO 3XWK denosumab 60 mg/mL subcutaneous syringe 60 mg subcut Q6MO evolocumab 140 mg/mL subcutaneous pen injector (Repatha SureClick) 140 mg subcut famotidine 20 mg tablet 20 mg PO BID furosemide 20 mg tablet 60 mg PO QAM metformin 500 mg tablet,extended release 24 hr 1,000 mg PO QPM metoprolol succinate 50 mg capsule sprinkle, ext. release 24 hr 75 mg PO QAM omeprazole 20 mg capsule,delayed release 20 mg PO QAM spironolactone 25 mg tablet 25 mg PO QAM valacyclovir 1 gram tablet 2,000 mg PO BID PRN empagliflozin 10 mg tablet (Jardiance) 10 mg PO QAM L.acidophil-L.casei-B.bifid-B.longum-FOS 2 billion cell-50 mg capsule (Probiotic Blend) 1 cap PO QAM coQ10 (ubiquinol) 100 mg capsule (Qunol Jason CoQ10) 100 mg PO QAM STOP 3 days before surgery empagliflozin 10 mg tablet (Jardiance) 10 mg PO QAM ASK your prescriber and surgeon aspirin 81 mg tablet,delayed release 81 mg PO HS denosumab 60 mg/mL subcutaneous syringe 60 mg subcut Q6MO evolocumab 140 mg/mL subcutaneous pen injector (Repatha SureClick) 140 mg subcut STOP taking 2 weeks before surgery (or as soon as possible if surgery is within 2 weeks) biotin 5,000 mcg disintegrating tablet 5,000 mcg PO QAM coQ10 (ubiquinol) 100 mg capsule (Qunol Jason CoQ10) 100 mg PO QAM DO NOT take the morning of surgery cholecalciferol (vitamin D3) 25 mcg (1,000 unit) capsule 25 mcg PO 3XWK furosemide 20 mg tablet 60 mg PO QAM spironolactone 25 mg tablet 25 mg PO QAM L.acidophil-L.casei-B.bifid-B.longum-FOS 2 billion cell-50 mg capsule (Probiotic Blend) 1 cap PO QAM Take morning of surgery With a small sip of water, OTHERWISE NOTHING TO EAT OR DRINK AFTER MIDNIGHT: acetaminophen 500 mg tablet (Tylenol Extra Strength) 1,000 mg PO BID famotidine 20 mg tablet 20 mg PO BID metoprolol succinate 50 mg capsule sprinkle, ext. release 24 hr 75 mg PO QAM omeprazole 20 mg capsule,delayed release 20 mg PO QAM valacyclovir 1 gram tablet 2,000 mg PO BID PRN(if needed) Take evening before surgery acetaminophen 500 mg tablet (Tylenol Extra Strength) 1,000 mg PO BID famotidine 20 mg tablet 20 mg PO BID metformin 500 mg tablet,extended release 24 hr 1,000 mg PO QPM valacyclovir 1 gram tablet 2,000 mg PO BID PRN(if needed) Other Notes If you have any questions please call us at [phone] or [phone] or [phone] or [phone]
--- NOTE | 2025-09-19 09:29 | Anesthesiology Consultation ---
Date of Service September 19, 2025 Assessment & Plan (1) Encounter for pre-operative examination: - Check BSG DOS - Infectious disease screening: Per assessment on 09/19/25- No known recent infectious disease contacts. Influenza A positive 08/28/25 ([place]). All symptoms resolved. DOS 09/23/25. Nothing further needed at this time. - Outpatient joint assessment: Pt currently scheduled for inpatient pathway. If surgeon requests review for outpatient joint pathway, patient is not a recommended candidate for outpatient joint program from anesthesia standpoint based on available information. - Cardiology visit 05/23/25: "Longstanding hypertension and diastolic dysfunction. Blood pressure well controlled. Volume status well compensated.. Atherosclerosis of the aorta and coronary arteries. Nonischemic stress testing last in March 2025. No new or worsening symptoms (stable exertional dyspnea attributed to deconditioning). Continue medical management.. Mild cognitive impairment felt to be secondary to mood disorder, generalized anxiety, recurrent major depressive disorder, on escitalopram.. Possible future elective right shoulder surgery. No new or worsening cardiac symptoms. No recent cardiac interventions. Functional capacity less than 4 Mets. Pharmacological stress testing in March 2025 without evidence of pharmacologically induced myocardial ischemia. EKG today without significant change. 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 No overt cardiac contraindications.." - Cardiology note 09/15/25: "Patient last evaluated by the undersigned on May 23, 2025. Preoperative recommendations addressed at that time. Happy to see a nd evaluate if needed/requested again however if no new or worsening symptoms and no change in preop EKG, recommendations would likely remain as previously written. Darian Medina PA-C" > Patient subsequently seen at [facility] 09/19/25 and denied new or worsening symptoms; stable EKG findings. - Acceptable risk for surgery pending upcoming PCP visit (S, appt 09/20). Chart Review Chart Review: Patient seen in Pre Admission Testing Teaching & Discussion Pre-Anesthesia Teaching/Discussion Notes: Instructed NPO after midnight before surgery,except medications with 15 cc of water. Medication instructions provided according to the [facility] guidelines. History Surgery Operation Date: 09/28/25 12:15 Proposed Procedures p Right Shoulder Reversed Total Shoulder Arthroplasty, Biceps Tenodesis - Jose Miguel Ptael MD Height/Weight Height: 5 ft 1.5 in Weight: 65.9 kg Allergies Allergy/AdvReac Type Severity Reaction Status Date / Time ciprofloxacin [Cipro] Allergy Mild Rash Verified 09/15/25 09:49 tramadol Allergy Mild Itchy rash Verified 09/15/25 09:49 duloxetine Allergy Unknown Verified 09/19/25 09:43 lisinopril AdvReac Mild Cough Verified 09/15/25 09:49 Rwtzmrm-VZW-FwK Reductase AdvReac Mild Joint/muscle Verified 09/15/25 09:49 Inhibitor pains [Lorwbiu-Mwi-Xqg Reductase Inhibitor] Medications Home Medications Medication Instructions Recorded Confirmed Last Taken acetaminophen 500 mg tablet 1,000 mg PO BID 12/19/22 09/14/25 Unknown (Tylenol Extra Strength) aspirin 81 mg tablet,delayed 81 mg PO HS 12/19/22 09/14/25 Unknown release biotin 5,000 mcg disintegrating 5,000 mcg PO QAM 12/19/22 09/14/25 Unknown tablet cholecalciferol (vitamin D3) 25 25 mcg PO 3XWK 12/19/22 09/14/25 Unknown mcg (1,000 unit) capsule denosumab 60 mg/mL subcutaneous 60 mg subcut Q6MO 12/19/22 09/14/25 Unknown syringe evolocumab 140 mg/mL subcutaneous 140 mg subcut Q14D 12/19/22 09/14/25 Unknown pen injector (Luis Davies) famotidine 20 mg tablet 20 mg PO BID 12/19/22 09/14/25 Unknown furosemide 20 mg tablet 60 mg PO QAM 12/19/22 09/14/25 Unknown metformin 500 mg tablet,extended 1,000 mg PO QPM 12/19/22 09/14/25 Unknown release 24 hr metoprolol succinate 50 mg capsule 75 mg PO QAM 12/19/22 09/14/25 Unknown sprinkle, ext. release 24 hr omeprazole 20 mg capsule,delayed 20 mg PO QAM 12/19/22 09/14/25 Unknown release spironolactone 25 mg tablet 25 mg PO QAM 12/19/22 09/14/25 Unknown valacyclovir 1 gram tablet 2,000 mg PO BID PRN Cold Sores 12/19/22 09/14/25 Unknown empagliflozin 10 mg tablet 10 mg PO QAM 09/10/23 09/14/25 Unknown (Jardiance) L.acidophil-L.casei-B.bifid-B.longum-FOS 1 cap PO QAM 09/14/25 09/14/25 Unknown 2 billion cell-50 mg capsule (Probiotic Blend) coQ10 (ubiquinol) 100 mg capsule 100 mg PO QAM 09/14/25 09/14/25 Unknown (Qunol Jason CoQ10) Past Medical History Medical History Congestive heart failure Per records, patient denies Diabetes mellitus, type 2 Frequent UTI GERD (gastroesophageal reflux disease) Hx Munguia's esophagus listed per records, patient denies History of DVT (deep vein thrombosis) Post-op back surgery (Age 69), LLE History of pancreatitis "secondary to gallstone" Per records History of vertebral compression fracture "T12" Per records Hypertension Exercise / Class Metabolic Activity III < 4 Walking/Shop/Light housework Past Family History Family History Other No family history of adverse response to anesthesia Past Surgical History Surgical History History of bilateral cataract extraction History of carpal tunnel surgery of right wrist History of cholecystectomy History of colonoscopy History of dilatation and curettage History of esophagogastroduodenoscopy (EGD) History of lumbar spinal fusion History of tooth extraction Past Anesthesia History No Family Hx of Anesthesia Complications and Other (Slow to wake after cataracts) History of PONV No Hx of PONV and No Hx of Motion Sickness Social History Smoking Status: Never smoker Do You Dip or Chew Tobacco: No Hx Alcohol Use: No Hx Substance Use: No substance use type: does not use Review of Systems Patient denies chest pain, shortness of breath, fever, chills, cough, wheezing. Physical Exam Vital Signs BP 102/64 P 59 TEMP 98.1 SP02 95%RA RESP 16 Physical Full cervical extension range of motion. Full TMJ range of motion. TMD 2.5 finger breaths (small chin) Mallampati Score I Dentition: intact, + crowns/caps (including upper front) Lungs: clear throughout to auscultation Cardiac: regular rate and rhythm, no murmurs noted Spine: normal Carotid arteries: negative bruit Extremities: no LE edema Lab Results Anesthesia Preop Results Results Anesthesia Widget: WBC 6.73 K/ul (4.8-10.8) 08/28/25 Hgb 13.8 g/dl (12.0-16.0) 08/28/25 Hct 42.4 % (37.0-47.0) 08/28/25 Plt 189 K/uL (130-400) 08/28/25 Na 137 mmol/L (136-145) 08/28/25 K 3.4 mmol/L (3.5-5.1) L 08/28/25 Cl 103 mmol/L (98-107) 08/28/25 CO2 23 mmol/L (21-32) 08/28/25 BUN 17 mg/dl (6-23) 08/28/25 Creat 0.98 mg/dl (0.6-1.2) 08/28/25 Glucose Level 172 mg/dl (70-99(Fasting)) H 08/28/25 PT 11.1 Seconds (9.0-12.0) 09/19/25 PTT 25 Seconds (21-31) 09/19/25 INR 1.1 (0.9-1.1) 09/19/25 HA1c 6.5 % (4.5-5.6) H 09/19/25 Urine Color Yellow 09/19/25 Urine Appearance Clear (Clear) 09/19/25 Urine pH 6.0 (4.5-7.5) 09/19/25 Urine Specific [place] 1.020 (1.000-1.030) 09/19/25 Urine Protein Negative (Negative) 09/19/25 Urine Glucose (UA) 3+ (Negative) H 09/19/25 Urine Ketones Negative (Negative) 09/19/25 Urine Blood Negative (Negative) 09/19/25 Urine Nitrite Negative (Negative) 09/19/25 Urine Bilirubin Negative (Negative) 09/19/25 Urine Urobilinogen Negative (Negative) 09/19/25 Urine Leukocyte Esterase Negative (Negative) 09/19/25 Urine WBC (Auto) 21-50 /hpf (0-5) H 08/28/25 Urine RBC (Auto) 0-2 /hpf (0-2) 08/28/25 Urine Hyaline Casts (Auto) 0-2 /lpf (0-2) 08/28/25 Urine Epithelial Cells (Auto) 0-2 /hpf (0-2) 08/28/25 Urine Bacteria (Auto) None Seen (None Seen) 08/28/25 COVID-19 PCR NEGATIVE (Negative) 08/28/25 Blood Type A Positive 09/19/25 Antibody Screen NEGATIVE 09/19/25 Testing Laboratory Results Albumin 08/28/25: 3.8 Urine culture 08/28/25: E. coli (now s/p treatment completion per patient) Electrocardiogram Date: 08/28/25 NSR at 67bpm. LAPF. Possible inferior infarct (cited on or before 07/03/2009). NS ST/TWA. Chest X-Ray Date: 08/28/25 Findings: + NAD Stress Test Date: 03/25/25 DSE negative for inducible ischemia at peak dobutamine infusion. Limited study as post stress images were not obtained due to technical difficulties. 117% MPHR. Rest Echo: LVEF 60-64%. RVSP qualitatively normal. Mild MR/TR. Grade I DD.
--- NOTE | 2025-09-27 19:40 | History & Physical Report ---
Date of Service September 27, 2025 Assessment & Plan (1) Osteoarthritis of right glenohumeral joint: Plan: Right shoulder severe end-stage glenohumeral osteoarthritis with bone loss and rotator cuff and biceps tendinopathy. Plan is right shoulder reverse total shoulder arthroplasty biceps tenodesis. (2) Biceps tendinopathy of right upper extremity: (3) Tendinopathy of right rotator cuff: History of Present Illness Chief Complaint: Chronic right shoulder pain osteoarthritis related Primary Care Provider: Kaz Andersen MD 80-year-old female chronic right shoulder pain. Pain and decreased function. Patient denies headaches, sweats, fevers, chills, double vision, blurred vision, cough, sore throat, dysphagia, chest pain, sob, wheezing, n/v/d/c, numbness, tingling, fatigue, urinary symptoms. ROS positive for URI virus 1019, anxiety/depression, extremity numbness, shortness of breath with activity, thrombosis leg 2013?, Osteoarthritis spine, acid reflux. Allergies Allergy/AdvReac Type Severity Reaction Status Date / Time ciprofloxacin [Cipro] Allergy Mild Rash Verified 09/15/25 09:49 tramadol Allergy Mild Itchy rash Verified 09/15/25 09:49 duloxetine Allergy Unknown Verified 09/19/25 09:43 lisinopril AdvReac Mild Cough Verified 09/15/25 09:49 Xwbqmaf-CBN-IiW Reductase AdvReac Mild Joint/muscle Verified 09/15/25 09:49 Inhibitor pains [Jutlakh-Vop-Jkp Reductase Inhibitor] Home Medications Medication Instructions Recorded Confirmed Type acetaminophen 500 mg tablet 1,000 mg PO BID 12/19/22 09/14/25 History (Tylenol Extra Strength) aspirin 81 mg tablet,delayed 81 mg PO HS 12/19/22 09/14/25 History release biotin 5,000 mcg disintegrating 5,000 mcg PO QAM 12/19/22 09/14/25 History tablet cholecalciferol (vitamin D3) 25 25 mcg PO 3XWK 12/19/22 09/14/25 History mcg (1,000 unit) capsule denosumab 60 mg/mL subcutaneous 60 mg subcut Q6MO 12/19/22 09/14/25 History syringe evolocumab 140 mg/mL subcutaneous 140 mg subcut Q14D 12/19/22 09/14/25 History pen injector (Repatha SureClick) famotidine 20 mg tablet 20 mg PO BID 12/19/22 09/14/25 History furosemide 20 mg tablet 60 mg PO QAM 12/19/22 09/14/25 History metformin 500 mg tablet,extended 1,000 mg PO QPM 12/19/22 09/14/25 History release 24 hr metoprolol succinate 50 mg capsule 75 mg PO QAM 12/19/22 09/14/25 History sprinkle, ext. release 24 hr omeprazole 20 mg capsule,delayed 20 mg PO QAM 12/19/22 09/14/25 History release spironolactone 25 mg tablet 25 mg PO QAM 12/19/22 09/14/25 History valacyclovir 1 gram tablet 2,000 mg PO BID PRN Cold Sores 12/19/22 09/14/25 History empagliflozin 10 mg tablet 10 mg PO QAM 09/10/23 09/14/25 History (Jardiance) L.acidophil-L.casei-B.bifid-B.longum-FOS 1 cap PO QAM 09/14/25 09/14/25 History 2 billion cell-50 mg capsule (Probiotic Blend) coQ10 (ubiquinol) 100 mg capsule 100 mg PO QAM 09/14/25 09/14/25 History (Qunol Jason CoQ10) Past Med/Surg History Problem List (Updated 09/27/25 @ 19:39 by Jose Miguel Patel MD) Tendinopathy of right rotator cuff Biceps tendinopathy of right upper extremity Osteoarthritis of right glenohumeral joint Encounter for pre-operative examination Sacroiliitis Leg length discrepancy RLE short 0.6cm Lumbar spinal stenosis due to adjacent segment disease after fusion procedure Lumbar radiculopathy HTN (hypertension) Dyslipidemia (Chronic) Diabetes mellitus, type 2 (Chronic) Asthma (Chronic) Munguia's esophagus (Chronic) GERD (gastroesophageal reflux disease) (Chronic) Statin intolerance (Chronic) Osteoporosis (Chronic) Lumbar stenosis with neurogenic claudication (Chronic) Medical History Congestive heart failure Per records, patient denies History of pancreatitis "secondary to gallstone" Per records History of vertebral compression fracture "T12" Per records Hypertension Frequent UTI Diabetes mellitus, type 2 GERD (gastroesophageal reflux disease) Hx Munguia's esophagus listed per records, patient denies History of DVT (deep vein thrombosis) Post-op back surgery (Age 69), LLE Surgical History History of dilatation and curettage History of carpal tunnel surgery of right wrist History of lumbar spinal fusion History of colonoscopy History of cholecystectomy History of esophagogastroduodenoscopy (EGD) History of tooth extraction History of bilateral cataract extraction Family History Other No family history of adverse response to anesthesia Social History Smoking Status: Never smoker Second Hand Exposure: No; Do You Dip or Chew Tobacco: No; Tobacco Cessation Education Requested by Patient: No Hx Alcohol Use: No Hx Substance Use: No Preferred Language: Uzbek Communication Ability: Effective Visual Impairment: No Limitations Hearing Ability: Normal Event Manager Required: No Beliefs That Will Affect Care: None marital status: Current Living Situation: Spouse current occupational status: retired Other Information That Helps Us Care for You: No Feels Safe at Home: Yes Safety Concerns: Feels Safe At This Time Assistive Devices: Glasses Assistive Devices Comment: reading glasses Review of Systems All systems reviewed & are unremarkable except as noted in HPI & below Physical Exam Constitutional: WD/WN, vitals as above Respiratory: normal respiratory effort; no respiratory distress Cardiovascular: Rate/Rhythm: regular rate and regular rhythm Musculoskeletal: Right shoulder with abnormal rhythm depressed position crepitation with range of motion positive Norris and Neer impingement sign painful range of motion, 120 degrees of flexion passively but 75 degrees of active flexion, abduction of 80 degrees active and passive and only 10 degrees of external and internal rotation. Decreased strength 4-/5 abduction and external rotation. Skin: no rashes, warm and dry Neurologic: normal touch/pain/proprioception Psychiatric: A+Ox3, euthymic affect Results & Data Diagnostic Findings Severe end-stage right shoulder glenohumeral osteoarthritis with flattening of the humeral head and bone loss of the glenoid rotator cuff intact with tendinopathy and has biceps tendinopathy. Best option to manage the bone loss is reverse total shoulder arthroplasty biceps tenodesis. CT blueprint custom guide and templating performed.
[2025-09-28] MEDS: LR 15ML/HR IV SCH (06:07)
[2025-09-28] MEDS: FAMOTIDINE 20 MG TAB PO SCH ×2 (06:08→12:54)
[2025-09-28] MEDS: ACETAMINOPHEN 500 MG TAB PO SCH ×2 (06:08→14:31)
[2025-09-28] MEDS: LR 60ML/HR IV SCH (06:08)
[2025-09-28] MEDS: METOCLOPRAMIDE HCL 10 MG TABLET PO SCH (06:14)
[2025-09-28] MEDS: GABAPENTIN 300 MG CAP PO SCH (06:14)
[2025-09-28] MEDS ORDERED: BUPIVACAINE 0.5 % 5 MG/1 ML PF 10ML VIAL ONE (06:28)
[2025-09-28] MEDS ORDERED: ATROPINE SULFATE 0.1 MG/ML 10ML SYR IV PRN (07:02)
[2025-09-28] MEDS ORDERED: ONDANSETRON INJ 2 MG/ML 2 ML VIAL IV PRN ×2 (07:02→12:21)
[2025-09-28] MEDS ORDERED: MIDAZOLAM HCL 1 MG/ML 2ML VIAL ONE (07:02)
[2025-09-28] MEDS ORDERED: PROPOFOL IV EMULSION 10 MG/ML 20 ML VIAL IV ONE (07:14)
[2025-09-28] MEDS ORDERED: PHENYLEPHRINE HCL 10 MG/ML VIAL ONE (07:14)
[2025-09-28] MEDS ORDERED: LIDOCAINE 2% 20 MG/ML 5 ML SYR IV ONE (07:14)
[2025-09-28] MEDS ORDERED: ONDANSETRON INJ 2 MG/ML 2 ML VIAL ONE (07:14)
[2025-09-28] MEDS ORDERED: ROCURONIUM BROMIDE 10 MG/ML 5 ML VIAL IV ONE ×2 (07:14→08:21)
[2025-09-28] MEDS ORDERED: DEXAMETHASONE SOD INJ 4 MG/ML VIAL ONE (07:14)
--- NOTE | 2025-09-28 07:23 | History & Physical Bridge Note ---
Date of Service September 28, 2025 History & Physical Bridge Note I have examined the patient, reviewed the History & Physical and in the interval since the performance of the History & Physical I have noted the following changes of clinical significance: no changes noted
[2025-09-28] MEDS: TRANEXAMIC ACID 1,000 MG **IV Pre-op IV SCH (07:24)
[2025-09-28] MEDS ORDERED: ePHEDrine sulfate 50 MG/5 ML SYR ONE (09:24)
[2025-09-28] MEDS ORDERED: SUGAMMADEX SODIUM 200 MG/2 ML VIAL IV ONE (10:31)
--- NOTE | 2025-09-28 10:43 | Operative Report ---
Post Operative Report Pre & Post Diagnosis Operation Date: 09/28/25 07:15 Pre-Op Diagnosis: Right Shoulder Degenerative Joint Disease, end-stage glenohumeral osteoarthritis with bone loss, biceps tendinopathy, degenerative glenoid labral tear, calcific tendinitis. Post-Op Diagnosis: Right Shoulder Degenerative Joint Disease , end-stage glenohumeral osteoarthritis with bone loss, biceps tendinopathy, calcific tendinitis with rotator cuff tendinopathy, degenerative glenoid labral tear. I identified the patient and participated in the time-out.: Yes Procedure Operation Date: 09/28/25 07:15 Actual Procedures p Right Reversed Total Shoulder Arthroplasty, Biceps Tenodesis(Right) - Jose Miguel Patel MD Surgeon Jose Miguel Patel MD Mounter Noe AQUINO Estimated Blood Loss 100 Findings Consistent with Post-Op Diagnosis Specimens Humeral head cut Drains 2 Hemovac Anesthesia Type General Regional Complications none Disposition Disposition: Recovery Room Indications 80-year-old female with chronic right shoulder pain and disability with regard to activities of daily living and range of motion. Radiographs demonstrate severe end-stage glenohumeral osteoarthritis with flattening of the humeral head and B2 glenoid with bone loss glenoid and MRI demonstrates intact rotator cuff with tendinopathy and calcific tendinitis and biceps tendinopathy. Degenerative labral tear noted. Description of Procedure The patient was taken to the operating room and anesthetized under regional block and general anesthetic. The patient was positioned on the operating table in a 30 beach chair position with a towel roll under the medial border of the right scapula. The arm was draped free to be able to manipulate the shoulder as needed. The right upper extremity was prepped and draped in usual sterile fashion. Exam demonstrated 0 degrees external rotation with arm at side. 90 degrees flexion. 60 degrees abduction. Internal rotation 30 degrees. Tyow-ul-[id number] crepitation with marked restricted rotation of the arm.. An anterior deltopectoral approach was performed. A longitudinal incision was made in the deltopectoral interval. The skin was incised sharply. Subcutaneous flaps were elevated off the fascia. The cephalic vein was dissected out and retracted lateral with the deltoid. The clavipectoral fascia was divided at the lateral margin of the conjoined tendon and extended up to the CA ligament. The following findings were noted: There was some scarred bursa over the rotator cuff and underlying the deltoid which was removed to help free up some range of motion. The rotator cuff was visibly intact and there was bulging fluid in the rotator interval area. The entire humerus was medialized to the bone loss. The upper centimeter of the pectoralis was released for inferior exposure. The biceps tendon findings demonstrated biceps tenosynovitis. Intra-articularly the biceps was widened and had calcium deposits and degenerative changes within the biceps tendon.. the biceps tendon was tenodesed to the pectoralis tendon with #2 FiberWire. The proximal biceps was resected. The subscapularis tendon was taken down off the lesser tuberosity using a subperiosteal dissection. A #1 Vicryl traction suture was placed into the free end of the subscapularis tendon and capsule. The subscapularis muscle fibers were split longitudinally at the level of the circumflex vessels. The circumflex vessels were identified and tied off with silk ties and divided laterally. A Kitner elevator was used to free up the inferior fibers of the subscapularis off of the capsule. The axillary nerve was identified with a tug test and protected with a blunt Olga retractor between the nerve and the capsule. The subscapularis tendon was then taken down off of the lesser tuberosity subperiosteally and subperiosteal dissection was performed along the neck of the humerus as the arm is gradually actually rotated exposing the humeral head. Humeral head was 100% eburnated bone with flattening of the humeral head and bone loss with large peripheral osteophytes circumferentially. Retractors were readjusted and the inferior osteophytes were all resected using an artist chisel and a rongeur. A Carson elevator was used to assist in releasing the capsule of the neck of the humerus. The anterior capsule was divided with Estes scissors down to the glenoid released off the anterior glenoid and the rotator interval was released to meet the capsular release and a 360 release of the subscapularis was accomplished. The supraspinatus tendon was released off the greater tuberosity and was noted that there was dense calcium deposits within the supraspinatus and all these were removed along with the supraspinatus tissue with sharp debridement leaving the infraspinatus tendon intact. A Fukuda retractor was placed into the joint retracting the humeral head posterior. Glenoid findings demonstrated complete eburnation 100% with a degenerative labrum and tendinopathy of the biceps anchor with calcifications. There was posterior superior glenoid bone loss maximal at 10 o'clock position. Bone was smooth and eburnated and sclerotic. The labrum and biceps tendon was resected. an anterior-inferior and posterior inferior capsular release were performed with electrocautery and a Carson elevator on bone with the axillary nerve protected inferiorly by the retractor. Attention was then taken to the humeral preparation. The cutting guide was placed into the humeral head. It was positioned at 20 of retroversion. Oscillating saw was used to resect the humeral head giving the cut above the level of the posterior rotator cuff insertion site. The humerus was then prepared for the stem. I used the ascend flex stem from [employer]. The sizing broaches were used followed by trial broaches up to a size 4B long which had the appropriate fit and fill. Was noted that there was a large cyst in the anterior cancellous bone attachment and this was curetted out. The appropriate sized cut protector was placed. The humerus was then retracted posterior to the glenoid. The glenoid was sized for a 25 mm full wedge 15 degree implant based on preoperative blueprint CT templating with custom guide.. The custom guide for the baseplate was positioned and fit well according to the model and the central drill guide pin was placed. The reamers for the 25 mm full wedge 15 degree baseplate was used placed in the wedge location at the 10 o'clock position. The reamer for the central boss was used. The guide for the central drill hole was placed in the central drill hole was made. The depth gauge was used to measure for the central screw. The tap was used. The 25 mm full wedge 15 degree performed [employer] baseplate with a 6.5 x 35 mm central screw was screwed into position. The base plate was transfixed with the compression screw first at the area of the wedge followed by 3 locking screws with stable fixation. The fan reamer was used for the 36 millimeter glenoid sphere. No contact was made due to the lateralization. After irrigation the 36 mm standard glenoid sphere was impacted onto the baseplate and the security screw was tightened. Attention was taken back to the humerus. The cut protector was removed and the +0 high offset humeral tray trial was assembled to the trial stem rotated appropriately to get bony coverage and then screwed in position. A trial reduction was performed. A +6/36 mm flex reversed trial insert demonstrated good stability and no shuck. We checked the subscapularis tension and due to the offset and previous medialization of the humerus the subscapularis was too short to do any kind of repair so decision was made not to repair the subscapularis. The trials were removed. The canal was irrigated with pulsatile lavage saline solution. The final component was assembled. The final component was a send Flex 4B longstem assemble 2+0 high offset tray with 36+6 mm reversed flex polyethylene insert. Some cancellous bone harvested from the humeral head cut was placed into the cystic area. The stem was then inserted. This was then subsequently impacted into the humerus with a tight press-fit. It was noted there was a small avulsion at the anterior infraspinatus attachment which was just the anteriormost aspect of the infraspinatus and this was shelled out with electrocautery and then a #2 FiberWire was used to repair that back to the greater tuberosity. The implant was reduced to the glenoid sphere. Stability was verified. The pectoralis was repaired with #2 FiberWire [id number] sutures reinforcing the biceps tendon tenodesis. The arm was taken through a range of motion which demonstrated 130 degrees flexion 100 degrees abduction and external rotation 70 degrees. The implant was stable through the range of motion tested. The wound was copiously irrigated. Irrisept irrigation was utilized as well as saline. 2 Hemovac drains were placed. The deltopectoral interval was closed with [id number] #1 Vicryl sutures. The subcutaneous tissues were closed with 2-0 Vicryl sutures. The skin was closed with surgical sacha. Sterile dressings were applied and a shoulder immobilizer. MILES Martinez my physician laboratory assistant assisted in the procedure to the entire procedure including patient positioning arm positioning prepping and draping soft tissue retraction instrument management suture management and performed the subcutaneous and skin closure and will participate in the postoperative care of the patient. Im ordering collagen sheets as a primary dressing and bordered super absorbent for secondary dressings for the wound resulting from this surgery. Collagen is being utilized to encourage the growth of blood vessels and granulation tissue. The collagen will also speed up the wound healing process, increase skin tensile strength at the surgery site and lessen the chance of a wound dehiscence, help prevent infection, and reduce the appearance of scarring. The silicone secondary dressings will protect the wound and help keep it clean and minimize that chances for infection. I believe that this tr eatment protocol is medically necessary to help facilitate the best outcome possible for my patient. I attest to the content of the Intraoperative Record and any orders documented therein. Any exceptions are noted below.
--- NOTE | 2025-09-28 11:05 | XRay Report ---
XR shoulder RT min 2V routine CLINICAL HISTORY: Post shoulder surgery COMPARISON: None FINDINGS: Right shoulder prosthesis shows no hardware complication. There is expected soft tissue ga s. Skin sacha are present. Postoperative drain is present. IMPRESSION: Unremarkable postoperative exam. ACT 112: Negative or not required by law. Electronically signed by: Morales Brooks M.D. 09/28/2025 11:04 AM
[2025-09-28] MEDS ORDERED: ALUMINUM/MAGNESIUM SUSP 30 ML UDC PO PRN (12:21)
[2025-09-28] MEDS ORDERED: diphenhydrAMINE Capsule 25 MG CAP PO PRN (12:21)
[2025-09-28] MEDS ORDERED: HYDROmorphone INJ 0.5 MG/0.5 ML SYR IV PRN (12:21)
[2025-09-28] MEDS ORDERED: DENOSUMAB 60 MG/ML SQ SCH (12:21)
[2025-09-28] MEDS ORDERED: METOCLOPRAMIDE HCL INJ 5 MG/ML 2 ML VIAL IV PRN (12:21)
[2025-09-28] MEDS ORDERED: MAGNESIUM HYDROXIDE SUSP 30 ML UDC PO PRN (12:21)
[2025-09-28] MEDS ORDERED: NALOXONE HCL 0.4 MG/1 ML VIAL/CARP IV PRN (12:21)
[2025-09-28] MEDS ORDERED: PHARMACY GLYCEMIC MGMT CONSULT PRN (12:21)
[2025-09-28] MEDS: BUPIVACAINE LIPOSOME 1.3% 133 MG/10 ML VIAL ONE (12:35)
[2025-09-28] MEDS: FUROSEMIDE 20 MG TAB PO SCH (12:48)
[2025-09-28] MEDS: MULTIVITAMIN TAB PO SCH (12:48)
[2025-09-28] MEDS: ASPIRIN 81 MG ECTAB PO SCH (12:48)
[2025-09-28] MEDS: SPIRONOLACTONE 25 MG TAB PO SCH (12:49)
[2025-09-28] MEDS: DOCUSATE SODIUM 100 MG CAP PO SCH (12:51)
[2025-09-28] MEDS: SODIUM CHLORIDE 0.9% 1,000 ML IV SCH (12:52)
--- NOTE | 2025-09-28 12:53 | Pharmacy Report ---
Pharmacy Glycemic Short Note 2 - Date of Service September 28, 2025 - Glycemic Short BSG Results (Last 24 hours): 09/28/25 09/28/25 05:50 10:53 POC Glucose 110 H 100 H OUTPATIENT ANTIDIABETIC REGIMEN: * Metformin 1000 mg PO qPM * Empagliflozin 10 mg PO qAM HbA1c: 6.5% (09/19/25) ASSESSMENT: * RW is an 80 year old female POD #0 s/p right reverse total shoulder arthroplasty * Does not appear that patient received any steroids in OR * Dexamethasone 10 mg IV x 1 ordered tomorrow morning (09/29/25) * Will use conservative initial SC bolus insulin only, reassess in AM w/ steroids PLAN FOR INPATIENT GLYCEMIC CONTROL: * Hold outpatient oral diabetes medications * Basal insulin * hold basal insulin * Bolus insulin * NovoLog per scale ACHS or Q6hrs while NPO * Goal Range: Low 120 mg/dL - High 160 mg/dL * Correction Factor: 35 mg/dL/unit * Nutritional / Prandial insulin per carb ratio of 1 unit per 12 grams CHO consumed
[2025-09-28] MEDS ORDERED: GLUCAGON FOR INJ 1 MG VIAL SQ PRN (13:00)
[2025-09-28] MEDS ORDERED: GLUCOSE 40% GEL 15 GM TUBE PO PRN (13:00)
[2025-09-28] MEDS ORDERED: DEXTROSE 50% 50 ML SYRINGE IV PRN (13:00)
[2025-09-28] MEDS ORDERED: GLUCOSE 10 TAB/TUBE PO PRN (13:00)
[2025-09-28] MEDS ORDERED: CARBOHYDRATES FOR HYPOGLYCEMIA PO PRN (13:00)
[2025-09-28] MEDS: INSULIN ASPART PER UNIT CHARGE SC SCH (13:05)
--- NOTE | 2025-09-28 13:15 | Hospitalist Consultation ---
Date of Consultation September 28, 2025 Assessment & Plan (1) Status post reverse arthroplasty of right shoulder: History of osteoarthritis of the right glenohumeral joint with biceps tendinopathy and tendinopathy of the right rotator cuff Underwent right reverse total shoulder arthroplasty, biceps tenodesis on 09/28/2025 Minimal pain and numbness involving the right lower extremity without any other symptoms Management will be as per Ortho (2) Dyslipidemia: Has been intolerant to statins (3) HTN (hypertension): Blood pressure remains stable on current medications (4) Diabetes mellitus, type 2: We will continue with sliding scale insulin administration Hemoglobin A1c 6.5 (5) GERD (gastroesophageal reflux disease): Continue Protonix (6) Lumbar spinal stenosis due to adjacent segment disease after fusion procedure: Plan DVT prophylaxis As per Ortho CODE STATUS Full Remains medically stable and will follow the labs tomorrow and also keep following as long as she will be in the hospital. History of Present Illness Reason for Consultation: Medical management following surgery Requesting Physician: Dr. Dukes Attending Physician: Jose Miguel Patel MD History of Present Illness She is an 80-year-old female significant past medical history of hypertension, type 2 diabetes, GERD, hyperlipidemia, and hypertensive heart disease with diastolic heart failure apparently underwent Right shoulder arthroplasty this morning. She has a preop evaluation prior to the procedure and following the procedure she has been complaining of numbness involving the right upper extremity and pain in the right shoulder. Denies any other significant symptoms. Does not have any chest pain, shortness of breath or palpitation. Denies any abdominal pain nausea or vomiting Allergies Allergy/AdvReac Type Severity Reaction Status Date / Time ciprofloxacin [Cipro] Allergy Mild Rash Verified 09/28/25 05:50 tramadol Allergy Mild Itchy rash Verified 09/28/25 05:50 duloxetine Allergy Unknown Verified 09/28/25 05:50 lisinopril AdvReac Mild Cough Verified 09/28/25 05:50 Gugkiww-PPY-NvT Reductase AdvReac Mild Joint/muscle Verified 09/28/25 05:50 Inhibitor pains [Ahfmrcv-Hbe-Nue Reductase Inhibitor] Home Medications Medication Instructions Recorded Confirmed Type acetaminophen 500 mg tablet 1,000 mg PO BID 12/19/22 09/28/25 History (Tylenol Extra Strength) aspirin 81 mg tablet,delayed 81 mg PO HS 12/19/22 09/28/25 History release biotin 5,000 mcg disintegrating 5,000 mcg PO QAM 12/19/22 09/28/25 History tablet cholecalciferol (vitamin D3) 25 25 mcg PO 3XWK 12/19/22 09/28/25 History mcg (1,000 unit) capsule denosumab 60 mg/mL subcutaneous 60 mg subcut Q6MO 12/19/22 09/28/25 History syringe evolocumab 140 mg/mL subcutaneous 140 mg subcut Q14D 12/19/22 09/28/25 History pen injector (Luis Davies) famotidine 20 mg tablet 20 mg PO BID 12/19/22 09/28/25 History furosemide 20 mg tablet 60 mg PO QAM 12/19/22 09/28/25 History metformin 500 mg tablet,extended 1,000 mg PO QPM 12/19/22 09/28/25 History release 24 hr metoprolol succinate 50 mg capsule 75 mg PO QAM 12/19/22 09/28/25 History sprinkle, ext. release 24 hr omeprazole 20 mg capsule,delayed 20 mg PO QAM 12/19/22 09/28/25 History release spironolactone 25 mg tablet 25 mg PO QAM 12/19/22 09/28/25 History valacyclovir 1 gram tablet 2,000 mg PO BID PRN Cold Sores 12/19/22 09/28/25 History empagliflozin 10 mg tablet 10 mg PO QAM 09/10/23 09/28/25 History (Jardiance) L.acidophil-L.casei-B.bifid-B.longum-FOS 1 cap PO QAM 09/14/25 09/28/25 History 2 billion cell-50 mg capsule (Probiotic Blend) coQ10 (ubiquinol) 100 mg capsule 100 mg PO QAM 09/14/25 09/28/25 History (Qunol Jason CoQ10) acetaminophen 500 mg tablet 1,000 mg (2 x 500 mg) PO Q8H #90 09/28/25 Rx (Tylenol Extra Strength) tabs aspirin 81 mg tablet,delayed 81 mg PO BID #60 tabs 09/28/25 Rx release cefadroxil 500 mg capsule 500 mg PO Q12H #28 caps 09/28/25 Rx celecoxib 200 mg capsule (Celebrex) 200 mg PO Q12H #60 caps 09/28/25 Rx oxycodone 5 mg tablet 5 mg PO Q4H PRN pain #30 tabs 09/28/25 Rx Patient History Medical History Congestive heart failure Per records, patient denies History of pancreatitis "secondary to gallstone" Per records History of vertebral compression fracture "T12" Per records Hypertension Frequent UTI Diabetes mellitus, type 2 GERD (gastroesophageal reflux disease) Hx Munguia's esophagus listed per records, patient denies History of DVT (deep vein thrombosis) Post-op back surgery (Age 69), LLE Surgical History History of dilatation and curettage History of carpal tunnel surgery of right wrist History of lumbar spinal fusion History of colonoscopy History of cholecystectomy History of esophagogastroduodenoscopy (EGD) History of tooth extraction History of bilateral cataract extraction Family History Other No family history of adverse response to anesthesia Social History Smoking Status: Never smoker Second Hand Exposure: No; Do You Dip or Chew Tobacco: No; Tobacco Cessation Education Requested by Patient: No Hx Alcohol Use: No Hx Substance Use: No Preferred Language: Panamanian Communication Ability: Effective Visual Impairment: No Limitations Hearing Ability: Normal Package Dyer Required: No Beliefs That Will Affect Care: None marital status: Current Living Situation: Spouse current occupational status: retired Other Information That Helps Us Care for You: No Feels Safe at Home: Yes Safety Concerns: Feels Safe At This Time Assistive Devices: Glasses Assistive Devices Comment: reading glasses Review of Systems Review of Systems: All systems reviewed and are unremarkable except as noted below Physical Exam Physical Exam: Lying in bed without any acute distress Constitutional: well developed, well nourished, + ill appearing and average body habitus Eyes: PERRL, conjunctivae normal, anicteric sclerae ENMT: external ear and nose normal, oropharynx normal Neck: trachea midline, no thyromegaly Respiratory: no respiratory distress Auscultation: lungs clear to auscultation bilaterally Cardiovascular: Rate/Rhythm: regular rate and regular rhythm; not tachycardic Heart Sounds: normal S1 and normal S2; no murmur Extremities: no edema Gastrointestinal (Abdomen): Inspection/Auscultation: normal bowel sounds; abdomen not distended Percussion/Palpation: abdomen soft; abdomen nontender Musculoskeletal: S/P right shoulder arthroplasty Neurologic: normal touch/pain/proprioception and moves all extremities; no focal motor deficits Lymphatic: no cervical or axillary lymphadenopathy Results & Data Results & Data Vital Signs (Past 12 Hours) Vital Signs Temp Pulse Pulse Resp BP Pulse Ox O2 Del Method 09/28/25 12:28 36.4 C L 78 16 95 Room Air 09/28/25 12:14 36.4 C L 66 16 98 Room Air 09/28/25 11:47 36.6 C 78 16 98 Room Air 09/28/25 11:15 36.5 C 59 L 16 120/56 L 94 Room Air 09/28/25 11:05 65 16 125/54 L 97 Oxymask 09/28/25 10:55 66 18 127/71 99 Oxymask 09/28/25 10:48 36.0 C L 61 16 120/78 93 Oxymask 09/28/25 05:56 36.6 C 57 L 18 145/67 H 97 Room Air O2 Flow Rate 09/28/25 12:28 09/28/25 12:14 09/28/25 11:47 09/28/25 11:15 09/28/25 11:05 6 09/28/25 10:55 6 09/28/25 10:48 4 09/28/25 05:56 Medications Administered Current Inpatient Medications Acetaminophen (Acetaminophen 500 Mg Tab) 1,000 mg PO Q8 [facility] Stop: 10/28/25 13:59 Al Hydrox/Mg Hydrox/Simethicone (Aluminum/Magnesium Susp 30 Ml Udc) 15 ml PO Q4H PRN PRN Reason: Heartburn Stop: 10/28/25 12:20 Aspirin (Aspirin 81 Mg Ectab) 81 mg PO BID [facility] Stop: 10/28/25 12:20 Last Admin: 09/28/25 12:48 Dose: 81 mg Bisacodyl (Bisacodyl 10 Mg Supp) 10 mg [place] DAILY PRN PRN Reason: Constipation Stop: 10/28/25 12:20 Dextrose (Dextrose 50% 50 Ml Syringe) 25 - 50 ml IV UD PRN; Protocol PRN Reason: Hypoglycemia Protocol Stop: 10/28/25 12:59 Diphenhydramine HCl (Diphenhydramine Capsule 25 Mg Cap) 25 mg PO Q8H PRN PRN Reason: Itching Stop: 10/28/25 12:20 Docusate Sodium (Docusate Sodium 100 Mg Cap) 100 mg PO BID [facility] Stop: 10/28/25 12:44 Last Admin: 09/28/25 12:51 Dose: 100 mg Famotidine (Famotidine 20 Mg Tab) 20 mg PO BID [facility] Stop: 10/28/25 12:29 Last Admin: 09/28/25 12:54 Dose: 20 mg Furosemide (Furosemide 20 Mg Tab) 60 mg PO QAM [facility] Stop: 10/28/25 12:29 Last Admin: 09/28/25 12:48 Dose: 60 mg Glucagon (Glucagon For Inj 1 Mg Vial) 1 mg SQ UD PRN; Protocol PRN Reason: Hypoglycemia Protocol Stop: 10/28/25 12:59 Glucose (Glucose 40% Gel 15 Gm Tube) 15 - 30 gm PO UD PRN; Protocol PRN Reason: Hypoglycemia Protocol Stop: 10/28/25 12:59 Glucose (Glucose 10 Tab/Tube) 4 - 8 tab PO UD PRN; Protocol PRN Reason: Hypoglycemia Protocol Stop: 10/28/25 12:59 Hydromorphone HCl (Hydromorphone Inj 0.5 Mg/0.5 Ml Syr) 0.5 mg IV Q4H PRN PRN Reason: Pain or Pre PT Stop: 10/12/25 12:20 Sodium Chloride (Nss) 1,000 mls @ 100 mls/hr IV .Q10H [facility] Stop: 09/29/25 06:00 Last Admin: 09/28/25 12:52 Dose: 100 mls/hr Cefazolin Sodium (Ancef 2000mg) 2,000 mg in 15 mls @ 3.75 mls/min IV Q8H [facility]; Protocol Stop: 09/28/25 23:33 Dexamethasone 10 mg/ Syringe 2.5 mls @ 1 mls/min IV TODAY@08 [facility] Stop: 09/29/25 08:03 Tranexamic Acid (Tranexamic Acid / 0.7% Nacl) 1,000 mg in 100 mls @ 600 mls/hr IV Q6H [facility] Stop: 09/28/25 16:39 Insulin Aspart (Insulin Aspart Per Unit Charge) 0 units SC ACHS [facility] Stop: 10/28/25 12:59 Last Admin: 09/28/25 13:05 Dose: Not Given Ketorolac Tromethamine (Ketorolac Tromethamine 15 Mg/Ml Vial) 15 mg IV Q6H PRN PRN Reason: Breakthrough Pain Lactobacillus Acidophilus (Advanced Probiotic 625 Mg Capsule) [facility] Stop: 10/29/25 08:59 Magnesium Hydroxide (Magnesium Hydroxide Susp 30 Ml Udc) 30 ml PO Q6H PRN PRN Reason: Constipation Stop: 10/28/25 12:20 Metoclopramide HCl (Metoclopramide Hcl Inj 5 Mg/Ml 2 Ml Vial) 10 mg IV Q6H PRN PRN Reason: Nausea And Vomiting Stop: 10/28/25 12:20 Metoprolol Succinate (Metoprolol Succ 25mg Ext Rel Tab) [address] [facility] Stop: 10/29/25 08:59 Miscellaneous (Repatha 140 Mg Inj: Order Awaiting Action) 1 each N/A QS [facility] Stop: 11/07/25 07:59 Miscellaneous (Carbohydrates For Hypoglycemia ) 15 - 30 gm PO UD PRN PRN Reason: Hypoglycemia Treatment Stop: 10/28/25 12:59 Miscellaneous Information (Pharmacy Glycemic Mgmt Consult) 1 each N/A UD PRN PRN Reason: Consult Stop: 10/28/25 12:20 Multivitamins (Multivitamin Tab) 1 tab [facility] Stop: 10/28/25 12:44 Last Admin: 09/28/25 12:48 Dose: 1 tab Naloxone HCl (Naloxone Hcl 0.4 Mg/1 Ml Vial/Carp) 0.1 mg IV Q5M PRN PRN Reason: Oversedation/Resp Depression Stop: 10/28/25 12:20 Ondansetron HCl (Ondansetron Inj 2 Mg/Ml 2 Ml Vial) 4 mg IV Q6H PRN PRN Reason: Nausea And Vomiting Stop: 10/28/25 12:20 Oxycodone HCl (Oxycodone Hcl Ir 5 Mg Tab (Immediate Release)) 5 - 10 mg PO Q4H PRN PRN Reason: Pain or Pre PT Stop: 10/12/25 12:20 Pantoprazole Sodium (Pantoprazole 40 Mg Tab) 40 mg PO QAM [facility] Stop: 10/29/25 08:59 Sennosides (Senna 8.6 Mg Tab) 17.2 mg PO HS [facility] Stop: 10/28/25 20:59 Spironolactone (Spironolactone 25 Mg Tab) 25 mg PO QAM [facility] Stop: 10/28/25 12:29 Last Admin: 09/28/25 12:49 Dose: 25 mg Valacyclovir HCl (Valacyclovir Hcl 500 Mg Tablet) 2,000 mg PO BID PRN PRN Reason: Cold Sores Stop: 10/28/25 12:20 Vitamin D (Cholecalciferol 25 Mcg (1000 Units) Tab) 25 mcg PO MoWeFr@0900 [facility] Stop: 10/28/25 15:59
--- NOTE | 2025-09-28 14:18 | Anesthesiology Progress Note ---
Date of Service September 28, 2025 Anesthesia Post Procedure Vital Signs Vital Signs: Temp Pulse Pulse Resp BP Pulse Ox O2 Del Method 09/28/25 14:02 36.6 C 72 17 110/74 94 Room Air 09/28/25 13:15 36.5 C 68 17 96 Room Air 09/28/25 12:28 36.4 C L 78 16 95 Room Air 09/28/25 12:14 36.4 C L 66 16 98 Room Air 09/28/25 11:47 36.6 C 78 16 98 Room Air 09/28/25 11:15 36.5 C 59 L 16 120/56 L 94 Room Air 09/28/25 11:05 65 16 125/54 L 97 Oxymask 09/28/25 10:55 66 18 127/71 99 Oxymask 09/28/25 10:48 36.0 C L 61 16 120/78 93 Oxymask 09/28/25 05:56 36.6 C 57 L 18 145/67 H 97 Room Air O2 Flow Rate 09/28/25 14:02 09/28/25 13:15 09/28/25 12:28 09/28/25 12:14 09/28/25 11:47 09/28/25 11:15 09/28/25 11:05 6 09/28/25 10:55 6 09/28/25 10:48 4 09/28/25 05:56 Pain Intensity Right Shoulder: Pain Intensity: 0 Transfer of Care Handoff Completed per policy Notes Mental Status: alert / awake / arousable Patient Amnestic to Procedure: Yes Nausea / Vomiting: adequately controlled Pain: adequately controlled Airway Patency, RR, SpO2: stable & adequate BP & HR: stable & adequate Hydration State: stable & adequate Anesthetic Complications: no major complications apparent
[2025-09-28] MEDS: EMPAGLIFLOZIN 10 MG TAB PO SCH (14:53)
[2025-09-28] MEDS: TRANEXAMIC ACID / 0.7% NACL 1,000 MG/100 ML BAG IV SCH (16:22)
[2025-09-28] MEDS: CHOLECALCIFEROL 25 MCG (1000 UNITS) TAB PO SCH (17:11)
[2025-09-28] MEDS: SENNA 8.6 MG TAB PO SCH (20:47)
[2025-09-29 06:39] LABS: Hematocrit (blood only) 36.1 % (37.0-47.0); Hemoglobin 11.8 g/dL (12.0-16.0); Immature Granulocytes # (auto) 0.05 K/uL (0.01-0.20); Immature Granulocytes % (auto) 0.5 %; Mean Corpuscular Hemoglobin 31.5 pg (25.0-34.0); Mean Corpuscular Volume 96.3 fL (80.0-100.0); Platelet Count 173 K/uL (130-400); RDW Standard Deviation 47.2 fL (36.4-46.3); Red Blood Count 3.75 M/uL (4.20-5.40); White Blood Count 10.74 K/ul (4.8-10.8)
[2025-09-29 07:17] LABS: Anion Gap 6.0 (3-11); Blood Urea Nitrogen 12.0 mg/dl (6-23); Calcium 8.3 mg/dl (8.6-10.3); Carbon Dioxide 28.0 mmol/L (21-32); Chloride 104.0 mmol/L (98-107); Creatinine Clr Calc Pharmacy 44.1 ml/min; Glucose 131.0 mg/dl (70-99(Fasting)); Magnesium 1.7 mg/dl (1.7-2.4); Potassium 3.8 mmol/L (3.5-5.1); Sodium 138.0 mmol/L (136-145)
--- NOTE | 2025-09-29 08:07 | Orthopedic Progress Note ---
Date of Service September 29, 2025 Assessment & Plan (1) Osteoarthritis of right glenohumeral joint: Plan: Postop day 1 right reverse shoulder replacement. Will have patient see OT and PT today go over home exercise. We just can do home exercises for a few weeks and then start physical therapy formally as an outpatient in 2 to 3 weeks. Patient's drain can be discontinued today prior to discharge. P can be discharged later today after seen by PT OT. Right shoulder severe end-stage glenohumeral osteoarthritis with bone loss and rotator cuff and biceps tendinopathy. Plan is right shoulder reverse total shoulder arthroplasty biceps tenodesis. (2) Biceps tendinopathy of right upper extremity: (3) Tendinopathy of right rotator cuff: Admission and Anticipated Discharge Date Admission Date: September 28, 2025 Subjective Pain tolerable. No complaints Review of Systems Review of Systems: No chest pain shortness of breath feels well Physical Exam Musculoskeletal: Dressing dry and intact. Distal circulation intact. Motor function returning not 100% but near complete. Results & Data Vital Signs (Past 12 Hours) Vital Signs Temp Pulse Resp BP Pulse Ox O2 Del Method O2 Flow Rate 09/29/25 07:23 37.2 C 69 16 105/63 92 Room Air 09/29/25 02:58 37.0 C 75 16 108/61 94 Nasal Cannula 2 09/28/25 23:04 36.8 C 82 16 109/70 92 Room Air 09/28/25 20:47 Room Air Diagnostic Findings Radiographs demonstrate normally located well-fixed well aligned reverse total shoulder replacement with augmented glenoid baseplate
[2025-09-29] MEDS: ADVANCED PROBIOTIC 625 MG CAPSULE PO SCH (08:39)
[2025-09-29] MEDS: METOPROLOL SUCC 25MG EXT REL TAB PO SCH (08:40)
[2025-09-29] MEDS: dexAMETHasone 10 MG in SYRINGE 0 ML IV SCH (08:46)
[2025-09-29] MEDS: KETOROLAC TROMETHAMINE 15 MG/ML VIAL IV PRN (08:51)
--- NOTE | 2025-09-29 10:36 | Hospitalist Progress Note ---
Date of Service September 29, 2025 Assessment & Plan (1) Status post reverse arthroplasty of right shoulder: Plan: History of osteoarthritis of the right glenohumeral joint with biceps tendinopathy and tendinopathy of the right rotator cuff Underwent right reverse total shoulder arthroplasty, biceps tenodesis on 09/28/2025 Pt continues to report numbness involving the right upper extremity without any other symptoms Management will be as per Ortho (2) Dyslipidemia: Plan: Has been intolerant to statins, per chart review (3) HTN (hypertension): Plan: - on home metoprolol Hx of Hypertensive heart disease w/ diastolic HF, follows w/ [facility] cardiology - was advised to hold spironolactone, and lasix in the morning of surgery - plan to resume, however pt's BP on lower side and felt little dizzy this AM (now seems resolved) (4) Diabetes mellitus, type 2: Plan: -continue with sliding scale insulin administration Hemoglobin A1c 6.5% (5) GERD (gastroesophageal reflux disease): Plan: Continue Protonix (6) Lumbar spinal stenosis due to adjacent segment disease after fusion procedure: Plan DVT prophylaxis - As per Ortho CODE STATUS Full Admission and Anticipated Discharge Date Admission Date: September 28, 2025 Subjective Pt seen in follow up S/p shoulder surgery yesterday Currently sitting up in chair in NAD Family present at the bedside Pt says she had troubles sleeping overnight, was up about every hour. Reports that when walking from bathroom she was short of breath. then this AM she was dizzy when tried to work with PT. Currently denies any chest pain or shortness of breath. states her R arm still feels numb but she can move her fingers. No abd. pain or nausea at this time either. Discussed w/ RN at the bedside (per RN no issues this AM). VS re-checked. Review of Systems Review of Systems: All systems reviewed & are unremarkable except as noted in Subjective Physical Exam Physical Exam: Physical Exam: Sitting up in sawyer ir in NAD, on RA Constitutional: well developed, we ll nourished Eyes: PERRL, conjunctiva e normal, anicteri c sclerae ENMT: external ear and n ose normal Neck: supple Respiratory: no respiratory dis tress, decreased b reath sounds, + mi ld diffuse rhonchi , no wheezing Cardiovascular: Rate/Rhythm: regul ar rate and regula r rhythm; not tach ycardic Heart Luiza nds: normal S1 and normal S2; no mur mur Gastrointestinal ( Abdomen): abdomen soft, nont celeste Musculoskeletal: S/P right should er arthroplasty, R arm in sling Neurologic: moves all extremit ies; moves fingers of right arm Results & Data Results & Data Vital Signs (Past 12 Hours) Vital Signs Temp Pulse Resp BP Pulse Ox O2 Del Method O2 Flow Rate 09/29/25 09:54 18 96 Room Air 09/29/25 09:50 68 94/60 L 91 Room Air 09/29/25 07:23 37.2 C 69 16 105/63 92 Room Air 09/29/25 02:58 37.0 C 75 16 108/61 94 Nasal Cannula 2 09/28/25 23:04 36.8 C 82 16 109/70 92 Room Air Laboratory Results 09/29/25 09/29/25 09/28/25 Range/Units 07:25 06:08 20:28 WBC 10.74 (4.8-10.8) K/ul RBC 3.75 L (4.20-5.40) M/uL Hgb 11.8 L (12.0-16.0) g/dL Hct 36.1 L (37.0-47.0) % MCV 96.3 (80.0-100.0) fL MCH 31.5 (25.0-34.0) pg MCHC 32.7 (32.0-36.0) g/dL RDW Std Deviation 47.2 H (36.4-46.3) fL RDW Coeff of Zuleyka 13.3 (11.5-14.5) % Plt Count 173 (130-400) K/uL MPV 10.2 (9.4-12.4) fL Immature Gran % (Auto) 0.5 % Neut % (Auto) 64.6 % Lymph % (Auto) 19.2 % [place] % (Auto) 12.3 % Eos % (Auto) 2.7 % Baso % (Auto) 0.7 % Neut # (Auto) 6.95 H (1.40-6.50) K/uL Lymph # (Auto) 2.06 (1.20-3.40) K/uL [place] # (Auto) 1.32 H (0.11-0.59) K/uL Eos # (Auto) 0.29 (0.00-0.50) K/uL Baso # (Auto) 0.07 (0.00-0.20) K/uL Immature Gran # (Auto) 0.05 (0.01-0.20) K/uL Sodium 138 (136-145) mmol/L Potassium 3.8 (3.5-5.1) mmol/L Chloride 104 (98-107) mmol/L Carbon Dioxide 28 (21-32) mmol/L Anion Gap 6 (3-11) BUN 12 (6-23) mg/dl Creatinine 0.88 (0.6-1.2) mg/dl Est Cr Clr Drug Dosing 44.1 ml/min eGFR 65.98 BUN/Creatinine Ratio 13.6 (10-20) Glucose 131 H (70-99(Fasting)) mg/dl POC Glucose 127 H 199 H (70-99) mg/dl Calcium 8.3 L (8.6-10.3) mg/dl Magnesium 1.7 (1.7-2.4) mg/dl 09/28/25 09/28/25 Range/Units 16:22 10:53 WBC (4.8-10.8) K/ul RBC (4.20-5.40) M/uL Hgb (12.0-16.0) g/dL Hct (37.0-47.0) % MCV (80.0-100.0) fL MCH (25.0-34.0) pg MCHC (32.0-36.0) g/dL RDW Std Deviation (36.4-46.3) fL RDW Coeff of [place] (11.5-14.5) % Plt Count (130-400) K/uL MPV (9.4-12.4) fL Immature Gran % (Auto) % Neut % (Auto) % Lymph % (Auto) % [place] % (Auto) % Eos % (Auto) % Baso % (Auto) % Neut # (Auto) (1.40-6.50) K/uL Lymph # (Auto) (1.20-3.40) K/uL [place] # (Auto) (0.11-0.59) K/uL Eos # (Auto) (0.00-0.50) K/uL Baso # (Auto) (0.00-0.20) K/uL Immature Gran # (Auto) (0.01-0.20) K/uL Sodium (136-145) mmol/L Potassium (3.5-5.1) mmol/L Chloride (98-107) mmol/L Carbon Dioxide (21-32) mmol/L Anion Gap (3-11) BUN (6-23) mg/dl Creatinine (0.6-1.2) mg/dl Est Cr Clr Drug Dosing ml/min eGFR BUN/Creatinine Ratio (10-20) Glucose (70-99(Fasting)) mg/dl POC Glucose 207 H 100 H (70-99) mg/dl Calcium (8.6-10.3) mg/dl Magnesium (1.7-2.4) mg/dl Medications Administered Current Inpatient Medications Acetaminophen (Acetaminophen 500 Mg Tab) 1,000 mg PO Q8 [facility] Stop: 10/28/25 13:59 Last Admin: 09/29/25 05:15 Dose: Not Given Al Hydrox/Mg Hydrox/Simethicone (Aluminum/Magnesium Susp 30 Ml Udc) 15 ml PO Q4H PRN PRN Reason: Heartburn Stop: 10/28/25 12:20 Aspirin (Aspirin 81 Mg Ectab) 81 mg PO BID [facility] Stop: 10/28/25 12:20 Last Admin: 09/29/25 08:42 Dose: 81 mg Bisacodyl (Bisacodyl 10 Mg Supp) 10 mg [place] DAILY PRN PRN Reason: Constipation Stop: 10/28/25 12:20 Dextrose (Dextrose 50% 50 Ml Syringe) 25 - 50 ml IV UD PRN; Protocol PRN Reason: Hypoglycemia Protocol Stop: 10/28/25 12:59 Diphenhydramine HCl (Diphenhydramine Capsule 25 Mg Cap) 25 mg PO Q8H PRN PRN Reason: Itching Stop: 10/28/25 12:20 Docusate Sodium (Docusate Sodium 100 Mg Cap) 100 mg PO BID [facility] Stop: 10/28/25 12:44 Last Admin: 09/29/25 08:52 Dose: 100 mg Famotidine (Famotidine 20 Mg Tab) 20 mg PO BID [facility] Stop: 10/28/25 12:29 Last Admin: 09/29/25 08:52 Dose: 20 mg Furosemide (Furosemide 20 Mg Tab) 60 mg PO QAM [facility] Stop: 10/28/25 12:29 Last Admin: 09/29/25 08:39 Dose: 60 mg Glucagon (Glucagon For Inj 1 Mg Vial) 1 mg SQ UD PRN; Protocol PRN Reason: Hypoglycemia Protocol Stop: 10/28/25 12:59 Glucose (Glucose 40% Gel 15 Gm Tube) 15 - 30 gm PO UD PRN; Protocol PRN Reason: Hypoglycemia Protocol Stop: 10/28/25 12:59 Glucose (Glucose 10 Tab/Tube) 4 - 8 tab PO UD PRN; Protocol PRN Reason: Hypoglycemia Protocol Stop: 10/28/25 12:59 Hydromorphone HCl (Hydromorphone Inj 0.5 Mg/0.5 Ml Syr) 0.5 mg IV Q4H PRN PRN Reason: Pain or Pre PT Stop: 10/12/25 12:20 Insulin Aspart (Insulin Aspart Per Unit Charge) 0 units SC ACHS [facility] Stop: 10/28/25 12:59 Last Admin: 09/29/25 08:46 Dose: 4 units Ketorolac Tromethamine (Ketorolac Tromethamine 15 Mg/Ml Vial) 15 mg IV Q6H PRN PRN Reason: Breakthrough Pain Last Admin: 09/29/25 08:51 Dose: 15 mg Lactobacillus Acidophilus (Advanced Probiotic 625 Mg Capsule) 1,250 mg PO QAM [facility] Stop: 10/29/25 08:59 Last Admin: 09/29/25 08:39 Dose: 1,250 mg Magnesium Hydroxide (Magnesium Hydroxide Susp 30 Ml Udc) 30 ml PO Q6H PRN PRN Reason: Constipation Stop: 10/28/25 12:20 Metoclopramide HCl (Metoclopramide Hcl Inj 5 Mg/Ml 2 Ml Vial) 10 mg IV Q6H PRN PRN Reason: Nausea And Vomiting Stop: 10/28/25 12:20 Metoprolol Succinate (Metoprolol Succ 25mg Ext Rel Tab) 75 mg PO QAM [facility] Stop: 10/29/25 08:59 Last Admin: 09/29/25 08:40 Dose: 75 mg Miscellaneous (Repatha 140 Mg Inj: Order Awaiting Action) 1 each N/A QS [facility] Stop: 11/07/25 07:59 Miscellaneous (Carbohydrates For Hypoglycemia ) 15 - 30 gm PO UD PRN PRN Reason: Hypoglycemia Treatment Stop: 10/28/25 12:59 Miscellaneous Information (Pharmacy Glycemic Mgmt Consult) 1 each N/A UD PRN PRN Reason: Consult Stop: 10/28/25 12:20 Multivitamins (Multivitamin Tab) [facility]: 10/28/25 12:44 Last Admin: 09/29/25 08:41 Dose: 1 tab Naloxone HCl (Naloxone Hcl 0.4 Mg/1 Ml Vial/Carp) 0.1 mg IV Q5M PRN PRN Reason: Oversedation/Resp Depression Stop: 10/28/25 12:20 Ondansetron HCl (Ondansetron Inj 2 Mg/Ml 2 Ml Vial) 4 mg IV Q6H PRN PRN Reason: Nausea And Vomiting Stop: 10/28/25 12:20 Oxycodone HCl (Oxycodone Hcl Ir 5 Mg Tab (Immediate Release)) 5 - 10 mg PO Q4H PRN PRN Reason: Pain or Pre PT Stop: 10/12/25 12:20 Last Admin: 09/29/25 05:15 Dose: 5 mg Pantoprazole Sodium (Pantoprazole 40 Mg Tab) [facility] Stop: 10/29/25 08:59 Last Admin: 09/29/25 08:41 Dose: 40 mg Sennosides (Senna 8.6 Mg Tab) 17.2 mg PO [facility] Stop: 10/28/25 20:59 Last Admin: 09/28/25 20:47 Dose: 17.2 mg Spironolactone (Spironolactone 25 Mg Tab) 25 [facility] Stop: 10/28/25 12:29 Last Admin: 09/29/25 08:41 Dose: 25 mg Valacyclovir HCl (Valacyclovir Hcl 500 Mg Tablet) 2,000 mg PO BID PRN PRN Reason: Cold Sores Stop: 10/28/25 12:20 Vitamin D (Cholecalciferol 25 Mcg (1000 Units) Tab) 25 mcg PO MoWeFr@0900 [facility] Stop: 10/28/25 15:59 Last Admin: 09/28/25 17:11 Dose: 25 mcg
[2025-09-29 11:39] VITALS: TEMP 97.7
--- NOTE | 2025-09-29 11:42 | Ultrasound Report ---
BILATERAL LOWER EXTREMITY VENOUS DOPPLER HISTORY: Acute pain and swelling of the lower leg r/o DVT COMPARISON STUDY: Doppler study December 09, 2016. FINDINGS: There is normal compressibility, flow, and augmentation within the right lower extremity de ep venous structures. There is no occlusive deep or superficial venous thrombi identified within the left lower extremity. Chronic fibrin stranding in the left common and superficial femoral veins redem onstrated. Reversal of flow is noted within the greater saphenous vein. IMPRESSION: 1. No evidence of acute lower extremity DVT. 2. Chronic fibrin stranding within the left common and superficial femoral veins again noted related to chronic nonocclusive thrombus. ACT 112: Negative or not required by law. Electronically signed by: Ranjit Lordeo M.D. 09/29/2025 11:41 AM
[2025-09-29] MEDS: MAGNESIUM SULFATE / D5W 1 GM/100 ML BAG IV ONE (11:57)
[2025-09-29 14:09] VITALS: BP 105/60; PULSE 63; RESP 18
[2025-09-29 14:16] VITALS: O2SAT 93
--- NOTE | 2025-09-29 14:21 | XRay Report ---
XR chest 1V portable CLINICAL HISTORY: intermittent chest pain, s/p shoulder surgery COMPARISON STUDY: 08/28/2025 FINDINGS: Stable mild cardiomegaly without pulmonary vascular congestion. Inspiration is shallow. No consolidation or pleural effusion seen. No pneumothorax. There is an interval right shoulder prosthes is with adjacent expected soft tissue gas and skin sacha. IMPRESSION: No acute findings. ACT 112: Negative or not required by law. Electronically signed by: Morales Brooks M.D. 09/29/2025 2:20 PM
--- NOTE | 2025-09-29 15:41 | Cardiology Consultation ---
Date of Consultation September 29, 2025 Assessment & Plan (1) Chest pain, atypical: (2) Status post reverse arthroplasty of right shoulder: Plan Assessment: 80 year old female admitted for elective right TSA developed light chest pressure overnight with a feeling of shortness of breath. Relieved with position change. EKG with no acute changes. Troponin negative. Plan: 1. Atypical chest pain 2. S/P Shelby arthroplasty of right shoulder -Noted overnight while lying flat and associated shortness of breath. Sympotms resolved with position change and she has remained chest pain free -Strongly suspect her pain was in relationship to her shoulder surgery and sensation of her nerve block while laying flat in bed. Resolved with position change -Reassured patient and family that EKG shows no acute changes. -Troponin negative -Recent Stress echocardiogram (dobutamine) with no inducible ischemia, normal LVEF and no significant valvular disease -Further cardiac work up not indicated at this time. -Recommend outpatient follow up with cardiology in 4-5 weeks Case has been discussed with Dr. Garg. Further recommendations regarding plan of care as per his assessment. I spent a total of 40 minutes on the date of service in preparation, delivery, documentation of the care provided to the patient excluding any time spent in the performance of separately billed services. BRUCE Erazo [facility] Cardiology [facility] Supervising Physician Co-Signing Physician Notes Patient seen and examined. Past medical history, surgical history, social history and family history have been reviewed. The medical record and all the above studies have been reviewed. Case DW WALKER including management. Chest Pain- atypical - resolved, likely musculoskeletal, TROP - negative with negative dobutamine stress test in march 2025 s/p Reverse arthroplasty of R shoulder HTN HLD DM Abdominal Pain no further cardiac w/u is indicated at this time stable from cardiology standpoint for discharge f/u in cardiology clinic post discharge further medical optimization as OP as indicated risk factor modification History of Present Illness Reason for Consultation: Chest pain after shoulder surgery Requesting Physician: [facility] Attending Physician: Jose Miguel Patel MD History of Present Illness HPI: Patient is a 80 year old female with PMHx of HTN, HLD with statin intolerance, PMR, mild cognitive impairment, DM type II that presented for elective shoulder shoulder with Dr. Patel. Patient was preparing to go home today and complained of chest pain described as a light pressure strictly over the Right anterior chest wall while laying flat in bed. She felt as though she could not catch her breath. EKG Was obtained showing NSR with no acute ST-T wave changes. Troponin negative. patient reports her discomfort resolved with position change. she is resting out of bed in a chair at the time of visit. Denies chest pain, pressure or palpitations. She has a nerve block and reports that she is starting to feel it wear off as she is experiencing discomfort on the posterior aspect of her shoulder. Of note, she was recently seen in our cardiology office May 2025 following a negative dobutamine stress test in march 2025. Resting echo demonstrates normal LVEF and mild valvular disease. Patient is not on telemetry. chest xray negative Allergies Allergy/AdvReac Type Severity Reaction Status Date / Time ciprofloxacin [Cipro] Allergy Mild Rash Verified 09/28/25 05:50 tramadol Allergy Mild Itchy rash Verified 09/28/25 05:50 duloxetine Allergy Unknown Verified 09/28/25 05:50 lisinopril AdvReac Mild Cough Verified 09/28/25 05:50 Nwwhmto-PXA-YmV Reductase AdvReac Mild Joint/muscle Verified 09/28/25 05:50 Inhibitor pains [Rhdjmzv-Vjm-Ghm Reductase Inhibitor] Home Medications Medication Instructions Recorded Confirmed Type aspirin 81 mg tablet,delayed 81 mg PO HS 12/19/22 09/28/25 History release biotin 5,000 mcg disintegrating 5,000 mcg PO QAM 12/19/22 09/28/25 History tablet cholecalciferol (vitamin D3) 25 25 mcg PO 3XWK 12/19/22 09/28/25 History mcg (1,000 unit) capsule denosumab 60 mg/mL subcutaneous 60 mg subcut Q6MO 12/19/22 09/28/25 History syringe evolocumab 140 mg/mL subcutaneous 140 mg subcut Q14D 12/19/22 09/28/25 History pen injector (Luis Davies) famotidine 20 mg tablet 20 mg PO BID 12/19/22 09/28/25 History furosemide 20 mg tablet 60 mg PO QAM 12/19/22 09/28/25 History metformin 500 mg tablet,extended 1,000 mg PO QPM 12/19/22 09/28/25 History release 24 hr metoprolol succinate 50 mg capsule 75 mg PO QAM 12/19/22 09/28/25 History sprinkle, ext. release 24 hr omeprazole 20 mg capsule,delayed 20 mg PO QAM 12/19/22 09/28/25 History release spironolactone 25 mg tablet 25 mg PO QAM 12/19/22 09/28/25 History valacyclovir 1 gram tablet 2,000 mg PO BID PRN Cold Sores 12/19/22 09/28/25 History empagliflozin 10 mg tablet 10 mg PO QAM 09/10/23 09/28/25 History (Jardiance) L.acidophil-L.casei-B.bifid-B.longum-FOS 1 cap PO QAM 09/14/25 09/28/25 History 2 billion cell-50 mg capsule (Probiotic Blend) coQ10 (ubiquinol) 100 mg capsule 100 mg PO QAM 09/14/25 09/28/25 History (Qunol Jason CoQ10) acetaminophen 500 mg tablet 1,000 mg (2 x 500 mg) PO Q8H #90 09/28/25 Rx (Tylenol Extra Strength) tabs aspirin 81 mg tablet,delayed 81 mg PO BID #60 tabs 09/28/25 Rx release cefadroxil 500 mg capsule 500 mg PO Q12H #28 caps 09/28/25 Rx celecoxib 200 mg capsule (Celebrex) 200 mg PO Q12H #60 caps 09/28/25 Rx oxycodone 5 mg tablet 5 mg PO Q4H PRN pain #30 tabs 09/28/25 Rx Patient History Medical History Congestive heart failure Per records, patient denies History of pancreatitis "secondary to gallstone" Per records History of vertebral compression fracture "T12" Per records Hypertension Frequent UTI Diabetes mellitus, type 2 GERD (gastroesophageal reflux disease) Hx Munguia's esophagus listed per records, patient denies History of DVT (deep vein thrombosis) Post-op back surgery (Age 69), LLE Surgical History History of dilatation and curettage History of carpal tunnel surgery of right wrist History of lumbar spinal fusion History of colonoscopy History of cholecystectomy History of esophagogastroduodenoscopy (EGD) History of tooth extraction History of bilateral cataract extraction Family History Other No family history of adverse response to anesthesia Social History Smoking Status: Never smoker Second Hand Exposure: No; Do You Dip or Chew Tobacco: No; Hx Alcohol Use: No Hx Substance Use: No Preferred Language: Burmese Communication Ability: Effective Visual Impairment: No Limitations Hearing Ability: Normal Shearer Screen Measurer And Trimmer Required: No Beliefs That Will Affect Care: None marital status: Current Living Situation: Family current occupational status: retired Feels Safe at Home: Yes Assistive Devices: Walker Review of Systems Review of Systems: All systems reviewed & are unremarkable except as noted in HPI & below Physical Exam Constitutional: well developed and well nourished; no acute distress and not ill appearing Neck: normal visual inspection and trachea midline Respiratory: normal respiratory effort, lungs clear to auscultation Cardiovascular: RRR, no murmur, no edema Heart Sounds: normal S1 and normal S2; no murmur Vessels: dorsalis pedis pulses present; no JVD Extremities: no edema Skin: no rashes, warm and dry foam pressure dressing and sling in place right shoulder. Psychiatric: A+Ox3, euthymic affect Results & Data Vital Signs (Past 12 Hours) Vital Signs Temp Pulse Resp BP Pulse Ox O2 Del Method 09/29/25 14:15 93 Room Air 09/29/25 14:08 36.5 C 63 18 105/60 91 Room Air 09/29/25 11:39 36.5 C 62 16 101/58 L 92 Room Air 09/29/25 09:54 18 96 Room Air 09/29/25 09:50 68 94/60 L 91 Room Air 09/29/25 07:23 37.2 C 69 16 105/63 92 Room Air Laboratory Results Cardiac Enzymes 09/29/25 Range/Units 14:40 Troponin I High Sens 8.2 (0-14) pg/ml CBC 09/29/25 Range/Units 06:08 WBC 10.74 (4.8-10.8) K/ul RBC 3.75 L (4.20-5.40) M/uL Hgb 11.8 L (12.0-16.0) g/dL Hct 36.1 L (37.0-47.0) % Plt Count 173 (130-400) K/uL Neut # (Auto) 6.95 H (1.40-6.50) K/uL Lymph # (Auto) 2.06 (1.20-3.40) K/uL Davie # (Auto) 1.32 H (0.11-0.59) K/uL Eos # (Auto) 0.29 (0.00-0.50) K/uL Baso # (Auto) 0.07 (0.00-0.20) K/uL Comprehensive Metabolic Panel 09/29/25 Range/Units 06:08 Sodium 138 (136-145) mmol/L Potassium 3.8 (3.5-5.1) mmol/L Chloride 104 (98-107) mmol/L Carbon Dioxide 28 (21-32) mmol/L BUN 12 (6-23) mg/dl Creatinine 0.88 (0.6-1.2) mg/dl Glucose 131 H (70-99(Fasting)) mg/dl Calcium 8.3 L (8.6-10.3) mg/dl Intake and Output 09/29/25 09/29/25 09/29/25 06:59 14:59 22:59 Intake Total 1000 / 2640 400 / 700 300 / 700 Output Total 70 / 315 60 / 60 Balance 930 / 2325 340 / 640 300 / 640 Intake: IV 1000 / 1300 100 / 100 Magnesium Sulfate / D5w 1 gm In 100 / 100 100 ml @ 50 mls/hr IV ONE ONE Rx#:[id number] Sodium Chloride 0.9% 1,000 ml @ 1000 / 1000 100 mls/hr IV .Q10H [facility] Rx#: [id number] Oral 300 / 600 300 / 600 Output: Drain Output 70 / 215 60 / 60 Right Shoulder Hemovac 70 / 215 60 / 60 Other: # Unmeasured Voids 1 PG Care Time/CCT Total # of Minutes Spent Total Time Spent with Patient: Total time spent is greater than 50% in coordination of care (as documented) at patient's floor/unit and/or counseling patient: Coding Level of Care Code 22063 IN/OBS CONSULT LVL 5,80M Diagnoses Chest pain, atypical R07.89 Status post reverse arthroplasty of right shoulder Z96.611 Time Spent (min) 40
--- NOTE | 2025-09-29 21:59 | Electrocardiogram Report ---
Test Reason : Blood Pressure : */* mmHG Vent. 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
== END 2025-09-29 18:07 | disposition home health service (06) ==
LOC: ASU 05:29 → 3E 05:29